=== PATIENT | female | born 1980 | race Caucasian/White ===

== ENCOUNTER 2017-07-22 02:25 | Emergency (ER) | payer OTHER ==
[~2017-07-22] VITALS: Ht 289.5 cm; Wt 81.6 kg
[~2017-07-22 02:25] MED LIST: AMANTADINE HCL100 M1 PO; AMANTADINE PO; AMANTADINE100 MG PO; AMANTIDINE HCL100 MG PO; ATARAX,VISTARIL50 MG PO; BACTRIM DS 8001 TA1 PO; BENADRYL25 M2 PO; BUSPAR5 MG PO; CARBIDOPA/LEVOD1 TA1 PO; CATAPRES0.2 M1 PO; CLOTRIM ANTIFUNGAL1% T; Cleocin150 MG PO; EFFEXOR XR150 M1 PO; EFFEXOR XR150 MG PO; EFFEXOR XR75 M1 PO; FLEXERIL10 MG PO; KLONOPIN2 M1 PO; KLONOPIN2 MG PO; KROGER NIC21 MG/24 H T; MACROBID100 M1 PO; MAGIC MOUTHWASH PO; MIRALAX POWDER17 G1 PO; MOTRIN800 MG PO; ONDANSETRON HYDR4 M1 PO; PHENADOZ12.5 MG R; PRILOSEC OTC20 MG PO; PRILOSEC20 M1 PO; PRILOSEC40 M1 PO; PRILOSEC40 MG PO; PROTONIX40 MG PO; REMERON30 MG PO; SINEMET 25-1001 TA1 PO; THERA TABS1 TAB PO; TRAZADONE HYDR100 MG PO; TRAZODONE HCL150 MG PO; TRAZODONE150 MG PO; TRAZODONE50 MG PO; VENTOLIN H0.09 MG/AC INH; VISTARIL50 MG PO; ZOFRAN ODT4 MG SL; Zofran4 MG PO
[2017-07-22 03:18] LABS: BASO % 0.6 % (0.0-1.0); EOS # 0.2 10*3/uL (0.0-0.4); EOS % 3.9 % (1.0-4.0); HEMATOCRIT 34.7 % (37.0-47.0); HEMOGLOBIN 11.5 g/dl (12.0-16.0); LYMPH # 2.1 10*3/uL (1.3-4.4); LYMPH % 39.7 % (27.0-41.0); MEAN CELL VOLUME 90.1 fl (81.0-99.0); MEAN CORPUSCULAR HGB 29.9 pg (27.0-31.0); MEAN CORPUSCULAR HGB CONC 33.1 g/dl (33.0-37.0); MEAN PLATELET VOLUME 9.8 fl (9.6-12.3); MONO # 0.6 10*3/uL (0.1-1.0); MONO % 10.5 % (3.0-9.0); NEUT # 2.4 10*3/uL (2.3-7.9); NEUT % 45.1 % (47.0-73.0); PLATELET COUNT AUTOMATED 182 10*3/uL (130-400); RED BLOOD COUNT 3.85 10*6/uL (4.10-5.10); RED CELL DISTRI WIDTH 12.6 % (0-14.5); WHITE BLOOD COUNT 5.3 10*3/uL (4.8-10.8)
[2017-07-22 03:32] LABS: BILIRUBIN NEGATIVE (NEGATIVE); BLOOD NEGATIVE (NEGATIVE); CLARITY SL CLOUDY (CLEAR); COLOR YELLOW (YELLOW); GLUCOSE NEGATIVE (NEGATIVE); KETONE NEGATIVE (NEGATIVE); LEUKO ESTERASE NEGATIVE (NEGATIVE); NITRITE NEGATIVE (NEGATIVE); SPECIFIC GRAVITY 1.015 (1.005-1.030); UROBILINOGEN 0.2 E.U./dl (0.2-1.0)
[2017-07-22 03:38] LABS: BUN 6 mg/dl (7-24); CREATININE 0.95 mg/dL (0.55-1.02)
[2017-07-22 03:40] LABS: URINE AMPHETAMINES < 1000 (1000ng/ml); URINE BARBITURATES < 200 (200ng/ml); URINE BENZODIAZEPINES < 200 (200ng/ml); URINE CANNABINOIDS (THC) > 50 (50ng/ml); URINE COCAINE > 300 (300ng/ml); URINE METHADONE < 300 (300ng/ml); URINE OPIATES > 300 (300ng/ml); URINE PHENCYCLIDINE < 25 (25ng/ml)
[2017-07-22 03:41] LABS: EPITHELIAL CELLS 40-45; RBC 0-2 rbc/hpf (0-2); WBC 0-2 wbc/hpf (0-5)
[2017-07-22 03:44] LABS: ACETAMINOPHEN (TYLENOL) < 2.0 ug/ml (10-30); ETHYL ALCOHOL < 3.0 mg/dl (<3)
[2017-07-22 04:25] LABS: CHLORIDE 104 mmol/L (98-107); POTASSIUM 3.6 mmol/L (3.5-5.1); SODIUM 141 mmol/L (136-145)
== END 2017-07-22 04:18 | disposition home or self-care (01) ==
LOC: ED 02:25
PROVIDERS: Emergency Medicine Emergency Medical Services
DX: F41.1 Generalized anxiety disorder (principal); F43.0 Acute stress reaction; F17.200 Nicotine dependence, unspecified, uncomplicated; F11.10 Opioid abuse, uncomplicated; J45.909 Unspecified asthma, uncomplicated; F32.9 Major depressive disorder, single episode, unspecified; G25.81 Restless legs syndrome; G20 Parkinson's disease; Z79.899 Other long term (current) drug therapy; Z91.030 Bee allergy status; Z88.1 Allergy status to other antibiotic agents

== ENCOUNTER 2017-07-24 07:30 | Emergency (ER) | payer OTHER ==
[~2017-07-24] VITALS: Ht 162.5 cm
[2017-07-24] MEDS ORDERED: NIX CREME RINSE60 M1 T (08:04)
[2017-07-24] MEDS ORDERED: VISTARIL25 M2 PO (08:04)
== END 2017-07-24 08:18 | disposition home or self-care (01) ==
LOC: ED 07:30
DX: F19.10 Other psychoactive substance abuse, uncomplicated (principal); F41.9 Anxiety disorder, unspecified; L29.9 Pruritus, unspecified; J45.909 Unspecified asthma, uncomplicated; F11.10 Opioid abuse, uncomplicated; F17.200 Nicotine dependence, unspecified, uncomplicated; Z91.030 Bee allergy status; Z88.1 Allergy status to other antibiotic agents; Z91.018 Allergy to other foods; Z79.899 Other long term (current) drug therapy

== ENCOUNTER 2017-10-25 13:46 | Emergency (ER) | payer OTHER ==
[~2017-10-25] VITALS: Ht 162.5 cm; Wt 83.9 kg
[~2017-10-25 13:46] MED LIST changes: +NIX CREME RINSE60 M1 T; +VISTARIL25 M2 PO
[2017-10-25 14:22] LABS: BASO % 0.6 % (0.0-1.0); EOS # 0.1 10*3/uL (0.0-0.4); EOS % 2.3 % (1.0-4.0); HEMATOCRIT 31.3 % (37.0-47.0); HEMOGLOBIN 10.3 g/dl (12.0-16.0); LYMPH # 1.4 10*3/uL (1.3-4.4); LYMPH % 26.8 % (27.0-41.0); MEAN CELL VOLUME 89.7 fl (81.0-99.0); MEAN CORPUSCULAR HGB 29.5 pg (27.0-31.0); MEAN CORPUSCULAR HGB CONC 32.9 g/dl (33.0-37.0); MEAN PLATELET VOLUME 10.1 fl (9.6-12.3); MONO # 0.5 10*3/uL (0.1-1.0); MONO % 9.3 % (3.0-9.0); NEUT # 3.1 10*3/uL (2.3-7.9); NEUT % 60.4 % (47.0-73.0); PLATELET COUNT AUTOMATED 170 10*3/uL (130-400); RED BLOOD COUNT 3.49 10*6/uL (4.10-5.10); RED CELL DISTRI WIDTH 14.5 % (0-14.5); WHITE BLOOD COUNT 5.2 10*3/uL (4.8-10.8)
[2017-10-25 14:42] LABS: ALBUMIN 3.4 gm/dl (3.1-4.5); ALKALINE PHOSPHATASE 86 U/L (45-117); BUN 6 mg/dl (7-24); CHLORIDE 105 mmol/L (98-107); CREATININE 1.02 mg/dL (0.55-1.02); POTASSIUM 4.3 mmol/L (3.5-5.1); SGOT/AST 49 IU/L (3-35); SGPT/ALT 37 U/L (12-78); SODIUM 139 mmol/L (136-145); TOTAL PROTEIN 7.4 gm/dL (6.4-8.2)
[2017-10-25] MEDS ORDERED: ANAPROX DS550 MG PO (14:54)
[2017-10-25] MEDS ORDERED: CEFADROXIL500 M1 PO (14:54)
== END 2017-10-25 14:59 | disposition home or self-care (01) ==
LOC: ED 13:46
PROVIDERS: Physician Assistant
DX: L03.114 Cellulitis of left upper limb (principal); F10.10 Alcohol abuse, uncomplicated; F17.200 Nicotine dependence, unspecified, uncomplicated; Z91.030 Bee allergy status; Z88.1 Allergy status to other antibiotic agents; Z79.899 Other long term (current) drug therapy; Z86.14 Personal history of Methicillin resistant Staphylococcus aureus infection; Z86.19 Personal history of other infectious and parasitic diseases

== ENCOUNTER 2017-12-18 08:34 | Emergency (ER) | payer OTHER ==
[~2017-12-18] VITALS: Ht 162.5 cm; Wt 81.6 kg
[~2017-12-18 08:34] MED LIST changes: +ANAPROX DS550 MG PO; +CEFADROXIL500 M1 PO
[2017-12-18] MEDS ORDERED: OMEPRAZOLE D/R20 MG PO (08:53)
[2017-12-18] MEDS ORDERED: CLARITIN10 MG PO ×2 (08:53→10:10)
[2017-12-18] MEDS ORDERED: FLONASE ALLERG9.9 ML NAS (10:10)
[2017-12-18] MEDS ORDERED: PREDNISONE10 MG PO (10:10)
[2017-12-18] MEDS ORDERED: ROBITUSSIN DM 105 ML PO (10:10)
== END 2017-12-18 10:48 | disposition home or self-care (01) ==
LOC: ED 08:34
DX: J20.9 Acute bronchitis, unspecified (principal); R03.0 Elevated blood-pressure reading, without diagnosis of hypertension; J45.909 Unspecified asthma, uncomplicated; F41.9 Anxiety disorder, unspecified; F32.9 Major depressive disorder, single episode, unspecified; F17.200 Nicotine dependence, unspecified, uncomplicated; F10.10 Alcohol abuse, uncomplicated; Z91.030 Bee allergy status; Z88.1 Allergy status to other antibiotic agents; Z88.8 Allergy status to other drugs, medicaments and biological substances; Z79.899 Other long term (current) drug therapy

== ENCOUNTER 2018-02-07 10:57 | Emergency (ER) | payer OTHER ==
[~2018-02-07] VITALS: Ht 162.5 cm; Wt 86.2 kg
[~2018-02-07 10:57] MED LIST changes: +CLARITIN10 MG PO; +FLONASE ALLERG9.9 ML NAS; +OMEPRAZOLE D/R20 MG PO; +PREDNISONE10 MG PO; +ROBITUSSIN DM 105 ML PO
[2018-02-07 11:34] LABS: BASO # 0.1 10*3/uL (0.0-0.1); BASO % 0.6 % (0.0-1.0); EOS # 0.1 10*3/uL (0.0-0.4); EOS % 0.7 % (1.0-4.0); HEMOGLOBIN 12.5 g/dl (12.0-16.0); LYMPH # 1.1 10*3/uL (1.3-4.4); LYMPH % 12.7 % (27.0-41.0); MEAN CELL VOLUME 87.3 fl (81.0-99.0); MEAN CORPUSCULAR HGB 29.5 pg (27.0-31.0); MEAN CORPUSCULAR HGB CONC 33.8 g/dl (33.0-37.0); MEAN PLATELET VOLUME 10.3 fl (9.6-12.3); MONO # 0.7 10*3/uL (0.1-1.0); MONO % 8.4 % (3.0-9.0); NEUT # 6.5 10*3/uL (2.3-7.9); NEUT % 77.4 % (47.0-73.0); PLATELET COUNT AUTOMATED 192 10*3/uL (130-400); RED BLOOD COUNT 4.24 10*6/uL (4.10-5.10); RED CELL DISTRI WIDTH 13.8 % (0-14.5); WHITE BLOOD COUNT 8.4 10*3/uL (4.8-10.8)
[2018-02-07 11:46] LABS: ACT PARTIAL THROMBO TIME 29.7 SECONDS (20.8-31.5)
[2018-02-07 11:51] LABS: ALBUMIN 3.9 gm/dl (3.1-4.5); ALKALINE PHOSPHATASE 118 U/L (45-117); BUN 6 mg/dl (7-24); CHLORIDE 98 mmol/L (98-107); CREATININE 0.75 mg/dL (0.55-1.02); POTASSIUM 3.9 mmol/L (3.5-5.1); SGOT/AST 112 IU/L (3-35); SGPT/ALT 67 U/L (12-78); SODIUM 133 mmol/L (136-145); TOTAL PROTEIN 8.4 gm/dL (6.4-8.2); TROPONIN I < 0.015 ng/ml (<0.045)
[2018-02-07 12:03] LABS: BILIRUBIN NEGATIVE (NEGATIVE); BLOOD NEGATIVE (NEGATIVE); CLARITY SL CLOUDY (CLEAR); COLOR YELLOW (YELLOW); GLUCOSE NEGATIVE (NEGATIVE); KETONE NEGATIVE (NEGATIVE); LEUKO ESTERASE 1+ (NEGATIVE); NITRITE NEGATIVE (NEGATIVE); PH 6.5 (5.0-9.0); SPECIFIC GRAVITY <= 1.005 (1.005-1.030); UROBILINOGEN 0.2 E.U./dl (0.2-1.0)
[2018-02-07 12:10] LABS: URINE AMPHETAMINES < 1000 (1000ng/ml); URINE BARBITURATES < 200 (200ng/ml); URINE BENZODIAZEPINES < 200 (200ng/ml); URINE CANNABINOIDS (THC) < 50 (50ng/ml); URINE COCAINE > 300 (300ng/ml); URINE METHADONE < 300 (300ng/ml); URINE OPIATES < 300 (300ng/ml)
[2018-02-07 12:11] LABS: BACTERIA 1+; EPITHELIAL CELLS 16-20
[2018-02-07 12:13] LABS: URINE PHENCYCLIDINE < 25 (25ng/ml)
== END 2018-02-07 13:08 | disposition home or self-care (01) ==
LOC: ED 10:57
PROVIDERS: Emergency Medicine
DX: F14.10 Cocaine abuse, uncomplicated (principal); F11.10 Opioid abuse, uncomplicated; F10.10 Alcohol abuse, uncomplicated; F41.9 Anxiety disorder, unspecified; J45.909 Unspecified asthma, uncomplicated; Z88.4 Allergy status to anesthetic agent; Z91.030 Bee allergy status; Z86.19 Personal history of other infectious and parasitic diseases

== ENCOUNTER 2018-04-05 15:48 | Inpatient (IN) | payer OTHER ==
[~2018-04-05] VITALS: Ht 162.5 cm; Wt 83.9 kg
[2018-04-05] VITALS: BP 135/78
[2018-04-05 16:49] VITALS: BP 158/80
[2018-04-05] MEDS ORDERED: BUPRENORPHINE HY8 MG SL (17:17)
[2018-04-05 17:27] LABS: BASO % 0.5 % (0.0-1.0); EOS # 0.1 10*3/uL (0.0-0.4); EOS % 0.8 % (1.0-4.0); HEMATOCRIT 34.8 % (37.0-47.0); HEMOGLOBIN 11.9 g/dl (12.0-16.0); LYMPH # 2.8 10*3/uL (1.3-4.4); LYMPH % 43.3 % (27.0-41.0); MEAN CELL VOLUME 86.1 fl (81.0-99.0); MEAN CORPUSCULAR HGB 29.5 pg (27.0-31.0); MEAN CORPUSCULAR HGB CONC 34.2 g/dl (33.0-37.0); MEAN PLATELET VOLUME 9.6 fl (9.6-12.3); MONO # 0.4 10*3/uL (0.1-1.0); MONO % 6.3 % (3.0-9.0); NEUT # 3.1 10*3/uL (2.3-7.9); NEUT % 48.9 % (47.0-73.0); PLATELET COUNT AUTOMATED 177 10*3/uL (130-400); RED BLOOD COUNT 4.04 10*6/uL (4.10-5.10); RED CELL DISTRI WIDTH 12.4 % (0-14.5); WHITE BLOOD COUNT 6.4 10*3/uL (4.8-10.8)
[2018-04-05 17:30] VITALS: BP 158/80
[2018-04-05 17:36] LABS: INTERNATIONAL NORM RATIO 1.1 (2.0-3.5)
[2018-04-05 17:42] LABS: ALBUMIN 3.7 gm/dl (3.1-4.5); ALKALINE PHOSPHATASE 97 U/L (45-117); BUN 5 mg/dl (7-24); CHLORIDE 98 mmol/L (98-107); CREATININE 0.77 mg/dL (0.55-1.02); POTASSIUM 3.5 mmol/L (3.5-5.1); SGOT/AST 72 IU/L (3-35); SGPT/ALT 53 U/L (12-78); SODIUM 132 mmol/L (136-145); TOTAL PROTEIN 7.5 gm/dL (6.4-8.2)
[2018-04-05 17:49] LABS: BETA-HCG, QUANT < 1.0 mIU/mL (1-3)
[2018-04-05] MEDS ORDERED: BUPRENORPHINE HY2 MG SL (17:58)
[2018-04-05] MEDS ORDERED: VISTARIL50 MG PO (17:59)
[2018-04-05] MEDS ORDERED: AMANTADINE HCL100 M1 PO (18:00)
[2018-04-05] MEDS ORDERED: OMEPRAZOLE40 MG PO (18:01)
[2018-04-05] MEDS ORDERED: IBU800 M1 PO (18:02)
[2018-04-05 18:41] LABS: BILIRUBIN NEGATIVE (NEGATIVE); BLOOD NEGATIVE (NEGATIVE); CLARITY CLEAR (CLEAR); COLOR YELLOW (YELLOW); GLUCOSE NEGATIVE (NEGATIVE); KETONE NEGATIVE (NEGATIVE); LEUKO ESTERASE NEGATIVE (NEGATIVE); NITRITE NEGATIVE (NEGATIVE); SPECIFIC GRAVITY <= 1.005 (1.005-1.030); UROBILINOGEN 0.2 E.U./dl (0.2-1.0)
[2018-04-05 18:50] LABS: RBC 0-2 rbc/hpf (0-2); URINE AMPHETAMINES < 1000 (1000ng/ml); URINE BARBITURATES < 200 (200ng/ml); URINE BENZODIAZEPINES < 200 (200ng/ml); URINE CANNABINOIDS (THC) < 50 (50ng/ml); URINE COCAINE > 300 (300ng/ml); URINE METHADONE < 300 (300ng/ml); URINE OPIATES > 300 (300ng/ml); WBC 0-2 wbc/hpf (0-5)
[2018-04-05 18:51] LABS: BACTERIA TRACE
[2018-04-05 18:53] LABS: URINE PHENCYCLIDINE < 25 (25ng/ml)
[2018-04-05 20:00] VITALS: BP 119/71
[2018-04-06 04:00] VITALS: BP 149/80
[2018-04-06 08:00] VITALS: BP 142/72
[2018-04-06 12:00] VITALS: BP 122/72
[2018-04-06 16:00] VITALS: BP 141/91
[2018-04-06 20:00] VITALS: BP 162/93
[2018-04-06 20:30] VITALS: BP 156/84
[2018-04-07 00:12] VITALS: BP 115/84
[2018-04-07 08:00] VITALS: BP 130/84
[2018-04-07 12:00] VITALS: BP 126/78
[2018-04-07 20:00] VITALS: BP 134/83
[2018-04-08] VITALS: BP 129/69
[2018-04-08 07:04] LABS: BASO % 0.8 % (0.0-1.0); EOS # 0.2 10*3/uL (0.0-0.4); EOS % 4.7 % (1.0-4.0); HEMATOCRIT 38.2 % (37.0-47.0); HEMOGLOBIN 12.8 g/dl (12.0-16.0); LYMPH # 1.8 10*3/uL (1.3-4.4); LYMPH % 47.4 % (27.0-41.0); MEAN CORPUSCULAR HGB 29.5 pg (27.0-31.0); MEAN CORPUSCULAR HGB CONC 33.5 g/dl (33.0-37.0); MEAN PLATELET VOLUME 10.3 fl (9.6-12.3); MONO # 0.4 10*3/uL (0.1-1.0); MONO % 9.1 % (3.0-9.0); NEUT # 1.5 10*3/uL (2.3-7.9); PLATELET COUNT AUTOMATED 190 10*3/uL (130-400); RED BLOOD COUNT 4.34 10*6/uL (4.10-5.10); RED CELL DISTRI WIDTH 12.4 % (0-14.5); WHITE BLOOD COUNT 3.8 10*3/uL (4.8-10.8)
[2018-04-08 07:25] LABS: CREATININE 0.77 mg/dL (0.55-1.02)
[2018-04-08 08:00] VITALS: BP 122/74
[2018-04-08 12:00] VITALS: BP 127/72
[2018-04-08 16:00] VITALS: BP 125/72
[2018-04-08 20:00] VITALS: BP 113/81
== END 2018-04-08 23:15 | disposition left against medical advice (07) | DRG 894 ==
LOC: 5E 15:48
PROVIDERS: Family Medicine; Internal Medicine
DX: F11.10 Opioid abuse, uncomplicated (principal); E87.1 Hypo-osmolality and hyponatremia; F33.9 Major depressive disorder, recurrent, unspecified; F10.129 Alcohol abuse with intoxication, unspecified; D64.9 Anemia, unspecified; F19.10 Other psychoactive substance abuse, uncomplicated; F14.10 Cocaine abuse, uncomplicated; R73.9 Hyperglycemia, unspecified; F41.1 Generalized anxiety disorder; R74.0 Nonspecific elevation of levels of transaminase and lactic acid dehydrogenase [LDH]; B18.2 Chronic viral hepatitis C; F17.210 Nicotine dependence, cigarettes, uncomplicated; Z82.49 Family history of ischemic heart disease and other diseases of the circulatory system; Z83.6 Family history of other diseases of the respiratory system; Z83.3 Family history of diabetes mellitus; Z82.0 Family history of epilepsy and other diseases of the nervous system; Z88.8 Allergy status to other drugs, medicaments and biological substances; Z91.030 Bee allergy status; Z91.018 Allergy to other foods; Z79.899 Other long term (current) drug therapy; Z71.6 Tobacco abuse counseling

== ENCOUNTER 2019-01-30 16:03 | Emergency (ER) | payer OTHER ==
[~2019-01-30] VITALS: Ht 162.5 cm; Wt 86.2 kg
[~2019-01-30 16:03] MED LIST changes: +BUPRENORPHINE HY2 MG SL; +BUPRENORPHINE HY8 MG SL; +IBU800 M1 PO; +OMEPRAZOLE40 MG PO
[2019-01-30] MEDS ORDERED: VIBRAMYCIN100 MG PO (17:27)
[2019-01-30] MEDS ORDERED: DELTASONE20 M1 PO (17:27)
[2019-02-22] MEDS ORDERED: DOCUSATE SODIU100 M2 PO (18:28)
[2019-02-22] MEDS ORDERED: BUSPIRONE HCL30 MG PO (18:28)
[2019-02-22] MEDS ORDERED: AMANTADINE HCL100 M1 PO (18:29)
[2019-02-22] MEDS ORDERED: OMEPRAZOLE40 MG PO (18:29)
[2019-02-22] MEDS ORDERED: VENLAFAXINE150 MG PO (18:30)
[2019-02-22] MEDS ORDERED: ATARAX,VISTARIL50 MG PO (18:31)
[2019-02-25] MEDS ORDERED: METHOCARBAMOL750 M1 PO (12:17)
[2019-02-25] MEDS ORDERED: ROPINIROLE HYD0.5 MG PO (12:17)
[2019-02-25] MEDS ORDERED: ATARAX,VISTARIL50 MG PO (12:17)
[2019-02-25] MEDS ORDERED: LORAZEPAM1 MG PO (12:17)
[2019-03-21] MEDS ORDERED: TRAZODONE50 MG PO (22:59)
[2019-03-21] MEDS ORDERED: [UNRECOGNIZED DRUG - OTHER] R (23:00)
[2019-03-21] MEDS ORDERED: HYDROXYZINE PAM50 MG PO (23:02)
[2019-03-21] MEDS ORDERED: HYDROCHLOROTH12.5 M3 PO (23:03)
[2019-03-21] MEDS ORDERED: LORAZEPAM1 MG PO (23:03)
[2019-07-11] MEDS ORDERED: CEPHALEXIN500 M1 PO (10:57)
[2019-07-11] MEDS ORDERED: ZOFRAN4 MG PO (10:57)
== END 2019-01-30 17:45 | disposition home or self-care (01) ==
LOC: ED 16:03
DX: J40 Bronchitis, not specified as acute or chronic (principal); H92.02 Otalgia, left ear; F17.200 Nicotine dependence, unspecified, uncomplicated; Z91.030 Bee allergy status; Z88.1 Allergy status to other antibiotic agents

== ENCOUNTER 2019-03-26 23:07 | Emergency (ER) | payer OTHER ==
[~2019-03-26] VITALS: Ht 162.5 cm; Wt 90.7 kg
[~2019-03-26 23:07] MED LIST changes: +BUSPIRONE HCL30 MG PO; +DELTASONE20 M1 PO; +DOCUSATE SODIU100 M2 PO; +HYDROCHLOROTH12.5 M3 PO; +HYDROXYZINE PAM50 MG PO; +LORAZEPAM1 MG PO; +METHOCARBAMOL750 M1 PO; +ROPINIROLE HYD0.5 MG PO; +VENLAFAXINE150 MG PO; +VIBRAMYCIN100 MG PO; +[UNRECOGNIZED DRUG - OTHER] R
[2019-03-26] MEDS ORDERED: 'CLONIDINE0.1 MG PO (23:14)
[2019-03-26] MEDS ORDERED: DICYCLOMINE HCL10 MG PO (23:16)
[2019-03-26] MEDS ORDERED: BACLOFEN5 MG PO (23:16)
[2019-03-26] MEDS ORDERED: VIVITROL380 MG IM (23:17)
[2019-07-11] MEDS ORDERED: ZOFRAN4 MG PO (10:57)
[2019-07-11] MEDS ORDERED: CEPHALEXIN500 M1 PO (10:57)
== END 2019-03-27 03:01 | disposition short-term general hospital (02) ==
LOC: ED 23:07
DX: S51.812A Laceration without foreign body of left forearm, initial encounter (principal); F17.200 Nicotine dependence, unspecified, uncomplicated; Z88.1 Allergy status to other antibiotic agents; Z79.899 Other long term (current) drug therapy; Z91.030 Bee allergy status; Z91.018 Allergy to other foods; Z87.19 Personal history of other diseases of the digestive system; Z86.19 Personal history of other infectious and parasitic diseases; W26.0XXA Contact with knife, initial encounter; Y93.89 Activity, other specified; Y92.89 Other specified places as the place of occurrence of the external cause; Y99.8 Other external cause status

== ENCOUNTER 2019-04-27 18:49 | Inpatient (IN) | payer OTHER ==
[~2019-04-27] VITALS: Ht 162.5 cm; Wt 95.8 kg
--- NOTE | ~2019-04-27 | CON ---
[place], [place] REPORT OF CONSULTATION NAME: ETHAN ESPINOZA [facility] #: [id number] UNIT #: [id number] ROOM: 420 DOCTOR: METE FIGUEROA MD BIRTHDATE: [birth year] DOS: 04/29/2019 GASTROENDOSCOPIC CONSULTATION REPORT HISTORY OF PRESENT ILLNESS: This is a 38-year-old patient who presented with chief complaint of epigastric abdominal pain. The patient has been consumer of avid number of nonsteroidal anti-inflammatories per day, also history of nicotine consumption as well as history of alcohol usage for years and at the present as well. Her abdominal pain in the Emergency Room was investigated with a CBC: White blood cell was 54.9, H and H of 10 and 32, normocytic with normal platelet count. Differential within normal limits. Lactic acid was normal. INR was 1.1. Comprehensive metabolic panel shows creatinine 1.3, GFR greater than 67. Liver function tests: AST, ALT of 60 and 48 and lipase of 506, alkaline phosphatase normal. Troponin within normal limits. Chest x-ray was normal. Urine drug studies were normal. The CT scan of the abdomen and pelvis unremarkable cervical neck studies, no acute intracranial pathology. CT scan of the head was evaluated and no intracranial pathology. Glucose of 88 and repeat study is essentially the same. No pedal edema, affect of GI bleed except dilutions and so forth. PAST MEDICAL HISTORY: Associated with recurrent pancreatitis, anemia, endometriosis, alcohol withdrawal symptoms, gastroesophageal reflux, cross abdominal pain, and obesity. PAST SURGICAL HISTORY: Associated benign mass, left leg, laparoscopy history endometriosis diagnosis and minor surgeries. SOCIAL HISTORY: Smoker and alcohol consumption, recreational drugs abuse and choice of drugs, heroin. FAMILY HISTORY: Supportive family. Diabetes, hypertension. ALLERGIES: CLINDAMYCIN AND FOOD ALLERGIES TO WALNUT, FUNDAMENTAL ALLERGIES TO BEE STING. MEDICATIONS: List was reviewed. REVIEW OF SYSTEMS: HEENT: Denies double vision, blurred vision. RESPIRATORY: Denies acute shortness of breath. CARDIOVASCULAR: No active chest pain. DIGESTIVE SYSTEM: Cross abdominal pain. GASTROINTESTINAL SYMPTOMS: Except cross abdominal pain, recurrent pancreatitis. PHYSICAL EXAMINATION: GENERAL: Appears to be alert. VITAL SIGNS: Within normal limit. HEENT: Benign for age and category of disease. NECK: Supple, no thyromegaly. CHEST: Symmetric anatomy and equal expansion. [place], [place] REPORT OF CONSULTATION NAME: ETHAN ESPINOZA UNIT #: [id number] ROOM: 420 DOCTOR: HENRY ARIZA,MEET BIRTHDATE: [birth year] HEART: Normal sinus rhythm, no gallop. ABDOMEN: Large, soft. No hepato-organomegaly. Bowel sounds, nonspecific tenderness in all quadrants of the abdomen. EXTREMITIES: No cyanosis, no pedal edema. NEUROLOGIC: Alert and oriented to time, place and person. IMPRESSION: Alcoholic pancreatitis, nicotine, alcohol and recreational drugs. Other adjunctive diagnoses as outlined above. The patient has been avid consumer of nonsteroidal anti-inflammatory. We are ruling out peptic ulcer disease in addition, history of hepatitis C, history of complication of drug and alcohol use, recurrent pancreatitis. PLAN AND DISCUSSION: Endoscopic evaluation and clinical reassessment. MEET FIGUEROA MD CM:CONSTR:REPORT OF CONSULTATION 1437 05/11/19 0722 interface
--- NOTE | ~2019-04-27 | O ---
[place], [place] OPERATIVE NOTE NAME: ETHAN ESPINOZA UNIT #: [id number] ROOM: 420 DOCTOR: MEET FIGUEROA MD BIRTHDATE: [birth year] DOS: 04/29/2019 INDICATIONS: The patient has presented with epigastric distress, initially elevated lipase, subsequently normalized lipase, history of avid consumption of nonsteroidal anti-inflammatory. Today's procedure part of investigation is panendoscopy plus biopsy. PREMEDICATION: Propofol. SCOPE: Olympus forward-viewing gastroscope Q10 video. PROCEDURE: After putting the patient in left lateral position and application of lubricant to the scope, the scope was introduced. Thereafter, under direct visualization, advanced through the length of esophagus without difficulty. Esophagus was free of esophageal varicosity surprisingly. Gastric pouch was entered. Mild gastritis was seen. There was no evidence of gastric varicosity as well. Gastritis was noticed. Antral biopsy obtained. Duodenal bulb, second and third part within normal limits. The patient extubated and tolerated the procedure well. IMPRESSION: Epigastric pain, most likely secondary to mild gastritis and residual pancreatitis. There were no ulcers secondary to nonsteroidal anti-inflammatory, chronic abuse. PLAN AND DISCUSSION: This patient would be placed on omeprazole 20 mg 1 every day, soft diet. Advised to abstain from smoking, recreational drug use and alcohol beverages and follow up as outpatient. MEET FIGUEROA MD CM:OPRECORD:OPERATIVE NOTE [id number] MEET FIGUEROA MD 04/30/19 1153 interface
--- NOTE | ~2019-04-27 | EKG ---
[place], [place] ELECTROCARDIOGRAM REPORT NAME: ETHAN ESPINOZA UNIT #: [id number] ROOM: 420 DOCTOR: HERBERT DRAFT REPORT BIRTHDATE: [birth year] [facility] Test Date: 2019-04-27 Test Time: 19:27:11 Pat Name: ETHAN ESPINOZA Department: Room: 420 Gender: F Brownfield Redevelopment Specialist: : 1980 Requested By: ANTOINE MARCOS DNP Order Number: [id number] Reading MD: Josie Sanchez Measurements Intervals [place] Rate: 87 P: 77 PA: 146 QRS: 70 QRSD: 88 T: 48 QT: 400 QTc: 482 Interpretive Statements Sinus rhythm Baseline wander in lead(s) II,III,aVF Compared to ECG 04/11/2019 08:59:54 No significant changes Electronically Signed On 05-01-2019 11:44:42 PDT by Josie Sanchez CM:EKGRPT:ELECTROCARDIOGRAM REPORT 26 1144 ANTOINE MARCOS DNP EPIPHANY DRAFT REPORT ANTOINE MARCOS DNP
[~2019-04-27 18:49] MED LIST changes: +'CLONIDINE0.1 MG PO; +BACLOFEN5 MG PO; +DICYCLOMINE HCL10 MG PO; +VIVITROL380 MG IM
[2019-04-27 18:50] VITALS: BP 151/101
[2019-04-27] MEDS ORDERED: HYDROCHLOROTHIA25 M1 PO (18:57)
[2019-04-27 19:37] LABS: BASO # 0.1 10*3/uL (0.0-0.1); EOS # 0.2 10*3/uL (0.0-0.4); EOS % 3.3 % (1.0-4.0); HEMOGLOBIN 10.4 g/dl (12.0-16.0); LYMPH # 1.3 10*3/uL (1.3-4.4); LYMPH % 26.4 % (27.0-41.0); MEAN CELL VOLUME 90.9 fl (81.0-99.0); MEAN CORPUSCULAR HGB 29.5 pg (27.0-31.0); MEAN CORPUSCULAR HGB CONC 32.5 g/dl (33.0-37.0); MEAN PLATELET VOLUME 10.8 fl (9.6-12.3); MONO # 0.4 10*3/uL (0.1-1.0); MONO % 9.1 % (3.0-9.0); NEUT # 2.9 10*3/uL (2.3-7.9); PLATELET COUNT AUTOMATED 152 10*3/uL (130-400); RED BLOOD COUNT 3.52 10*6/uL (4.10-5.10); RED CELL DISTRI WIDTH 14.1 % (0-14.5); WHITE BLOOD COUNT 4.9 10*3/uL (4.8-10.8)
[2019-04-27 19:49] LABS: INTERNATIONAL NORM RATIO 1.1 (2.0-3.5)
[2019-04-27 19:52] LABS: ALBUMIN 3.4 gm/dl (3.1-4.5); ALKALINE PHOSPHATASE 113 U/L (45-117); BUN 17 mg/dl (7-24); CHLORIDE 101 mmol/L (98-107); CREATININE 1.13 mg/dL (0.55-1.02); LIPASE 506 U/L (73-393); POTASSIUM 3.7 mmol/L (3.5-5.1); SGOT/AST 60 IU/L (3-35); SGPT/ALT 48 U/L (12-78); SODIUM 135 mmol/L (136-145); TOTAL PROTEIN 7.7 gm/dL (6.4-8.2)
[2019-04-27 19:55] LABS: ETHYL ALCOHOL < 3.0 mg/dl (<3); TROPONIN I < 0.015 ng/ml (<0.045)
[2019-04-27 21:03] LABS: BILIRUBIN NEGATIVE (NEGATIVE); BLOOD NEGATIVE (NEGATIVE); CLARITY CLEAR (CLEAR); COLOR YELLOW (YELLOW); GLUCOSE NEGATIVE (NEGATIVE); KETONE NEGATIVE (NEGATIVE); LEUKO ESTERASE NEGATIVE (NEGATIVE); NITRITE NEGATIVE (NEGATIVE); SPECIFIC GRAVITY <= 1.005 (1.005-1.030); UROBILINOGEN 0.2 E.U./dl (0.2-1.0)
[2019-04-27 21:16] LABS: BACTERIA 1+; URINE AMPHETAMINES < 1000 (1000ng/ml); URINE BARBITURATES < 200 (200ng/ml); URINE BENZODIAZEPINES < 200 (200ng/ml); URINE CANNABINOIDS (THC) < 50 (50ng/ml); URINE COCAINE < 300 (300ng/ml); URINE METHADONE < 300 (300ng/ml); URINE OPIATES < 300 (300ng/ml); WBC 0-2 wbc/hpf (0-5)
[2019-04-27 21:17] LABS: URINE PHENCYCLIDINE < 25 (25ng/ml)
[2019-04-27 21:42] VITALS: BP 144/93
[2019-04-27 22:05] VITALS: BP 153/95
--- NOTE | 2019-04-27 22:05 | NUR ---
A 38, admitted to , under the services of AMITA Pichardo DO with a diagnosis of ALCOHOL DEPENDENCE, PANCREATITIS. Chief complaint is ABDOMINAL PAIN. Patient arrived via being carried from ER. Monitor applied. Initial assessment completed. Vital signs taken and recorded. AMITA PICHARDO DO notified of admission to the unit. Orders received. See assessment for past medical history, medications and allergies. Patient and/or family oriented to unit. [address] visitation policy reviewed. Clothing/patient valuable form completed. TAE ASHRAF
--- NOTE | 2019-04-27 23:23 | NUR ---
PT ADMINISTERED PRN TORADOL AND RESTORIL FOR C/O ABDOMINAL PAIN AND INSOMNIA. WILL CONTINUE TO MONITOR.
[2019-04-28] VITALS: BP 149/116; BP 150/90
[2019-04-28 06:15] LABS: BASO % 0.7 % (0.0-1.0); EOS # 0.2 10*3/uL (0.0-0.4); EOS % 4.5 % (1.0-4.0); HEMATOCRIT 30.5 % (37.0-47.0); LYMPH # 1.5 10*3/uL (1.3-4.4); LYMPH % 35.6 % (27.0-41.0); MEAN CORPUSCULAR HGB 29.9 pg (27.0-31.0); MEAN CORPUSCULAR HGB CONC 32.8 g/dl (33.0-37.0); MEAN PLATELET VOLUME 10.5 fl (9.6-12.3); MONO # 0.4 10*3/uL (0.1-1.0); MONO % 10.1 % (3.0-9.0); NEUT # 2.1 10*3/uL (2.3-7.9); NEUT % 48.9 % (47.0-73.0); PLATELET COUNT AUTOMATED 139 10*3/uL (130-400); RED BLOOD COUNT 3.35 10*6/uL (4.10-5.10); RED CELL DISTRI WIDTH 14.3 % (0-14.5); WHITE BLOOD COUNT 4.2 10*3/uL (4.8-10.8)
[2019-04-28 06:26] LABS: ALBUMIN 3.3 gm/dl (3.1-4.5); ALKALINE PHOSPHATASE 87 U/L (45-117); BUN 13 mg/dl (7-24); CHLORIDE 107 mmol/L (98-107); CREATININE 0.93 mg/dL (0.55-1.02); LIPASE 164 U/L (73-393); PHOSPHOROUS 3.5 mg/dL (2.5-4.9); POTASSIUM 3.8 mmol/L (3.5-5.1); SGOT/AST 57 IU/L (3-35); SGPT/ALT 45 U/L (12-78); SODIUM 140 mmol/L (136-145)
[2019-04-28 06:27] LABS: TOTAL PROTEIN 7.2 gm/dL (6.4-8.2)
[2019-04-28 06:59] LABS: ACT PARTIAL THROMBO TIME 27.6 SECONDS (20.0-32.1); INTERNATIONAL NORM RATIO 1.1 (2.0-3.5)
--- NOTE | 2019-04-28 08:50 | NUR ---
PT MEDICATED WITH PRN ZOFRAN AND TORADOL FOR C/O NAUSEA AND ABDOMINAL PAIN THAT SHE RATES 06/08. WILL REACCESS.
[2019-04-28 08:58] LABS: VITAMIN D, 25-HYDROXY 41.1 ng/mL (30-100)
[2019-04-28 12:00] VITALS: BP 151/97
--- NOTE | 2019-04-28 13:00 | NUR ---
PRN MEDS APPEAR EFFECTIVE. PT SNORING.
[2019-04-28 16:00] VITALS: BP 134/68
--- NOTE | 2019-04-28 16:02 | NUR ---
PT TO HAVE EGD IN AM WITH DR. FIGUEROA.
--- NOTE | 2019-04-28 16:02 | NUR ---
LACTULOSE EFFECTIVE PER PT.
[2019-04-28 20:00] VITALS: BP 141/79
--- NOTE | 2019-04-28 20:35 | NUR ---
PT GIVEN VISTARIL, TYLENOL, AND RESTORIL FOR C/O ANXIETY, RESTLESS LEG PAIN, AND INSOMNIA. WILL MONITOR FOR EFFECTIVENESS. ASSESSMENT COMPLETE AT THIS TIME. NO TREMORS NOTED. PT DENIES SOB OR CHEST PAIN. VITALS WNL. BGM WNL. RESPIRATIONS EASY AND UNLABORED ON ROOM AIR. NO OTHER ACUTE ABNORMALITIES NOTED. FLUIDS RUNNING WITH EASE INTO IV SITE IN LEFT WRIST. DRESSING C/D/I. WILL CONTINUE TO MONITOR. CALL LIGHT IN REACH.
--- NOTE | 2019-04-28 21:35 | NUR ---
PRN MEDICATIONS EFFECTIVE. PT RESTING IN BED WITH EYES CLSOED AT THIS TIME. ALL SAFETY MEASURES IN PLACE. RESPIRATIONS EASY. CALL LIGHT IN REACH.
[2019-04-29] VITALS (8 sets, daily range): BP systolic 111–149; BP diastolic 65–93
--- NOTE | 2019-04-29 | NUR ---
Hep Lock discontinued TO LEFT HAND Site asymptomatic. Pressure applied. Sterile dressing applied. LANA COREAS
--- NOTE | 2019-04-29 00:15 | NUR ---
IV started right arm with #22 protective cath after 2 attempts. Site prepped with Chloroprep. Sterile dressing applied. Patient tolerated procedure well. IV infusing at 125 cc/hr. LANA COREAS
--- NOTE | 2019-04-29 03:22 | NUR ---
PT RESTING IN BED, RESPIRATIONS EASY AND UNLABORED ON ROOM AIR. IV FLUIDS INFUSING INTO RIGHT ARM. DRESSING C/D/I. NO S/S OF DISTRESS NOTED. CALL LIGHT IN REACH.
[2019-04-29 06:32] LABS: EOS # 0.2 10*3/uL (0.0-0.4); EOS % 6.2 % (1.0-4.0); HEMATOCRIT 30.5 % (37.0-47.0); HEMOGLOBIN 9.8 g/dl (12.0-16.0); LYMPH # 1.6 10*3/uL (1.3-4.4); LYMPH % 41.9 % (27.0-41.0); MEAN CELL VOLUME 92.7 fl (81.0-99.0); MEAN CORPUSCULAR HGB 29.8 pg (27.0-31.0); MEAN CORPUSCULAR HGB CONC 32.1 g/dl (33.0-37.0); MEAN PLATELET VOLUME 10.5 fl (9.6-12.3); MONO # 0.5 10*3/uL (0.1-1.0); MONO % 12.1 % (3.0-9.0); NEUT # 1.5 10*3/uL (2.3-7.9); NEUT % 38.5 % (47.0-73.0); PLATELET COUNT AUTOMATED 139 10*3/uL (130-400); RED BLOOD COUNT 3.29 10*6/uL (4.10-5.10); RED CELL DISTRI WIDTH 14.5 % (0-14.5); WHITE BLOOD COUNT 3.9 10*3/uL (4.8-10.8)
--- NOTE | 2019-04-29 09:00 | NUR ---
Industrial Gas Fitter in to talk to patient. Patient states lives at home with family. There are few steps in the home. Physician: jazzy carter [facility] Home health services: none Patient's level of ADLs: INDEPENDENT Patient has working utilities: all working DME: none Follow-up physician's appointment after d/c: will be made by hospitalist nurse director upon discharge Does patient want to access PORTAL?: no Discharge plan discussed with patient, patient lives at home with family, is independent in adls and ambualtion, patient states she will be going home whena able and denies any home needs. MACHELLE DIAZ
--- NOTE | 2019-04-29 12:05 | NUR ---
PATIENT TRANSPORTED OFF FLOOR FOR EGD AT THIS TIME. NO SIGNS OR SYMPTOMS OF DISTRESS. TRANSPORTED BY SURGERY PERSONEL.Y
--- NOTE | 2019-04-29 15:01 | NUR ---
PATIENT ARRIVED ON FLOOR AFTER EGD, NO SIGNS OR SYMPTOMS OF DISTRESS. TRANSPORTED BY SURGERY PERSONEL. VOICES NO CONCERNS. DAILY MEDS GIVEN TO PATIENT.
--- NOTE | 2019-04-29 19:00 | NUR ---
PT RESTING QUIETLY IN BED W/EYES CLOSED DURING BEDSIDE SHIFT REPORT. CALL LIGHT IN REACH.
--- NOTE | 2019-04-29 20:45 | NUR ---
SPOKE W/DR. ENRIQUEZ RE PO ATIVAN TAPER. TO PUT ORDER IN. PT C/O RLS, MUSCLE ACHES, NAUSEA, DIAPHORESIS, AND BILATERAL HAND TREMORS. MEDICATED W/PRN'S FOR S/S OF NIKKI.
--- NOTE | 2019-04-29 21:45 | NUR ---
PT RESTING QUEITLY IN BED AT THIS TIME. PRN MEDS EFFECTIVE.
--- NOTE | 2019-04-29 22:45 | NUR ---
24 HR chart check completed.
[2019-04-30] VITALS (7 sets, daily range): BP systolic 124–175; BP diastolic 61–98
--- NOTE | 2019-04-30 01:00 | NUR ---
PT RESTING QUIETLY IN BED W/EYES CLOSED. PRN ATIVAN EFFECTIVE.
--- NOTE | 2019-04-30 19:00 | NUR ---
PT AWAKE IN BED DURING BEDSIDE SHIFT REPORT. NO C/O VOICED.
--- NOTE | 2019-04-30 20:38 | NUR ---
PT MEDICATED W/RESTORIL TO HELP PROMOTE SLEEP. PT AMBULATING ABOUT IN ROOM. ICECREAM GIVEN TO PT PER REQUEST.
--- NOTE | 2019-04-30 21:30 | NUR ---
PT RESTING QUIETLY IN BED W/EYES CLOSED. PRN RESTORIL EFFECTIVE.
[2019-05-01] VITALS: BP 125/70
--- NOTE | 2019-05-01 00:44 | NUR ---
PT MEDICATED W/TYLENOL FOR C/O H/A 06/08. RESTING QUIETLY IN BED W/LIGHTS OFF AND DOOR CLOSED. CALL LIGHT IN REACH.
--- NOTE | 2019-05-01 03:35 | NUR ---
DR. MAYS NOTIFIED OF PT NEEDING A1C.
[2019-05-01 06:44] LABS: CREATININE 0.87 mg/dL (0.55-1.02)
[2019-05-01 08:00] VITALS: BP 141/89
--- NOTE | 2019-05-01 09:29 | NUR ---
PT COMPLAINS OF HEADACHE, STOMACHE CRAMPS, AND NAUSEA. PRN TYLENOL, BENTYL AND ZOFRAN GIVEN AT THIS TIME. WILL MONITOR FOR EFFECTIVENESS.
[2019-05-01] MEDS ORDERED: CARAFATE1 GM/10 ML PO (10:53)
[2019-05-01] MEDS ORDERED: CHLORDIAZEPOXID10 M2 PO (10:53)
[2019-05-01] MEDS ORDERED: OMEPRAZOLE40 MG PO (10:55)
--- NOTE | 2019-05-01 12:03 | NUR ---
Discharge instructions reviewed with patient/family. Patient receptive and verbalizes understanding. Follow-up care arranged. Written instructions given to patient/family. CARRINGTON BERRY
[2019-07-11] MEDS ORDERED: CEPHALEXIN500 M1 PO (10:57)
[2019-07-11] MEDS ORDERED: ZOFRAN4 MG PO (10:57)
== END 2019-05-01 12:10 | disposition home or self-care (01) | DRG 391 ==
LOC: ED 18:49 → 4E 20:46 → EDHOLD 20:46 → 4E 21:37
PROVIDERS: Family Medicine; Internal Medicine; Nurse Practitioner Family; ADMIT Internal Medicine
PROC: 0DB78ZX Excision of Stomach, Pylorus, Via Natural or Artificial Opening Endoscopic, Diagnostic (ICD-10-PCS; principal; 2019-04-29)
DX: K29.70 Gastritis, unspecified, without bleeding (principal); K85.20 Alcohol induced acute pancreatitis without necrosis or infection; E44.0 Moderate protein-calorie malnutrition; F10.29 Alcohol dependence with unspecified alcohol-induced disorder; K86.1 Other chronic pancreatitis; R00.0 Tachycardia, unspecified; R73.9 Hyperglycemia, unspecified; R82.71 Bacteriuria; F17.210 Nicotine dependence, cigarettes, uncomplicated; K59.00 Constipation, unspecified; B19.20 Unspecified viral hepatitis C without hepatic coma; E66.9 Obesity, unspecified; E78.5 Hyperlipidemia, unspecified; K21.9 Gastro-esophageal reflux disease without esophagitis; D64.9 Anemia, unspecified; G20 Parkinson's disease; F32.9 Major depressive disorder, single episode, unspecified; F41.1 Generalized anxiety disorder; W18.30XA Fall on same level, unspecified, initial encounter; Y93.89 Activity, other specified; Y99.8 Other external cause status; Z79.899 Other long term (current) drug therapy; Y92.098 Other place in other non-institutional residence as the place of occurrence of the external cause; Z71.6 Tobacco abuse counseling; Z88.1 Allergy status to other antibiotic agents; Z91.030 Bee allergy status; Z91.018 Allergy to other foods; Z82.49 Family history of ischemic heart disease and other diseases of the circulatory system; Z82.5 Family history of asthma and other chronic lower respiratory diseases; Z83.3 Family history of diabetes mellitus; Z82.0 Family history of epilepsy and other diseases of the nervous system; Z80.8 Family history of malignant neoplasm of other organs or systems; Z71.41 Alcohol abuse counseling and surveillance of alcoholic; Z71.51 Drug abuse counseling and surveillance of drug abuser; Z68.36 Body mass index [BMI] 36.0-36.9, adult

== ENCOUNTER 2019-05-08 23:24 | Emergency (ER) | payer OTHER ==
[~2019-05-08] VITALS: Ht 162.5 cm; Wt 95.3 kg
[~2019-05-08 23:24] MED LIST changes: +CARAFATE1 GM/10 ML PO; +CHLORDIAZEPOXID10 M2 PO; +HYDROCHLOROTHIA25 M1 PO
[2019-07-11] MEDS ORDERED: ZOFRAN4 MG PO (10:57)
[2019-07-11] MEDS ORDERED: CEPHALEXIN500 M1 PO (10:57)
== END 2019-05-09 02:04 | disposition home or self-care (01) ==
LOC: ED 23:24
DX: M25.571 Pain in right ankle and joints of right foot (principal); K21.9 Gastro-esophageal reflux disease without esophagitis; E78.5 Hyperlipidemia, unspecified; E66.9 Obesity, unspecified; F17.210 Nicotine dependence, cigarettes, uncomplicated; Z68.39 Body mass index [BMI] 39.0-39.9, adult; Z91.018 Allergy to other foods; Z91.030 Bee allergy status; Z88.1 Allergy status to other antibiotic agents; Z79.899 Other long term (current) drug therapy; W10.8XXA Fall (on) (from) other stairs and steps, initial encounter; Y93.89 Activity, other specified; Y92.89 Other specified places as the place of occurrence of the external cause; Y99.8 Other external cause status

== ENCOUNTER 2019-07-26 20:18 | Inpatient (IN) | payer OTHER ==
[~2019-07-26] VITALS: Ht 162.5 cm; Wt 92.7 kg
--- NOTE | ~2019-07-26 | EKG ---
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
[~2019-07-26 20:18] MED LIST changes: +CEPHALEXIN500 M1 PO; +ZOFRAN4 MG PO
[2019-07-26 20:19] VITALS: BP 153/92
[2019-07-26 21:00] LABS: BASO # 0.1 10*3/uL (0.0-0.1); BASO % 0.6 % (0.0-1.0); EOS # 0.1 10*3/uL (0.0-0.4); EOS % 1.3 % (1.0-4.0); HEMATOCRIT 38.2 % (37.0-47.0); HEMOGLOBIN 12.4 g/dl (12.0-16.0); LYMPH # 3.7 10*3/uL (1.3-4.4); LYMPH % 44.3 % (27.0-41.0); MEAN CELL VOLUME 89.5 fl (81.0-99.0); MEAN CORPUSCULAR HGB CONC 32.5 g/dl (33.0-37.0); MEAN PLATELET VOLUME 9.8 fl (9.6-12.3); MONO # 0.7 10*3/uL (0.1-1.0); MONO % 7.8 % (3.0-9.0); NEUT # 3.9 10*3/uL (2.3-7.9); NEUT % 45.9 % (47.0-73.0); PLATELET COUNT AUTOMATED 190 10*3/uL (130-400); RED BLOOD COUNT 4.27 10*6/uL (4.10-5.10); RED CELL DISTRI WIDTH 14.9 % (0-14.5); WHITE BLOOD COUNT 8.4 10*3/uL (4.8-10.8)
[2019-07-26 21:14] LABS: ACT PARTIAL THROMBO TIME 28.5 SECONDS (20.0-32.1); INTERNATIONAL NORM RATIO 1.1 (2.0-3.5)
[2019-07-26 21:15] LABS: ALBUMIN 3.5 gm/dl (3.1-4.5); ALKALINE PHOSPHATASE 118 U/L (45-117); BUN 7 mg/dl (7-24); CHLORIDE 106 mmol/L (98-107); CREATININE 1.02 mg/dL (0.55-1.02); LIPASE 896 U/L (73-393); POTASSIUM 3.8 mmol/L (3.5-5.1); SGOT/AST 58 IU/L (3-35); SGPT/ALT 51 U/L (12-78); SODIUM 135 mmol/L (136-145); TOTAL PROTEIN 8.5 gm/dL (6.4-8.2)
[2019-07-26 21:18] LABS: TROPONIN I < 0.015 ng/ml (<0.045)
--- NOTE | 2019-07-26 21:21 | NUR ---
[place] 2.[address] DR POPE NOTIFIED
[2019-07-26 22:37] LABS: ACETAMINOPHEN (TYLENOL) < 5.0 ug/ml (10-30)
[2019-07-26 23:12] LABS: URINE AMPHETAMINES < 1000 (1000ng/ml); URINE BARBITURATES < 200 (200ng/ml); URINE BENZODIAZEPINES < 200 (200ng/ml); URINE CANNABINOIDS (THC) < 50 (50ng/ml); URINE COCAINE > 300 (300ng/ml); URINE METHADONE < 300 (300ng/ml); URINE OPIATES < 300 (300ng/ml)
[2019-07-26 23:18] LABS: URINE PHENCYCLIDINE < 25 (25ng/ml)
[2019-07-26 23:46] VITALS: BP 137/89
--- NOTE | 2019-07-26 23:46 | NUR ---
A 38 YEAR OLD FEMALE PATIENT, admitted to [facility], under the services of JOÃO Bhat DO with a diagnosis of PANCREATITIS. Chief complaint is C/O ALCOHOL WITHDRAWAL, ANXIOUS AND SWEATING, PATIENT FELT "LIKE SHE HAD PANCREATITIS AGAIN" Patient arrived via CART WITH RN from ER. Monitor applied. Initial assessment completed. Vital signs taken and recorded. See assessment for past medical history, medications and allergies. Patient and/or family oriented to unit. [facility] visitation policy reviewed. Clothing/patient valuable form completed. JENNY SINGLETON
[2019-07-27] MEDS ORDERED: BENZTROPINE MESY1 MG PO (00:23)
[2019-07-27] MEDS ORDERED: DISULFIRAM250 M1 PO (01:00)
[2019-07-27] MEDS ORDERED: DOXEPIN HCL50 MG PO (01:02)
[2019-07-27] MEDS ORDERED: SAPHRIS2.5 MG SL (01:02)
[2019-07-27] MEDS ORDERED: REXULTI2 MG PO (01:20)
[2019-07-27] MEDS ORDERED: Carafate1 GM PO (01:21)
[2019-07-27] MEDS ORDERED: ACAMPROSATE CA333 M1 PO (01:22)
--- NOTE | 2019-07-27 01:23 | NUR ---
MEDICATION RECONCILLIATION COMPLETED WITH PATIENT AT THE BEDSIDE WHILE USING THE MED CLAIM HISTORY
--- NOTE | 2019-07-27 01:28 | NUR ---
PATIENT MEDICATED WITH MORPHINE PER DRS ORDERS FOR COMPLAINTS OF SEVERE ABDOMINAL PAIN SPECIFICALLY IN THE RIGHT UPPER QUADRANT. PATIENT CURRENTLY IS RATING 8/10 RN WILL MONITOR FOR RELIEF OR DECREASE IN PAIN LEVEL.
[2019-07-27 04:00] VITALS: BP 156/92
--- NOTE | 2019-07-27 06:05 | NUR ---
MEDICATED WITH ATIVAN, PATIENT DISPLAYING TREMORS TO THE BILATERAL HANDS, PATIENT STATES SHE FEELS ANXIOUS AND CANNOT RELAS. RN WILL MONITOR FOR RELIEF OF SYMPTOMS
--- NOTE | 2019-07-27 07:58 | NUR ---
Lightly snoring, awakened for VS. Then quickly back to sleep.
[2019-07-27 08:00] VITALS: BP 125/67
--- NOTE | 2019-07-27 08:23 | NUR ---
MEDICATED WITH MORPHINE IV FOR ABDOMINAL PAIN ".
--- NOTE | 2019-07-27 09:22 | NUR ---
Pain med effective to reduce pain to 6/10 . Pt. states " it took the edge off".
--- NOTE | 2019-07-27 11:11 | NUR ---
To radiology for CT.
--- NOTE | 2019-07-27 11:50 | NUR ---
Returned from CT , states iv has a bubble on it. blanched area at site. Dc'd and re-started to AKASH. Medicated for anxiety and fine tremors. Lunch ordered. delivered and taking well.
[2019-07-27 12:00] VITALS: BP 149/98
--- NOTE | 2019-07-27 14:34 | NUR ---
Nutritional Support Services Note: Pt with Dx of pancreatitis, alcohol withdrawal, hx of depression, hep c and drug and alcohol abuse. She currently is on a full liquid diet, tolerating well. Ht.5'4 Wt.204#. IBW 120# Pt has protein calorie malnutrition noted. Recommend Glucerna OS po BID. Advance diet as tolerated. Pt is allergic to Walnuts. No other nutrition intervention is needed at this time. Will follow. Ghazal Rocha Rdn Ld
--- NOTE | 2019-07-27 15:48 | NUR ---
LORTAB BY MOUTH FOR ABDOMINAL PAIN "ABOUT A 7"/10. SHE'S EATING HER LUNCH. DR LEBLANC CALLED TO ASK HOW SHE WAS EATING AND PLANS TO ADVANCE HER DIET.
[2019-07-27 16:00] VITALS: BP 155/94
--- NOTE | 2019-07-27 16:47 | NUR ---
Eating regular diet for supper w/o c/o. pain med effective as evidenced by pt. taking regular diet w/o complication or pain complaint.
--- NOTE | 2019-07-27 17:04 | NUR ---
Antianxiety's and antiemetics given, softly snoring w/i minutes.
[2019-07-27 20:00] VITALS: BP 121/72
--- NOTE | 2019-07-27 20:44 | NUR ---
1920 HAD SMALL EMESIS MUCOUS. TOO EARLY FOR ZOFRAN. WILL MONITOR. 1929 RESTING IN BED WITH EYES CLOSED. APPEARS TO BE SLEEPING. IV FLUIDS CONT. 2019 VISTARIL GIVEN FOR ANXIETY AND MORCO PO FOR C/O'S ABD PAIN. WILL MONITOR.
--- NOTE | 2019-07-27 21:09 | NUR ---
EARLIER MEDS EFFECTIVE. RESTING IN BED WITH EYES CLOSED.
--- NOTE | 2019-07-27 22:18 | NUR ---
REQUESTING SOMETHING FOR ANXIETY. INFORMED PT THAT IS IS TOO EARLY.
[2019-07-28] VITALS: BP 114/78
--- NOTE | 2019-07-28 01:11 | NUR ---
MEDICATED WITH ROUTINE LIBRIUM AND ATIVAN IV AT 2330. PT RESTING IN BED WITH EYES CLOSED NOW. APPEARS TO BE SLEEPING.
--- NOTE | 2019-07-28 02:43 | NUR ---
0240 NORCO GIVEN FOR C/O'S ABD PAIN AND VISTARIL GIVEN FOR ANXIETY. WILL MONITOR.
[2019-07-28 04:00] VITALS: BP 128/64
--- NOTE | 2019-07-28 04:07 | NUR ---
EARLIER MEDS EFFECTIVE.
[2019-07-28 06:01] LABS: BUN 6 mg/dl (7-24); CHLORIDE 107 mmol/L (98-107); CHOLESTEROL 144 mg/dL (<200); CREATININE 0.86 mg/dL (0.55-1.02); LIPASE 650 U/L (73-393); PHOSPHOROUS 4.3 mg/dL (2.5-4.9); SGOT/AST 57 IU/L (3-35); SGPT/ALT 43 U/L (12-78); SODIUM 138 mmol/L (136-145); TRIGLYCERIDES 133 mg/dl (<150); VLDL CHOLESTEROL 27 mg/dL (6-40)
[2019-07-28 06:07] LABS: ALKALINE PHOSPHATASE 118 U/L (45-117); EOS # 0.2 10*3/uL (0.0-0.4); EOS % 3.9 % (1.0-4.0); HDL CHOLESTEROL 45 mg/dl (40-60); HEMATOCRIT 34.1 % (37.0-47.0); HEMOGLOBIN 10.9 g/dl (12.0-16.0); LDL CHOLESTEROL 72 mg/dL (9-159); LYMPH # 1.8 10*3/uL (1.3-4.4); LYMPH % 45.7 % (27.0-41.0); MEAN CELL VOLUME 89.5 fl (81.0-99.0); MEAN CORPUSCULAR HGB 28.6 pg (27.0-31.0); MEAN PLATELET VOLUME 9.7 fl (9.6-12.3); MONO # 0.5 10*3/uL (0.1-1.0); MONO % 11.6 % (3.0-9.0); NEUT # 1.5 10*3/uL (2.3-7.9); NEUT % 37.5 % (47.0-73.0); PLATELET COUNT AUTOMATED 150 10*3/uL (130-400); RED BLOOD COUNT 3.81 10*6/uL (4.10-5.10); RED CELL DISTRI WIDTH 14.8 % (0-14.5); TOTAL PROTEIN 7.3 gm/dL (6.4-8.2); WHITE BLOOD COUNT 3.9 10*3/uL (4.8-10.8)
--- NOTE | 2019-07-28 06:11 | NUR ---
0530 ROUTINE LIBRIUM GIVEN ORDERED AND ATIVAN IV GIVEN FOR TREMORS. 0610 EARLIER MEDS EFFECTIVE. RESTING IN BED WITH EYES CLOSED. APPEARS TO BE SLEEPING. IV FLUIDS CONT. NO DISTRESS NOTED. CONDITION GUARDED,
[2019-07-28 07:18] LABS: VITAMIN D, 25-HYDROXY 33.6 ng/mL (30-100)
--- NOTE | 2019-07-28 07:36 | NUR ---
PT MEDICATED WITH NORCO FOR C/O ABD PAIN RATED 6/10 ON PAIN SCALE.
[2019-07-28 08:00] VITALS: BP 144/90
--- NOTE | 2019-07-28 08:19 | NUR ---
PT MEDICATED WITH VISTARIL 50MG PO FOR C/O ANXIETY.
--- NOTE | 2019-07-28 09:31 | NUR ---
EMERGENCY MEDICINE PHYSICIAN ASSISTANT EVETTE MADE AWARE AT THIS TIME THAT PT HAS BEEN DOWNGRADED TO NONMONITORED PT.
--- NOTE | 2019-07-28 12:37 | NUR ---
Waiter/Waitress Buffet in to talk to patient. Patient states lives at with family. There are few steps in the home. Physician: [facility] Home health services: none Patient's level of ADLs: INDEPENDENT Patient has working utilities: all working DME: none Follow-up physician's appointment after d/c: will be made by hospitalist nurse director upon discharge Does patient want to access PORTAL?: no Discharge plan discussed with patient she lives at home with family, is independent in adls and ambulation, she states she will be returning home when able and denies any home needs. MACHELLE DIAZ
--- NOTE | 2019-07-28 13:00 | NUR ---
PT MEDICATED WITH NORCO FOR C/O ABD PAIN.
--- NOTE | 2019-07-28 13:07 | NUR ---
PT TRANSFERED TO ROOM 401-1 AT THIS TIME VIA WHEELCHAIR.
[2019-07-28 16:00] VITALS: BP 134/90
[2019-07-28 20:00] VITALS: BP 137/71
--- NOTE | 2019-07-28 23:36 | NUR ---
IN TO ASSESS PATIENT. PATIENT ALERT AND ORIENTED. PLEASANT. COOPERATIVE. BREATHING IS EASY AND REGULAR WITHOUT DISTRESS. FINE TREMORS NOTED. PATIENT STATED SHE HASN'T DRANK IN ABOUT 4 DAYS AND SHE DRINKS 4 LOKOS DAILY. NO COMPLAINTS OF ABDOMINAL PAIN/TENDERNESS. CALL LIGHT WITHIN REACH, WILL MONITOR
[2019-07-29] VITALS: BP 139/83
--- NOTE | 2019-07-29 01:18 | NUR ---
PRN VISTARIL GIVEN FOR PT COMPLAINTS OF ANXIETY AND PRN ATIVAN GIVEN FOR TREMORS NOTED. CALL LIGHT WITHIN REACH, WILL MONITOR
--- NOTE | 2019-07-29 01:25 | NUR ---
24 HR chart check completed.
[2019-07-29 08:00] VITALS: BP 137/87
--- NOTE | 2019-07-29 09:00 | NUR ---
case management visits with patient, patient has been ambulating in halls, states she will be returning home when able and denies any home needs
--- NOTE | 2019-07-29 09:00 | NUR ---
PATIENT APPROACHED DESK WITH HER CELL PHONE. PT'S DIESEL ELECTRICIAN WAS ON THE LINE AND NEEDED TO SPEAK TO THE NURSE TO VERIFY PATIENT'S WHERE ABOUTS AND WHY PATIENT WAS ADMITTED AND HOW WE WERE TREATING HER. PATIENT HANDED ME THE PHONE. I TOLD THE DIESEL ELECTRICIAN THAT THE PATIENT WAS HERE AND HER ADMITTING DIAGNOSIS AND HOW WE WERE TREATING HER. PATIENT INDICATED THAT I SHOULD HAVE OMITTED THAT THE PATIENT WAS BEING TREATED FOR ALCOHOL WITHDRAWAL. RELEASE OF INFORMATION WAS SIGNED BY PATIENT. PATIENT STATED THAT SHE WOULD HAVE TO GO TO [facility] NOW THAT THE DIESEL ELECTRICIAN WAS AWARE OF HER BEING TREATED FOR ALCOHOL WITHDRAWAL. SUICIDAL IDEATIONS WERE VOICE BY PATIENT. DR. LEBLANC NOTIFIED. DR. ABERNATHY AND DR. LEBLANC IN TO ROOM TO DISCUSS TREATMENT OPTIONS FOR SUICIDE. PT DENIES SUICIDAL IDEATIONS AT THIS TIME.
[2019-07-29 12:00] VITALS: BP 141/91
--- NOTE | 2019-07-29 12:49 | NUR ---
Discharge instructions reviewed with patient/family. Patient receptive and verbalizes understanding. Follow-up care arranged. Written instructions given to patient/family. CARRINGTON BERRY
== END 2019-07-29 12:49 | disposition home or self-care (01) | DRG 439 ==
LOC: ED 20:18 → EDHOLD 22:02 → ICCU 23:07 → EDHOLD 23:07 → 4E 23:07 → ICCU 23:18 → 4E 07-28 11:38
PROVIDERS: Internal Medicine; Student in an Organized Health Care Education/Training Program; ADMIT Internal Medicine
DX: K85.90 Acute pancreatitis without necrosis or infection, unspecified (principal); E87.2 Acidosis; E87.1 Hypo-osmolality and hyponatremia; E44.0 Moderate protein-calorie malnutrition; F14.221 Cocaine dependence with intoxication delirium; F10.239 Alcohol dependence with withdrawal, unspecified; E66.01 Morbid (severe) obesity due to excess calories; F41.1 Generalized anxiety disorder; B18.2 Chronic viral hepatitis C; R73.9 Hyperglycemia, unspecified; F17.210 Nicotine dependence, cigarettes, uncomplicated; F32.9 Major depressive disorder, single episode, unspecified; K21.9 Gastro-esophageal reflux disease without esophagitis; E78.5 Hyperlipidemia, unspecified; K76.0 Fatty (change of) liver, not elsewhere classified; Z68.35 Body mass index [BMI] 35.0-35.9, adult; Z71.6 Tobacco abuse counseling; Z80.8 Family history of malignant neoplasm of other organs or systems; Z80.42 Family history of malignant neoplasm of prostate; Z82.49 Family history of ischemic heart disease and other diseases of the circulatory system; Z82.5 Family history of asthma and other chronic lower respiratory diseases; Z82.0 Family history of epilepsy and other diseases of the nervous system; Z83.3 Family history of diabetes mellitus; Z81.3 Family history of other psychoactive substance abuse and dependence; Z88.1 Allergy status to other antibiotic agents; Z91.030 Bee allergy status; Z91.018 Allergy to other foods; Z79.899 Other long term (current) drug therapy

== ENCOUNTER 2019-08-08 01:24 | Emergency (ER) | payer OTHER ==
[~2019-08-08] VITALS: Ht 162.5 cm; Wt 90.7 kg
--- NOTE | ~2019-08-08 | EKG ---
[place], [place] ELECTROCARDIOGRAM REPORT NAME: ETHAN ESPINOZA UNIT #: [id number] ROOM: DOCTOR: EPIPHANY DRAFT REPORT BIRTHDATE: [birth year] [facility] Test Date: 2019-08-08 Test Time: 02:23:53 Pat Name: ETHAN ESPINOZA Department: ed Room: 3 Gender: F Cover Inspector: Libertad Reyez : 1980 Requested By: CARLOS SUÁREZ Order Number: [id number] Reading MD: Syd Cummings MD Measurements Intervals [place] Rate: 97 P: 57 IN: 147 QRS: 50 QRSD: 92 T: 24 QT: 395 QTc: 502 Interpretive Statements Sinus rhythm Borderline prolonged QT interval Compared to ECG 04/27/2019 19:27:11 No significant changes Electronically Signed On 08-08-2019 10:44:22 PDT by Syd Cummings MD CM:EKGRPT:ELECTROCARDIOGRAM REPORT [id number] CARLOS SUÁREZ MD EPIPHANY DRAFT REPORT CARLOS SUÁREZ MD
[~2019-08-08 01:24] MED LIST changes: +ACAMPROSATE CA333 M1 PO; +BENZTROPINE MESY1 MG PO; +Carafate1 GM PO; +DISULFIRAM250 M1 PO; +DOXEPIN HCL50 MG PO; +REXULTI2 MG PO; +SAPHRIS2.5 MG SL
[2019-08-08 02:04] LABS: BASO # 0.1 10*3/uL (0.0-0.1); BASO % 0.8 % (0.0-1.0); EOS # 0.1 10*3/uL (0.0-0.4); EOS % 1.4 % (1.0-4.0); HEMATOCRIT 31.2 % (37.0-47.0); HEMOGLOBIN 10.2 g/dl (12.0-16.0); LYMPH # 2.8 10*3/uL (1.3-4.4); MEAN CELL VOLUME 88.1 fl (81.0-99.0); MEAN CORPUSCULAR HGB 28.8 pg (27.0-31.0); MEAN CORPUSCULAR HGB CONC 32.7 g/dl (33.0-37.0); MEAN PLATELET VOLUME 9.6 fl (9.6-12.3); MONO # 0.5 10*3/uL (0.1-1.0); NEUT % 46.6 % (47.0-73.0); PLATELET COUNT AUTOMATED 185 10*3/uL (130-400); RED BLOOD COUNT 3.54 10*6/uL (4.10-5.10); WHITE BLOOD COUNT 6.5 10*3/uL (4.8-10.8)
[2019-08-08 02:14] LABS: INTERNATIONAL NORM RATIO 1.2 (2.0-3.5)
[2019-08-08 02:20] LABS: ACETAMINOPHEN (TYLENOL) 7.7 ug/ml (10-30); ALKALINE PHOSPHATASE 103 U/L (45-117); BUN 8 mg/dl (7-24); CHLORIDE 103 mmol/L (98-107); CREATININE 1.01 mg/dL (0.55-1.02); LIPASE 304 U/L (73-393); POTASSIUM 3.4 mmol/L (3.5-5.1); SGOT/AST 62 IU/L (3-35); SGPT/ALT 41 U/L (12-78); SODIUM 136 mmol/L (136-145); TOTAL PROTEIN 7.4 gm/dL (6.4-8.2)
[2019-08-08 02:21] LABS: BETA-HCG, QUANT < 1.0 mIU/mL (1-3); TROPONIN I < 0.015 ng/ml (<0.045)
[2019-08-08] MEDS ORDERED: DICYCLOMINE HCL20 MG PO (03:23)
== END 2019-08-08 03:42 | disposition home or self-care (01) ==
LOC: ED 01:24
PROVIDERS: Emergency Medicine Emergency Medical Services
DX: K29.70 Gastritis, unspecified, without bleeding (principal); R56.9 Unspecified convulsions; F10.239 Alcohol dependence with withdrawal, unspecified; F10.229 Alcohol dependence with intoxication, unspecified; K21.9 Gastro-esophageal reflux disease without esophagitis; E78.5 Hyperlipidemia, unspecified; E66.01 Morbid (severe) obesity due to excess calories; F17.210 Nicotine dependence, cigarettes, uncomplicated; Z91.030 Bee allergy status; Z88.1 Allergy status to other antibiotic agents; Z91.018 Allergy to other foods; Z79.899 Other long term (current) drug therapy; Y90.9 Presence of alcohol in blood, level not specified

== ENCOUNTER 2019-08-26 16:33 | Emergency (ER) | payer OTHER ==
[~2019-08-26] VITALS: Ht 162.5 cm; Wt 97.5 kg
[~2019-08-26 16:33] MED LIST changes: +DICYCLOMINE HCL20 MG PO
[2019-08-26 18:39] LABS: BASO % 0.9 % (0.0-1.0); EOS # 0.1 10*3/uL (0.0-0.4); EOS % 1.5 % (1.0-4.0); HEMATOCRIT 34.2 % (37.0-47.0); LYMPH # 2.1 10*3/uL (1.3-4.4); LYMPH % 46.4 % (27.0-41.0); MEAN CELL VOLUME 90.2 fl (81.0-99.0); MEAN CORPUSCULAR HGB CONC 32.2 g/dl (33.0-37.0); MEAN PLATELET VOLUME 9.5 fl (9.6-12.3); MONO # 0.7 10*3/uL (0.1-1.0); MONO % 14.8 % (3.0-9.0); NEUT # 1.7 10*3/uL (2.3-7.9); NEUT % 36.4 % (47.0-73.0); PLATELET COUNT AUTOMATED 143 10*3/uL (130-400); RED BLOOD COUNT 3.79 10*6/uL (4.10-5.10); RED CELL DISTRI WIDTH 17.1 % (0-14.5); WHITE BLOOD COUNT 4.6 10*3/uL (4.8-10.8)
[2019-08-26 18:55] LABS: ALBUMIN 3.1 gm/dl (3.1-4.5); ALKALINE PHOSPHATASE 125 U/L (45-117); BUN 4 mg/dl (7-24); CHLORIDE 105 mmol/L (98-107); CREATININE 0.85 mg/dL (0.55-1.02); POTASSIUM 3.6 mmol/L (3.5-5.1); SGOT/AST 118 IU/L (3-35); SGPT/ALT 54 U/L (12-78); SODIUM 137 mmol/L (136-145)
[2019-08-26 19:08] LABS: BILIRUBIN NEGATIVE (NEGATIVE); BLOOD NEGATIVE (NEGATIVE); CLARITY SL CLOUDY (CLEAR); COLOR YELLOW (YELLOW); GLUCOSE NEGATIVE (NEGATIVE); KETONE NEGATIVE (NEGATIVE); LEUKO ESTERASE NEGATIVE (NEGATIVE); NITRITE NEGATIVE (NEGATIVE); PH 7.5 (5.0-9.0)
[2019-08-26 19:30] LABS: BACTERIA TRACE; WBC 0-2 wbc/hpf (0-5)
[2019-08-26] MEDS ORDERED: ZOFRAN4 MG PO (20:03)
[2019-08-26] MEDS ORDERED: VIBRAMYCIN100 MG PO (20:03)
== END 2019-08-26 20:14 | disposition home or self-care (01) ==
LOC: ED 16:33
PROVIDERS: Physician Assistant
DX: J40 Bronchitis, not specified as acute or chronic (principal); R11.2 Nausea with vomiting, unspecified; R07.81 Pleurodynia; F17.200 Nicotine dependence, unspecified, uncomplicated; Z79.899 Other long term (current) drug therapy; Z91.030 Bee allergy status; Z88.1 Allergy status to other antibiotic agents; Z91.018 Allergy to other foods; W19.XXXA Unspecified fall, initial encounter; Y93.89 Activity, other specified; Y92.89 Other specified places as the place of occurrence of the external cause; Y99.8 Other external cause status

== ENCOUNTER 2019-09-19 15:55 | Emergency (ER) | payer OTHER ==
[~2019-09-19] VITALS: Ht 162.5 cm; Wt 95.3 kg
[2019-09-19 16:42] LABS: BASO # 0.1 10*3/uL (0.0-0.1); BASO % 0.7 % (0.0-1.0); EOS # 0.1 10*3/uL (0.0-0.4); EOS % 0.7 % (1.0-4.0); HEMATOCRIT 29.2 % (37.0-47.0); HEMOGLOBIN 10.3 g/dl (12.0-16.0); LYMPH % 28.6 % (27.0-41.0); MEAN CELL VOLUME 84.6 fl (81.0-99.0); MEAN CORPUSCULAR HGB 29.9 pg (27.0-31.0); MEAN CORPUSCULAR HGB CONC 35.3 g/dl (33.0-37.0); MONO # 0.7 10*3/uL (0.1-1.0); MONO % 9.7 % (3.0-9.0); NEUT # 4.2 10*3/uL (2.3-7.9); PLATELET COUNT AUTOMATED 191 10*3/uL (130-400); RED BLOOD COUNT 3.45 10*6/uL (4.10-5.10); RED CELL DISTRI WIDTH 19.7 % (0-14.5)
[2019-09-19 16:52] LABS: BILIRUBIN NEGATIVE (NEGATIVE); BLOOD NEGATIVE (NEGATIVE); CLARITY CLEAR (CLEAR); COLOR YELLOW (YELLOW); GLUCOSE NEGATIVE (NEGATIVE); KETONE NEGATIVE (NEGATIVE); LEUKO ESTERASE NEGATIVE (NEGATIVE); NITRITE NEGATIVE (NEGATIVE); PH 5.5 (5.0-9.0); UROBILINOGEN 0.2 E.U./dl (0.2-1.0)
[2019-09-19 16:53] LABS: ACT PARTIAL THROMBO TIME 30.1 SECONDS (20.0-32.1); INTERNATIONAL NORM RATIO 1.2 (2.0-3.5)
[2019-09-19 16:59] LABS: URINE AMPHETAMINES < 1000 (1000ng/ml); URINE BARBITURATES < 200 (200ng/ml); URINE BENZODIAZEPINES < 200 (200ng/ml); URINE CANNABINOIDS (THC) < 50 (50ng/ml); URINE COCAINE < 300 (300ng/ml); URINE METHADONE < 300 (300ng/ml); URINE OPIATES < 300 (300ng/ml)
[2019-09-19 17:01] LABS: URINE PHENCYCLIDINE < 25 (25ng/ml)
[2019-09-19 17:08] LABS: ALBUMIN 3.1 gm/dl (3.1-4.5); ALKALINE PHOSPHATASE 178 U/L (45-117); BUN 9 mg/dl (7-24); CHLORIDE 100 mmol/L (98-107); CREATININE 0.73 mg/dL (0.55-1.02); LIPASE 468 U/L (73-393); POTASSIUM 3.8 mmol/L (3.5-5.1); SGOT/AST 200 IU/L (3-35); SGPT/ALT 91 U/L (12-78); SODIUM 131 mmol/L (136-145); TOTAL PROTEIN 8.3 gm/dL (6.4-8.2)
[2019-09-19 17:12] LABS: RBC 0-2 rbc/hpf (0-2)
== END 2019-09-19 20:03 | disposition home or self-care (01) ==
LOC: ED 15:55
PROVIDERS: Physician Assistant
DX: F10.129 Alcohol abuse with intoxication, unspecified (principal); R21 Rash and other nonspecific skin eruption; R74.0 Nonspecific elevation of levels of transaminase and lactic acid dehydrogenase [LDH]; F17.200 Nicotine dependence, unspecified, uncomplicated; F14.10 Cocaine abuse, uncomplicated; F11.10 Opioid abuse, uncomplicated; Z91.030 Bee allergy status; Z88.1 Allergy status to other antibiotic agents; Z79.899 Other long term (current) drug therapy; Y90.6 Blood alcohol level of 120-199 mg/100 ml

== ENCOUNTER 2019-09-22 11:44 | Inpatient (IN) | payer OTHER ==
[~2019-09-22] VITALS: Ht 162.5 cm; Wt 98.0 kg
--- NOTE | ~2019-09-22 | CON ---
[place], [place] REPORT OF CONSULTATION NAME: ETHAN ESPINOZA UNIT #: [id number] ROOM: 406 DOCTOR: MEET FIGUEROA MD BIRTHDATE: [birth year] DOS: 09/23/2019 HISTORY OF PRESENT ILLNESS: This is a 38-year-old patient who has presented with aggressive alcohol consumption history. The last dose had been less than 48 hours ago. Blood alcohol level of 79 and pruritus scratch deluca and skin ulcerations in the spotty pattern of approximately 1 cm in each and multiple on the arms and legs. She appears to be icteric, she is distressed due to the fact that she knows that she has had hepatitis C and she has had heavy alcohol consumption large volume daily as well as her sister at age 36 with the same problem. The patient has history of recreational drug use with injection approximately 15 years ago, was the time that she injected throughout to herself. She is very energetic, very remorseful at this time. After a long discussion at the bedside regarding distress that she has induced on her liver with alcoholism. Her bilirubin was greater than 7. Liver function test, GOT, GPT, and alkaline phosphatase all elevated. White blood cell was 4, H and H of 10 and 29 with platelet count of 177. test has been negative. Her INR was 1.2. Lipase was elevated to greater than 500. Sonographic study of the liver. Fatty metamorphosis of the liver and no cholecystitis. CT scan of the abdomen has been reviewed, urine culture was reviewed. Records reassessed. PAST MEDICAL HISTORY: Associated with obesity, GERD, hepatitis C, major depression, Parkinsonism, seizure disorder, fatty liver, pancreatitis, all has been recognized. GERD is known with dyspepsia on PPI. PAST SURGICAL HISTORY: Excision of benign left leg mass, laparoscopy, nexplanon in place, and left arm repair. SOCIAL HISTORY: Aggressive alcohol consumption, seizure disorder, cocaine history, crack history. She tells me the last time she injected herself 15 years ago. Aggressive smoker. FAMILY HISTORY: Noncontributory. ALLERGIES: CLINDAMYCIN, ENVIRONMENTAL BEE STING, AND FOOD WALNUT ALLERGIES. MEDICATIONS: List has been reviewed. REVIEW OF SYSTEMS: HEENT: Denies double vision, blurred vision. RESPIRATORY: Denies acute shortness of breath. CARDIOVASCULAR: Denies acute chest pain. DIGESTIVE SYSTEM: As identified above. PHYSICAL EXAMINATION: GENERAL: Jaundiced patient. HEENT: Head normocephalic, nontraumatic. Mouth free of aphthae lesion. NECK: Supple, no thyromegaly. CHEST: Symmetric anatomy, equal expansion. No wheeze, no rhonchi. HEART: Normal sinus rhythm, no gallop, no murmur. ABDOMEN: Obese, large, soft. No hepato-organomegaly. Tender in right upper [place], [place] REPORT OF CONSULTATION NAME: ETHAN ESPINOZA UNIT #: [id number] ROOM: [facility] DOCTOR: HENRY ARIZA,[facility] BIRTHDATE: [birth year] quadrant. EXTREMITIES: Numerous scaling and ulcerations on the upper and lower extremities. NEUROLOGIC: Fully alert and oriented. No asterixis. No encephalopathy. Labs, reviewed. Records, reviewed. IMPRESSION: Alcoholic hepatitis, hepatitis C, history recreational drug user, nicotine dependency, alcohol intoxification at the time of admission. Other depression and anxiety. PLAN AND DISCUSSION: Extensive discussion with the patient at the bedside and it looks that at the end of my half an hour discussion with her and she was impressed with explanation that her liver is damage because of the alcohol and remorseful of what she has done so far to herself and the fact that her sister with the same pathology and was focused for her, which was similar history of her alcohol use and similarity of the huy was reviewed with her. I have advised her that after detox and recovery of acute intoxification is done to follow up with us so that we can reinforce abstinence from alcohol, nicotine, and drugs. As far as hepatitis C is concerned, we have to wait until her alcoholism is proven to be resolved, so that we can see if we can help her beyond that stage. Labs and records have been reviewed. At the present time, we will continue with IV hydration. I am going to feed her in the next day or two. Regular diet. I am going to add a therapeutic multivitamin into her diet today onward and follow up as outpatient. At the present time, she needs to stay in the hospital for the next couple of days at least for further recovery. Thank you very much indeed. The patient will follow up as an outpatient. MEET FIGUEROA MD CM:CONSTR:REPORT OF CONSULTATION [id number] SHARON JANSEN MIS.R
[2019-09-22 11:44] VITALS: BP 140/72
[2019-09-22 12:38] LABS: BASO # 0.1 10*3/uL (0.0-0.1); BASO % 1.6 % (0.0-1.0); EOS # 0.1 10*3/uL (0.0-0.4); EOS % 1.2 % (1.0-4.0); HEMATOCRIT 29.6 % (37.0-47.0); HEMOGLOBIN 10.1 g/dl (12.0-16.0); LYMPH # 1.8 10*3/uL (1.3-4.4); LYMPH % 37.4 % (27.0-41.0); MEAN CELL VOLUME 89.2 fl (81.0-99.0); MEAN CORPUSCULAR HGB 30.4 pg (27.0-31.0); MEAN CORPUSCULAR HGB CONC 34.1 g/dl (33.0-37.0); MEAN PLATELET VOLUME 11.6 fl (9.6-12.3); MONO # 0.4 10*3/uL (0.1-1.0); MONO % 7.8 % (3.0-9.0); NEUT # 2.5 10*3/uL (2.3-7.9); NEUT % 51.8 % (47.0-73.0); PLATELET COUNT AUTOMATED 177 10*3/uL (130-400); RED BLOOD COUNT 3.32 10*6/uL (4.10-5.10); RED CELL DISTRI WIDTH 19.3 % (0-14.5); WHITE BLOOD COUNT 4.9 10*3/uL (4.8-10.8)
[2019-09-22 12:38] LABS: BILIRUBIN 2+ (NEGATIVE); BLOOD NEGATIVE (NEGATIVE); CLARITY CLEAR (CLEAR); COLOR YELLOW (YELLOW); GLUCOSE NEGATIVE (NEGATIVE); KETONE NEGATIVE (NEGATIVE); LEUKO ESTERASE NEGATIVE (NEGATIVE); NITRITE NEGATIVE (NEGATIVE); SPECIFIC GRAVITY <= 1.005 (1.005-1.030)
[2019-09-22 12:49] LABS: URINE AMPHETAMINES < 1000 (1000ng/ml); URINE BARBITURATES < 200 (200ng/ml); URINE BENZODIAZEPINES < 200 (200ng/ml); URINE CANNABINOIDS (THC) < 50 (50ng/ml); URINE COCAINE < 300 (300ng/ml); URINE METHADONE < 300 (300ng/ml); URINE OPIATES < 300 (300ng/ml)
[2019-09-22 12:50] LABS: URINE PHENCYCLIDINE < 25 (25ng/ml)
[2019-09-22 12:56] LABS: ACT PARTIAL THROMBO TIME 28.3 SECONDS (20.0-32.1); INTERNATIONAL NORM RATIO 1.2 (2.0-3.5)
[2019-09-22 12:58] LABS: ALBUMIN 2.8 gm/dl (3.1-4.5); ALKALINE PHOSPHATASE 187 U/L (45-117); BUN 11 mg/dl (7-24); CHLORIDE 108 mmol/L (98-107); CREATININE 0.85 mg/dL (0.55-1.02); POTASSIUM 3.9 mmol/L (3.5-5.1); SGOT/AST 229 IU/L (3-35); SGPT/ALT 105 U/L (12-78); SODIUM 139 mmol/L (136-145); TOTAL PROTEIN 8.6 gm/dL (6.4-8.2)
[2019-09-22] MEDS ORDERED: HYDR100C PO (13:17)
[2019-09-22 14:00] VITALS: BP 135/79
[2019-09-22] MEDS ORDERED: HYDR25T PO (14:16)
[2019-09-22] MEDS ORDERED: SAPHRIS2.5 MG SL (14:17)
[2019-09-22] MEDS ORDERED: DOXEPIN50 MG PO (14:17)
[2019-09-22] MEDS ORDERED: ANTABUSE250 M1 PO (14:18)
[2019-09-22] MEDS ORDERED: VISTARIL50 MG PO (14:19)
[2019-09-22 16:00] VITALS: BP 151/98
[2019-09-22 20:00] VITALS: BP 166/88
[2019-09-23] VITALS: BP 133/63
[2019-09-23 08:00] VITALS: BP 168/88
[2019-09-23 08:02] LABS: BASO % 0.5 % (0.0-1.0); EOS # 0.1 10*3/uL (0.0-0.4); EOS % 2.1 % (1.0-4.0); HEMATOCRIT 30.1 % (37.0-47.0); HEMOGLOBIN 10.1 g/dl (12.0-16.0); LYMPH # 1.3 10*3/uL (1.3-4.4); LYMPH % 23.3 % (27.0-41.0); MEAN CELL VOLUME 90.9 fl (81.0-99.0); MEAN CORPUSCULAR HGB 30.5 pg (27.0-31.0); MEAN CORPUSCULAR HGB CONC 33.6 g/dl (33.0-37.0); MEAN PLATELET VOLUME 11.3 fl (9.6-12.3); MONO # 0.5 10*3/uL (0.1-1.0); MONO % 7.9 % (3.0-9.0); NEUT # 3.8 10*3/uL (2.3-7.9); PLATELET COUNT AUTOMATED 151 10*3/uL (130-400); RED BLOOD COUNT 3.31 10*6/uL (4.10-5.10); RED CELL DISTRI WIDTH 18.4 % (0-14.5); WHITE BLOOD COUNT 5.7 10*3/uL (4.8-10.8)
[2019-09-23 08:17] LABS: ALBUMIN 2.9 gm/dl (3.1-4.5); ALKALINE PHOSPHATASE 170 U/L (45-117); BUN 9 mg/dl (7-24); CHLORIDE 103 mmol/L (98-107); CREATININE 0.81 mg/dL (0.55-1.02); POTASSIUM 3.7 mmol/L (3.5-5.1); SGOT/AST 216 IU/L (3-35); SGPT/ALT 102 U/L (12-78); SODIUM 133 mmol/L (136-145); TOTAL PROTEIN 8.3 gm/dL (6.4-8.2)
[2019-09-23 12:00] VITALS: BP 158/76
[2019-09-23 16:00] VITALS: BP 127/71
[2019-09-23 20:00] VITALS: BP 156/84
[2019-09-24 06:06] LABS: ALBUMIN 2.9 gm/dl (3.1-4.5); ALKALINE PHOSPHATASE 163 U/L (45-117); BUN 12 mg/dl (7-24); CHLORIDE 102 mmol/L (98-107); CREATININE 0.82 mg/dL (0.55-1.02); POTASSIUM 3.7 mmol/L (3.5-5.1); SGOT/AST 194 IU/L (3-35); SGPT/ALT 101 U/L (12-78); SODIUM 134 mmol/L (136-145); TOTAL PROTEIN 8.5 gm/dL (6.4-8.2)
[2019-09-24 06:09] LABS: BASO % 0.7 % (0.0-1.0); EOS # 0.2 10*3/uL (0.0-0.4); EOS % 2.9 % (1.0-4.0); HEMATOCRIT 30.2 % (37.0-47.0); HEMOGLOBIN 10.1 g/dl (12.0-16.0); LYMPH # 1.2 10*3/uL (1.3-4.4); LYMPH % 21.9 % (27.0-41.0); MEAN CELL VOLUME 90.4 fl (81.0-99.0); MEAN CORPUSCULAR HGB 30.2 pg (27.0-31.0); MEAN CORPUSCULAR HGB CONC 33.4 g/dl (33.0-37.0); MONO # 0.5 10*3/uL (0.1-1.0); MONO % 8.4 % (3.0-9.0); NEUT # 3.6 10*3/uL (2.3-7.9); NEUT % 65.9 % (47.0-73.0); NUCLEATED RED BLOOD CELL 0.5 % (0.0-0.0); PLATELET COUNT AUTOMATED 154 10*3/uL (130-400); RED BLOOD COUNT 3.34 10*6/uL (4.10-5.10); RED CELL DISTRI WIDTH 17.7 % (0-14.5); WHITE BLOOD COUNT 5.5 10*3/uL (4.8-10.8)
[2019-09-24 08:00] VITALS: BP 116/78
[2019-09-24 12:00] VITALS: BP 132/72
[2019-09-24 16:00] VITALS: BP 122/88
[2019-09-24 20:00] VITALS: BP 126/71
[2019-09-25] VITALS: BP 112/63
[2019-09-25 06:53] LABS: ALBUMIN 2.9 gm/dl (3.1-4.5); ALKALINE PHOSPHATASE 170 U/L (45-117); BUN 13 mg/dl (7-24); CHLORIDE 103 mmol/L (98-107); CREATININE 0.91 mg/dL (0.55-1.02); POTASSIUM 4.1 mmol/L (3.5-5.1); SGOT/AST 185 IU/L (3-35); SGPT/ALT 113 U/L (12-78); SODIUM 133 mmol/L (136-145); TOTAL PROTEIN 8.6 gm/dL (6.4-8.2)
[2019-09-25 08:00] VITALS: BP 128/68
[2019-09-25 12:00] VITALS: BP 126/83
[2019-09-25 16:00] VITALS: BP 134/77
[2019-09-25 20:00] VITALS: BP 138/71
[2019-09-26] VITALS: BP 102/54
[2019-09-26 06:55] LABS: BASO % 0.5 % (0.0-1.0); EOS # 0.2 10*3/uL (0.0-0.4); EOS % 3.9 % (1.0-4.0); HEMATOCRIT 30.9 % (37.0-47.0); LYMPH # 1.7 10*3/uL (1.3-4.4); MEAN CELL VOLUME 93.1 fl (81.0-99.0); MEAN CORPUSCULAR HGB 30.1 pg (27.0-31.0); MEAN CORPUSCULAR HGB CONC 32.4 g/dl (33.0-37.0); MEAN PLATELET VOLUME 11.5 fl (9.6-12.3); MONO # 0.5 10*3/uL (0.1-1.0); MONO % 8.4 % (3.0-9.0); NEUT # 3.4 10*3/uL (2.3-7.9); NEUT % 57.9 % (47.0-73.0); NUCLEATED RED BLOOD CELL 0.3 % (0.0-0.0); PLATELET COUNT AUTOMATED 162 10*3/uL (130-400); RED BLOOD COUNT 3.32 10*6/uL (4.10-5.10); RED CELL DISTRI WIDTH 18.3 % (0-14.5); WHITE BLOOD COUNT 5.9 10*3/uL (4.8-10.8)
[2019-09-26 07:23] LABS: ALBUMIN 2.8 gm/dl (3.1-4.5); ALKALINE PHOSPHATASE 172 U/L (45-117); BUN 13 mg/dl (7-24); CHLORIDE 103 mmol/L (98-107); LIPASE 226 U/L (73-393); POTASSIUM 4.1 mmol/L (3.5-5.1); SGOT/AST 188 IU/L (3-35); SGPT/ALT 120 U/L (12-78); SODIUM 135 mmol/L (136-145); TOTAL PROTEIN 7.9 gm/dL (6.4-8.2)
[2019-09-26 08:00] VITALS: BP 122/77; BP 130/80
[2019-09-26 12:00] VITALS: BP 118/78
[2019-09-26 16:00] VITALS: BP 118/72
[2019-09-26 20:00] VITALS: BP 143/73
[2019-09-27] VITALS: BP 114/52
[2019-09-27 03:45] VITALS: BP 123/80
[2019-09-27 07:32] LABS: ALBUMIN 2.6 gm/dl (3.1-4.5); BILIRUBIN, DIRECT 3.3 mg/dL (0.0-0.2); TOTAL PROTEIN 7.6 gm/dL (6.4-8.2)
[2019-09-27] MEDS ORDERED: NATURE'S BLEND F1 MG PO (09:16)
[2019-09-27] MEDS ORDERED: ATIVAN1 MG PO (09:17)
[2019-09-27] MEDS ORDERED: VITAMIN B-1100 M1 PO (09:17)
[2019-09-27] MEDS ORDERED: THERA TABLET400 MCG PO (09:17)
[2019-09-27] MEDS ORDERED: THERA M PLUS T1 EACH PO (09:17)
== END 2019-09-27 10:14 | disposition home or self-care (01) | DRG 282 ==
LOC: ED 11:44 → EDHOLD 13:08 → 4E 13:08
PROVIDERS: Emergency Medicine; Family Medicine; Hospitalist; Internal Medicine; Registered Nurse; ADMIT Internal Medicine
DX: K85.20 Alcohol induced acute pancreatitis without necrosis or infection (principal); K70.10 Alcoholic hepatitis without ascites; B18.2 Chronic viral hepatitis C; E43 Unspecified severe protein-calorie malnutrition; E66.01 Morbid (severe) obesity due to excess calories; F17.210 Nicotine dependence, cigarettes, uncomplicated; D64.9 Anemia, unspecified; E87.8 Other disorders of electrolyte and fluid balance, not elsewhere classified; R73.9 Hyperglycemia, unspecified; F10.220 Alcohol dependence with intoxication, uncomplicated; R74.0 Nonspecific elevation of levels of transaminase and lactic acid dehydrogenase [LDH]; F41.1 Generalized anxiety disorder; F32.9 Major depressive disorder, single episode, unspecified; I10 Essential (primary) hypertension; K86.1 Other chronic pancreatitis; E78.5 Hyperlipidemia, unspecified; L29.9 Pruritus, unspecified; K21.9 Gastro-esophageal reflux disease without esophagitis; G20 Parkinson's disease; Z71.6 Tobacco abuse counseling; Z88.1 Allergy status to other antibiotic agents; Z91.030 Bee allergy status; Z91.018 Allergy to other foods; Z91.81 History of falling; Z80.8 Family history of malignant neoplasm of other organs or systems; Z83.3 Family history of diabetes mellitus; Z82.5 Family history of asthma and other chronic lower respiratory diseases; Z82.49 Family history of ischemic heart disease and other diseases of the circulatory system; Z80.42 Family history of malignant neoplasm of prostate; Z81.3 Family history of other psychoactive substance abuse and dependence; Z79.899 Other long term (current) drug therapy; Z71.41 Alcohol abuse counseling and surveillance of alcoholic; Z68.37 Body mass index [BMI] 37.0-37.9, adult

== ENCOUNTER 2019-10-30 08:39 | Emergency (ER) | payer OTHER ==
[~2019-10-30] VITALS: Ht 162.5 cm; Wt 103.0 kg
[~2019-10-30 08:39] MED LIST changes: +ANTABUSE250 M1 PO; +ATIVAN1 MG PO; +DOXEPIN50 MG PO; +HYDR100C PO; +HYDR25T PO; +NATURE'S BLEND F1 MG PO; +THERA M PLUS T1 EACH PO; +THERA TABLET400 MCG PO; +VITAMIN B-1100 M1 PO
== END 2019-10-30 09:43 | disposition home or self-care (01) ==
LOC: ED 08:39
DX: R07.89 Other chest pain (principal); M54.5 Low back pain; R11.10 Vomiting, unspecified; R05 Cough; E66.01 Morbid (severe) obesity due to excess calories; E78.5 Hyperlipidemia, unspecified; K21.9 Gastro-esophageal reflux disease without esophagitis; F17.210 Nicotine dependence, cigarettes, uncomplicated; Z91.018 Allergy to other foods; Z91.030 Bee allergy status; Z88.1 Allergy status to other antibiotic agents; Z79.899 Other long term (current) drug therapy

== ENCOUNTER 2019-11-13 09:44 | Emergency (ER) | payer OTHER ==
[~2019-11-13] VITALS: Ht 162.5 cm; Wt 99.8 kg
[2019-11-13 10:32] LABS: BASO # 0.1 10*3/uL (0.0-0.1); BASO % 1.3 % (0.0-1.0); EOS # 0.1 10*3/uL (0.0-0.4); HEMATOCRIT 34.4 % (37.0-47.0); HEMOGLOBIN 11.1 g/dl (12.0-16.0); LYMPH # 1.3 10*3/uL (1.3-4.4); LYMPH % 31.5 % (27.0-41.0); MEAN CELL VOLUME 94.8 fl (81.0-99.0); MEAN CORPUSCULAR HGB 30.6 pg (27.0-31.0); MEAN CORPUSCULAR HGB CONC 32.3 g/dl (33.0-37.0); MEAN PLATELET VOLUME 10.2 fl (9.6-12.3); MONO # 0.8 10*3/uL (0.1-1.0); MONO % 19.1 % (3.0-9.0); NEUT # 1.8 10*3/uL (2.3-7.9); NEUT % 45.8 % (47.0-73.0); PLATELET COUNT AUTOMATED 138 10*3/uL (130-400); RED BLOOD COUNT 3.63 10*6/uL (4.10-5.10)
[2019-11-13 10:32] LABS: BILIRUBIN NEGATIVE (NEGATIVE); BLOOD TRACE-LYSED (NEGATIVE); CLARITY CLEAR (CLEAR); COLOR YELLOW (YELLOW); GLUCOSE NEGATIVE (NEGATIVE); KETONE NEGATIVE (NEGATIVE); LEUKO ESTERASE NEGATIVE (NEGATIVE); NITRITE NEGATIVE (NEGATIVE); SPECIFIC GRAVITY <= 1.005 (1.005-1.030); UROBILINOGEN 0.2 E.U./dl (0.2-1.0)
[2019-11-13 10:42] LABS: URINE AMPHETAMINES < 1000 (1000ng/ml); URINE BARBITURATES < 200 (200ng/ml); URINE BENZODIAZEPINES < 200 (200ng/ml); URINE CANNABINOIDS (THC) < 50 (50ng/ml); URINE COCAINE < 300 (300ng/ml); URINE METHADONE < 300 (300ng/ml); URINE OPIATES < 300 (300ng/ml)
[2019-11-13 10:45] LABS: ALBUMIN 3.1 gm/dl (3.1-4.5); ALKALINE PHOSPHATASE 158 U/L (45-117); BUN 6 mg/dl (7-24); CHLORIDE 101 mmol/L (98-107); CREATININE 0.82 mg/dL (0.55-1.02); POTASSIUM 3.8 mmol/L (3.5-5.1); SGOT/AST 125 IU/L (3-35); SGPT/ALT 61 U/L (12-78); SODIUM 133 mmol/L (136-145); TOTAL PROTEIN 8.7 gm/dL (6.4-8.2)
[2019-11-13 10:47] LABS: ACT PARTIAL THROMBO TIME 30.2 SECONDS (20.0-32.1); INTERNATIONAL NORM RATIO 1.2 (2.0-3.5)
[2019-11-13 10:49] LABS: EPITHELIAL CELLS 0-2; WBC 0-2 wbc/hpf (0-5)
[2019-11-13 10:50] LABS: URINE PHENCYCLIDINE < 25 (25ng/ml)
[2019-11-13 11:05] LABS: TROPONIN I < 0.015 ng/ml (<0.045)
== END 2019-11-13 12:18 | disposition left against medical advice (07) ==
LOC: ED 09:44
PROVIDERS: Emergency Medicine
DX: R56.9 Unspecified convulsions (principal); F10.129 Alcohol abuse with intoxication, unspecified; S40.022A Contusion of left upper arm, initial encounter; S40.021A Contusion of right upper arm, initial encounter; K21.9 Gastro-esophageal reflux disease without esophagitis; E78.5 Hyperlipidemia, unspecified; E66.01 Morbid (severe) obesity due to excess calories; F14.10 Cocaine abuse, uncomplicated; F11.10 Opioid abuse, uncomplicated; F17.210 Nicotine dependence, cigarettes, uncomplicated; Z91.030 Bee allergy status; Z88.1 Allergy status to other antibiotic agents; Z91.018 Allergy to other foods; Z79.899 Other long term (current) drug therapy; X58.XXXA Exposure to other specified factors, initial encounter; Y93.89 Activity, other specified; Y92.89 Other specified places as the place of occurrence of the external cause; Y99.8 Other external cause status; Y90.8 Blood alcohol level of 240 mg/100 ml or more

== ENCOUNTER 2019-11-16 11:54 | Inpatient (IN) | payer OTHER ==
[~2019-11-16] VITALS: Ht 162.5 cm; Wt 105.8 kg
--- NOTE | 2019-11-16 13:15 | NUR ---
39 year old female admitted to room # 416-2 for stabilization. Reports an addiction to alcohol last used 4 hours prior to admission. Compliant with admission procedure. Patient c/o headache,light sensitivity,shaky,sweaty See assessment forms for additional information about patient status.
[2019-11-16 13:40] VITALS: BP 168/98
--- NOTE | 2019-11-16 13:45 | NUR ---
PATIENT MEETS [facility]. CIWA=28, CIWA(B)=37. PATIENT IS WANTING TO FOLLOW UP WITH [facility] IN [place] FOR OUTPATIENT TREATMENT. ARNOLD ALCAZAR B.A. DRUG SAFETY COORDINATOR
--- NOTE | 2019-11-16 14:29 | NUR ---
PATIENT COVERED IN HEALING SCABS HEAD TO TOE. 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
[2019-11-16 15:22] LABS: BILIRUBIN NEGATIVE (NEGATIVE); BLOOD NEGATIVE (NEGATIVE); CLARITY CLEAR (CLEAR); COLOR YELLOW (YELLOW); GLUCOSE NEGATIVE (NEGATIVE); KETONE NEGATIVE (NEGATIVE); LEUKO ESTERASE NEGATIVE (NEGATIVE); NITRITE NEGATIVE (NEGATIVE); SPECIFIC GRAVITY <= 1.005 (1.005-1.030); UROBILINOGEN 0.2 E.U./dl (0.2-1.0)
[2019-11-16 15:23] LABS: BASO # 0.1 10*3/uL (0.0-0.1); BASO % 1.1 % (0.0-1.0); EOS # 0.1 10*3/uL (0.0-0.4); EOS % 2.6 % (1.0-4.0); HEMATOCRIT 32.9 % (37.0-47.0); HEMOGLOBIN 11.1 g/dl (12.0-16.0); LYMPH # 1.6 10*3/uL (1.3-4.4); LYMPH % 34.7 % (27.0-41.0); MEAN CELL VOLUME 90.6 fl (81.0-99.0); MEAN CORPUSCULAR HGB 30.6 pg (27.0-31.0); MEAN CORPUSCULAR HGB CONC 33.7 g/dl (33.0-37.0); MEAN PLATELET VOLUME 10.8 fl (9.6-12.3); MONO # 0.6 10*3/uL (0.1-1.0); MONO % 13.6 % (3.0-9.0); NEUT # 2.2 10*3/uL (2.3-7.9); NEUT % 47.8 % (47.0-73.0); PLATELET COUNT AUTOMATED 120 10*3/uL (130-400); RED BLOOD COUNT 3.63 10*6/uL (4.10-5.10); RED CELL DISTRI WIDTH 14.6 % (0-14.5); WHITE BLOOD COUNT 4.6 10*3/uL (4.8-10.8)
--- NOTE | 2019-11-16 15:26 | NUR ---
MEDICATED WITH ATIVAN AND ZOFRAN PER ORDERS AND MULTIPLE REQUESTS.
[2019-11-16 15:31] LABS: INTERNATIONAL NORM RATIO 1.2 (2.0-3.5)
[2019-11-16 15:38] LABS: ALBUMIN 3.3 gm/dl (3.1-4.5); ALKALINE PHOSPHATASE 169 U/L (45-117); BUN 6 mg/dl (7-24); CHLORIDE 93 mmol/L (98-107); CREATININE 0.83 mg/dL (0.55-1.02); LIPASE 234 U/L (73-393); SGOT/AST 165 IU/L (3-35); SGPT/ALT 71 U/L (12-78); SODIUM 127 mmol/L (136-145); TOTAL PROTEIN 9.1 gm/dL (6.4-8.2)
[2019-11-16 15:40] LABS: URINE AMPHETAMINES < 1000 (1000ng/ml); URINE BARBITURATES < 200 (200ng/ml); URINE BENZODIAZEPINES < 200 (200ng/ml); URINE CANNABINOIDS (THC) < 50 (50ng/ml); URINE COCAINE < 300 (300ng/ml); URINE METHADONE < 300 (300ng/ml); URINE OPIATES < 300 (300ng/ml)
[2019-11-16 15:46] LABS: BETA-HCG, QUANT < 1.0 mIU/mL (1-3)
[2019-11-16 15:46] LABS: URINE PHENCYCLIDINE < 25 (25ng/ml)
[2019-11-16 15:50] LABS: EPITHELIAL CELLS 50-100
[2019-11-16 15:51] LABS: BACTERIA TRACE
[2019-11-16 16:00] VITALS: BP 169/100
--- NOTE | 2019-11-16 18:58 | NUR ---
MEDICATED WITH MOTRIN AND TESSALON [place] PER ORDERS.
[2019-11-16 20:00] VITALS: BP 131/89
--- NOTE | 2019-11-16 21:59 | NUR ---
PRN TYLENOL, TRAZADONE AND IV ATIVAN GIVEN FOR PT COMPLAINTS OF TREMORS, PAIN IN THE RIBS FROM COUGHING AND SLEEPLESSNESS. CALL LIGHT WITHIN REACH, WILL MONITOR
--- NOTE | 2019-11-16 23:00 | NUR ---
PRN MEDICATION APPEARS EFFECTIVE, PT SLEEPING
[2019-11-17] VITALS: BP 128/90
--- NOTE | 2019-11-17 01:36 | NUR ---
24 HR chart check completed.
--- NOTE | 2019-11-17 02:00 | NUR ---
PRN VISTARIL, TYLENOL, AND ROBAXIN GIVEN FOR PT COMPLAINTS OF ANXIETY, PAIN IN THE RIBS FROM COUGHING AND MUSCLE ACHES. CALL LIGHT WITHIN REACH, WILL MONITOR
--- NOTE | 2019-11-17 07:45 | NUR ---
PT REQUESTING IV ATIVAN FOR ANXIETY. PT ALSO REQUESTING SOMETHING TO HELP HER BREATHE BETTER. DR ESPANA NOTIFIED AND STATES THAT SHE WILL BE UP TO SEE PATIENT AFTER HER MORNING MEETING. PT HAS NO S/S OF DISTRESS AT THIS TIME. RESPIRATIONS ARE UNLABORED. WILL MEDICATE WITH ATIVAN PER EMAR PRN ORDERS.
[2019-11-17 09:28] VITALS: BP 140/72
--- NOTE | 2019-11-17 09:45 | NUR ---
PT GIVEN ZOFRAN AT THIS TIME FOR C/O NAUSEA. WILL MONITOR FOR EFFECTIVENESS. CALL LIGHT IN REACH.
--- NOTE | 2019-11-17 09:45 | NUR ---
PT STATES THAT ZOFRAN HELPED A LITTLE.
[2019-11-17 12:00] VITALS: BP 146/90
--- NOTE | 2019-11-17 14:00 | NUR ---
PT STATES THAT IV SITE TO LEFT HAND FEELS LIKE IT IS OUT. WILL ASSESS PT SITE AND ATTEMPT FOR A NEW SITE.
--- NOTE | 2019-11-17 15:13 | NUR ---
PATIENT IS STILL GOING TO FOLLOW UP WITH THE [facility] [place]. [place] STAFF WILL PROVIDE PATIENT WITH APPOINTMENT DATE AND TIME. [facility] STAFF WILL FOLLOW UP WITH PATIENT. ARNOLD ALCAZAR B.A. AIRCONDITIONING DRAFTING OFFICER
[2019-11-17 16:00] VITALS: BP 155/99
--- NOTE | 2019-11-17 16:15 | NUR ---
PT IN BED, SLEEPING AT THIS TIME. NO S/S OF DISTRESS. RESPIRATIONS EASY AND UNLABORED ON ROOM AIR. WILL CONTINUE TO MONITOR. SAFETY MEASURES IN PLACE. CALL LIGHT IN REACH.
[2019-11-17 20:00] VITALS: BP 159/82
--- NOTE | 2019-11-17 21:29 | NUR ---
IV ATIVAN GIVEN PER PRN ORDER AND PATIENT REQUEST FOR C/O ANXIETY AND TREMORS. SEE EMAR. REINFORCED USE OF CALL LIGHT.
[2019-11-18] VITALS: BP 139/89
[2019-11-18 06:51] LABS: BUN 8 mg/dl (7-24); CHLORIDE 104 mmol/L (98-107); CREATININE 0.97 mg/dL (0.55-1.02); POTASSIUM 4.4 mmol/L (3.5-5.1); SODIUM 134 mmol/L (136-145)
--- NOTE | 2019-11-18 07:10 | NUR ---
PT REFUSED SATX
[2019-11-18 08:00] VITALS: BP 141/84; BP 152/80
--- NOTE | 2019-11-18 09:43 | NUR ---
PT GIVEN IV ZOFRAN AT THIS TIME FOR C/O NAUSEA. WILL MONITOR FOR EFFECTIVENESS. CALL LIGHT IN REACH.
--- NOTE | 2019-11-18 10:25 | NUR ---
PT MEDICATED WITH ATIVAN IV PER PRN ORDER, SEE EMAR. FOR ANXIETY PER PT REQUEST. CALL LIGHT IN REACH.
--- NOTE | 2019-11-18 10:43 | NUR ---
ZOFRAN EFFECTIVE PER PT.
--- NOTE | 2019-11-18 11:25 | NUR ---
IV ATIVAN APPEARS EFFECTIVE AT THIS TIME. PT IS RESTING IN BED, SLEEPING. RESPIRATIONS ARE EASY AND UNLABORED ON ROOM AIR. WILL CONTINUE TO MONITOR. CALL LIGHT IN REACH.
[2019-11-18 12:00] VITALS: BP 152/92
--- NOTE | 2019-11-18 12:36 | NUR ---
PATIENT HAS A SCHEDULED APPOINTMENT WITH [facility] ON November AT 2PM. PATIENT AGREES AND UNDERSTANDS HER AFTERCARE PLAN. ARNOLD ALCAZAR B.A. FINANCIAL SERVICES CONSULTANT
--- NOTE | 2019-11-18 13:23 | NUR ---
PT GIVEN PO ZOFRAN, IV ATIVAN 1 MG, AND MOTRIN AT THIS TIME FOR C/O NAUSEA, ANXIETY, AND MUSCLE PAINS. WILL MONITOR FOR EFFECTIVENESS.
--- NOTE | 2019-11-18 14:23 | NUR ---
ZOFRAN, ATIVAN, AND MOTRIN EFFECTIVE PER PT.
[2019-11-18 16:00] VITALS: BP 128/73
[2019-11-18 20:00] VITALS: BP 142/91
--- NOTE | 2019-11-18 20:57 | NUR ---
PT. REFUSED AEROSOL TREATMENT
[2019-11-19] VITALS: BP 136/82
--- NOTE | 2019-11-19 01:17 | NUR ---
PATIENT MEDICATED WITH IV ATIVAN 1 MG, ROBAXIN AND ZOFRAN 4 MG PO PER PRN ORDER AND PATIENT REQUEST FOR S/S OF WITHDRAWAL. SEE EMAR. REINFORCED USE OF CALL LIGHT.
--- NOTE | 2019-11-19 01:31 | NUR ---
PATIENT MEDICATED WITH TRAZODONE PER PATIENT REQUEST AND PRN ORDER FOR INABILITY TO SLEEP. SEE EMAR. REINFORCED USE OF CALL LIGHT.
--- NOTE | 2019-11-19 03:07 | NUR ---
24 HR chart check completed.
--- NOTE | 2019-11-19 03:42 | NUR ---
PATIENT SLEEPING . NO S/S OF DISTRESS NOTED
--- NOTE | 2019-11-19 06:15 | NUR ---
PATIENT MEDICATED WITH ATIVAN IV PER PATIENT REQUEST FOR C/O ANXIETY. OFFERED PATIENT PO ATIVAN. PATIENT REFUSED STATING SHE WANTED IV FORM OF ATIVAN.
--- NOTE | 2019-11-19 07:30 | NUR ---
TOOK OVER CARE OF PT AT THIS TIME. PT RESTING IN BED. NO S/S OF DISTRESS. RESPIRATIONS EASY AND UNLABORED ON ROOM AIR. SAFETY MEASURES IN PLACE. CALL LIGHT IN REACH.
[2019-11-19 07:44] LABS: BASO % 0.9 % (0.0-1.0); EOS # 0.2 10*3/uL (0.0-0.4); EOS % 4.2 % (1.0-4.0); HEMATOCRIT 34.5 % (37.0-47.0); HEMOGLOBIN 11.1 g/dl (12.0-16.0); LYMPH # 1.3 10*3/uL (1.3-4.4); LYMPH % 28.2 % (27.0-41.0); MEAN CELL VOLUME 94.3 fl (81.0-99.0); MEAN CORPUSCULAR HGB 30.3 pg (27.0-31.0); MEAN CORPUSCULAR HGB CONC 32.2 g/dl (33.0-37.0); MEAN PLATELET VOLUME 11.5 fl (9.6-12.3); MONO # 0.4 10*3/uL (0.1-1.0); MONO % 9.5 % (3.0-9.0); NEUT # 2.6 10*3/uL (2.3-7.9); NEUT % 56.8 % (47.0-73.0); PLATELET COUNT AUTOMATED 129 10*3/uL (130-400); RED BLOOD COUNT 3.66 10*6/uL (4.10-5.10); RED CELL DISTRI WIDTH 15.2 % (0-14.5); WHITE BLOOD COUNT 4.5 10*3/uL (4.8-10.8)
[2019-11-19 08:00] VITALS: BP 159/114
[2019-11-19] MEDS ORDERED: MUCINEX ER600 MG PO (09:33)
[2019-11-19] MEDS ORDERED: METHOCARBAMOL750 M1 PO (09:33)
[2019-11-19] MEDS ORDERED: CHLORDIAZEPOXID25 M1 PO (09:33)
[2019-11-19] MEDS ORDERED: AMOXICILLIN500 M2 PO (09:33)
[2019-11-19] MEDS ORDERED: ZOFRAN4 MG PO (09:33)
--- NOTE | 2019-11-19 09:42 | NUR ---
PT GIVEN ROBAXIN, VISTARIL, AND ZOFRAN FOR C/O MUSCLE ACHES, ANXIETY, AND NAUSEA. WILL MONITOR FOR EFFECTIVENESS. CALL LIGHT IN REACH. ALL OTHER AM MEDICATIONS GIVEN AT THIS TIME.
--- NOTE | 2019-11-19 10:42 | NUR ---
PRN MEDICATIONS EFFECTIVE PER PT.
--- NOTE | 2019-11-19 11:22 | NUR ---
Discharge instructions reviewed with patient/family. Patient receptive and verbalizes understanding. Follow-up care arranged. Written instructions given to patient/family. LANA COREAS
== END 2019-11-19 11:22 | disposition home or self-care (01) | DRG 775 ==
LOC: 4E 11:54
PROVIDERS: ADMIT Internal Medicine
DX: F13.239 Sedative, hypnotic or anxiolytic dependence with withdrawal, unspecified (principal); J01.90 Acute sinusitis, unspecified; F17.210 Nicotine dependence, cigarettes, uncomplicated; B18.2 Chronic viral hepatitis C; F10.10 Alcohol abuse, uncomplicated; E78.5 Hyperlipidemia, unspecified; K21.9 Gastro-esophageal reflux disease without esophagitis; N80.9 Endometriosis, unspecified; K86.1 Other chronic pancreatitis; F41.1 Generalized anxiety disorder; F32.9 Major depressive disorder, single episode, unspecified; I10 Essential (primary) hypertension; E87.1 Hypo-osmolality and hyponatremia; D61.818 Other pancytopenia; R74.0 Nonspecific elevation of levels of transaminase and lactic acid dehydrogenase [LDH]; Z71.6 Tobacco abuse counseling; Z80.8 Family history of malignant neoplasm of other organs or systems; Z81.3 Family history of other psychoactive substance abuse and dependence; Z80.42 Family history of malignant neoplasm of prostate; Z82.5 Family history of asthma and other chronic lower respiratory diseases; Z83.3 Family history of diabetes mellitus; Z82.49 Family history of ischemic heart disease and other diseases of the circulatory system; Z82.0 Family history of epilepsy and other diseases of the nervous system; Z88.1 Allergy status to other antibiotic agents; Z91.030 Bee allergy status; Z91.018 Allergy to other foods; Z79.899 Other long term (current) drug therapy

== ENCOUNTER 2019-12-07 16:37 | Inpatient (IN) | payer OTHER ==
[~2019-12-07] VITALS: Ht 162.5 cm; Wt 103.0 kg
[~2019-12-07 16:37] MED LIST changes: +AMOXICILLIN500 M2 PO; +CHLORDIAZEPOXID25 M1 PO; +MUCINEX ER600 MG PO
[2019-12-07 16:43] VITALS: BP 125/63
[2019-12-07 17:27] LABS: BILIRUBIN NEGATIVE (NEGATIVE); BLOOD NEGATIVE (NEGATIVE); CLARITY SL CLOUDY (CLEAR); COLOR YELLOW (YELLOW); GLUCOSE NEGATIVE (NEGATIVE); KETONE NEGATIVE (NEGATIVE); LEUKO ESTERASE NEGATIVE (NEGATIVE); NITRITE NEGATIVE (NEGATIVE); PH 6.5 (5.0-9.0)
[2019-12-07 17:33] LABS: BASO # 0.1 10*3/uL (0.0-0.1); EOS % 0.5 % (1.0-4.0); HEMATOCRIT 36.3 % (37.0-47.0); HEMOGLOBIN 12.1 g/dl (12.0-16.0); LYMPH # 2.6 10*3/uL (1.3-4.4); LYMPH % 41.8 % (27.0-41.0); MEAN CELL VOLUME 91.2 fl (81.0-99.0); MEAN CORPUSCULAR HGB 30.4 pg (27.0-31.0); MEAN CORPUSCULAR HGB CONC 33.3 g/dl (33.0-37.0); MEAN PLATELET VOLUME 10.4 fl (9.6-12.3); MONO # 0.6 10*3/uL (0.1-1.0); MONO % 9.1 % (3.0-9.0); NEUT % 47.4 % (47.0-73.0); PLATELET COUNT AUTOMATED 184 10*3/uL (130-400); RED BLOOD COUNT 3.98 10*6/uL (4.10-5.10); WHITE BLOOD COUNT 6.3 10*3/uL (4.8-10.8)
[2019-12-07 17:36] LABS: URINE AMPHETAMINES < 1000 (1000ng/ml); URINE BARBITURATES < 200 (200ng/ml); URINE BENZODIAZEPINES < 200 (200ng/ml); URINE CANNABINOIDS (THC) < 50 (50ng/ml); URINE COCAINE < 300 (300ng/ml); URINE METHADONE < 300 (300ng/ml); URINE OPIATES < 300 (300ng/ml)
[2019-12-07 17:40] LABS: URINE PHENCYCLIDINE < 25 (25ng/ml)
[2019-12-07 17:42] LABS: EPITHELIAL CELLS 0-2; WBC 0-2 wbc/hpf (0-5)
[2019-12-07 17:49] LABS: ALBUMIN 3.2 gm/dl (3.1-4.5); ALKALINE PHOSPHATASE 188 U/L (45-117); BUN 5 mg/dl (7-24); CHLORIDE 108 mmol/L (98-107); CREATININE 0.94 mg/dL (0.55-1.02); LIPASE 269 U/L (73-393); POTASSIUM 3.6 mmol/L (3.5-5.1); SGOT/AST 143 IU/L (3-35); SGPT/ALT 77 U/L (12-78); SODIUM 139 mmol/L (136-145); TOTAL PROTEIN 8.9 gm/dL (6.4-8.2)
[2019-12-07 17:53] LABS: ACT PARTIAL THROMBO TIME 29.5 SECONDS (20.0-32.1); INTERNATIONAL NORM RATIO 1.2 (2.0-3.5)
[2019-12-07 17:54] LABS: ACETAMINOPHEN (TYLENOL) < 5.0 ug/ml (10-30); TROPONIN I < 0.015 ng/ml (<0.045)
[2019-12-07 20:41] VITALS: BP 145/78
--- NOTE | 2019-12-07 20:43 | NUR ---
PT TO HAVE CT PRIOR TO TRANSPORT TO CCU PT ALERT GAVE CUP OF ICE
--- NOTE | 2019-12-07 21:38 | NUR ---
PT BACK FROM CT
--- NOTE | 2019-12-07 21:55 | NUR ---
A 39 YEAR OLD FEMALE admitted to [facility], under the services of JOÃO Douglas DO with a diagnosis of ALCOHOL INTOXICATION. Chief complaint is DECREASED LOC. Patient arrived via stretcher from NE. Monitor applied. Initial assessment completed. Vital signs taken and recorded. JOÃO DOUGLAS DO notified of admission to the unit. Orders received. See assessment for past medical history, medications and allergies. Patient and/or family oriented to unit. [facility] ICCU visitation policy reviewed. Clothing/patient valuable form completed. LAURIE BOX
[2019-12-07 22:00] VITALS: BP 118/58
--- NOTE | 2019-12-07 22:32 | NUR ---
PT REQUESTING A BOXED LUNCH. MVI BAG INFUSING WELL. BED ALARM INTACT. CCOOPERATIVE AT PRESENT. NO DISTRESS NOTED.
--- NOTE | 2019-12-07 22:39 | NUR ---
[id number] IV GIVEN FOR C/O'S "WITHDRAWL SYMPTOMS".SL TREMORS NOTED OF HANDS. WILL MONITOR.
--- NOTE | 2019-12-07 22:55 | NUR ---
TOOK BOXED LUNCH WELL PO. NO NAUSEA/VOMITING NOTED. EARLIER ATIVAN EFFECTIVE.
--- NOTE | 2019-12-07 23:47 | NUR ---
SCABBED AREAS NOTED R FOREARM. NO PICS TAKEN IN ER. PT ADMITS TO "PICKING" AT SKIN AND STATES ALSO HER CAT "SCRATCHED" HER.
[2019-12-08] VITALS: BP 117/64
[2019-12-08 04:00] VITALS: BP 137/76
--- NOTE | 2019-12-08 05:37 | NUR ---
PATIENT STATED THAT SHE WAS STARTING TO HAVE WITHDRAWL SYMPTOMS THIS MORNING PATIENT GIVEN VISTARIL ROBAXIN AND ZOFRAN FOR NAUSEA. PATIENT THEN WENT RIGHT BACK TO SLEEP
[2019-12-08 06:10] LABS: ALKALINE PHOSPHATASE 164 U/L (45-117); BUN 5 mg/dl (7-24); CHLORIDE 113 mmol/L (98-107); CREATININE 0.81 mg/dL (0.55-1.02); POTASSIUM 3.6 mmol/L (3.5-5.1); SGOT/AST 124 IU/L (3-35); SGPT/ALT 66 U/L (12-78); SODIUM 143 mmol/L (136-145); TOTAL PROTEIN 7.9 gm/dL (6.4-8.2)
[2019-12-08 06:27] LABS: BASO % 0.8 % (0.0-1.0); EOS % 0.8 % (1.0-4.0); HEMATOCRIT 33.1 % (37.0-47.0); HEMOGLOBIN 11.1 g/dl (12.0-16.0); LYMPH % 38.6 % (27.0-41.0); MEAN CELL VOLUME 91.4 fl (81.0-99.0); MEAN CORPUSCULAR HGB 30.7 pg (27.0-31.0); MEAN CORPUSCULAR HGB CONC 33.5 g/dl (33.0-37.0); MEAN PLATELET VOLUME 10.3 fl (9.6-12.3); MONO # 0.5 10*3/uL (0.1-1.0); MONO % 9.8 % (3.0-9.0); NEUT # 2.6 10*3/uL (2.3-7.9); NEUT % 49.8 % (47.0-73.0); PLATELET COUNT AUTOMATED 150 10*3/uL (130-400); RED BLOOD COUNT 3.62 10*6/uL (4.10-5.10); RED CELL DISTRI WIDTH 17.1 % (0-14.5); WHITE BLOOD COUNT 5.1 10*3/uL (4.8-10.8)
[2019-12-08 08:00] VITALS: BP 134/71
--- NOTE | 2019-12-08 09:19 | NUR ---
1 MG IV ATIVAN PER REQUEST ALSO BENTLY FOR STOMACH CRAMPS
--- NOTE | 2019-12-08 11:00 | NUR ---
Clinical Trial Head in to talk to patient. Patient states lives at home with her fiprisca. There are no steps in the home. Physician: Dr. Mckayla Vega [facility] Home health services: none Patient's level of ADLs: INDEPENDENT Patient has working utilities: yes DME: none Follow-up physician's appointment after d/c: will be made by the hospitalist nurse director upon discharge Does patient want to access PORTAL?: no Discharge plan discussed with patient. She lives at home with her fiance. She is independent in her ADLs and ambulation. Discussed home health care services and she denies any home needs. When medically stable she will be discharged to home. She states her fiance, Daniel, will provide transportation on discharge. FELICE STANFORD
--- NOTE | 2019-12-08 11:45 | NUR ---
ZOFRAN FOR NAUSEA MOTRIN FOR BACK PAIN PT HAS BEEN ON PHONE, SCREAMING AT MOTHER "IDONT WANT TO GO TO [place]" VERY DRAMATIC AND LOUD, TEARFUL
[2019-12-08 12:00] VITALS: BP 142/80
--- NOTE | 2019-12-08 12:00 | NUR ---
CONSULT CALLED TO Rosita
[2019-12-08 16:00] VITALS: BP 184/107
--- NOTE | 2019-12-08 18:31 | NUR ---
PT C/O DILLAN "RANJEET" JACKIE ORTIZ
[2019-12-08 20:00] VITALS: BP 108/72; BP 144/85
[2019-12-09] VITALS: BP 117/73
[2019-12-09 04:00] VITALS: BP 142/70
[2019-12-09 05:16] LABS: BASO % 0.7 % (0.0-1.0); EOS # 0.1 10*3/uL (0.0-0.4); EOS % 2.5 % (1.0-4.0); HEMOGLOBIN 11.3 g/dl (12.0-16.0); LYMPH # 1.9 10*3/uL (1.3-4.4); LYMPH % 42.4 % (27.0-41.0); MEAN CELL VOLUME 91.2 fl (81.0-99.0); MEAN CORPUSCULAR HGB 30.3 pg (27.0-31.0); MEAN CORPUSCULAR HGB CONC 33.2 g/dl (33.0-37.0); MEAN PLATELET VOLUME 10.9 fl (9.6-12.3); MONO # 0.4 10*3/uL (0.1-1.0); MONO % 9.7 % (3.0-9.0); NEUT % 44.5 % (47.0-73.0); PLATELET COUNT AUTOMATED 125 10*3/uL (130-400); RED BLOOD COUNT 3.73 10*6/uL (4.10-5.10); RED CELL DISTRI WIDTH 16.8 % (0-14.5); WHITE BLOOD COUNT 4.4 10*3/uL (4.8-10.8)
--- NOTE | 2019-12-09 05:22 | NUR ---
PATIENT GOT UP AND WENT TO THE SINK AND GOT WATER AFTER BEING TOLD ME SEVERAL TIMES THAT SHE WAS NPO AFTER MIDNIGHT FOR A TEST. IT IS UNKNOWN OF HOW MUCH WATER THE PATIENT HAS BEEN DRINKING WHEN I AM IN A ANOTHER PATIENTS ROOM.
[2019-12-09 05:36] LABS: ALKALINE PHOSPHATASE 176 U/L (45-117); BUN 7 mg/dl (7-24); CHLORIDE 111 mmol/L (98-107); POTASSIUM 3.7 mmol/L (3.5-5.1); SGOT/AST 136 IU/L (3-35); SGPT/ALT 69 U/L (12-78); SODIUM 142 mmol/L (136-145); TOTAL PROTEIN 8.3 gm/dL (6.4-8.2)
--- NOTE | 2019-12-09 07:56 | NUR ---
Patient has complaint of nausea, shaking and feeling hot. Zofran given will given ativan when time allows. Will monitor and reassess.
[2019-12-09 08:00] VITALS: BP 138/86
--- NOTE | 2019-12-09 09:30 | NUR ---
VISTARIL GIVEN FOR ANXIETY AND ROBAXIN GIVEN FOR BACK PAIN.
[2019-12-09 12:00] VITALS: BP 153/84
--- NOTE | 2019-12-09 13:48 | NUR ---
Recreational Director in to see patient. No new needs or request at this time. She denies any home needs. When medically stable she will be discharged to home.
--- NOTE | 2019-12-09 14:36 | NUR ---
PATIENT AWOKE FEELING NAUSEATED. ZOFRAN GIVEN. WILL MONITOR AND REASSESS.
--- NOTE | 2019-12-09 15:35 | NUR ---
PATIENT HAS COMPLAINT OF DT'S, NOTICABLE TREMORS TO UPPER EXTS. PATIENT STATES SHE IS SEEING CATS IN HER ROOM. ATIVAN GIVEN. WILL MONITOR AND REASSESS.
[2019-12-09 16:00] VITALS: BP 152/95
--- NOTE | 2019-12-09 16:14 | NUR ---
PATIENT REQUESTED TORADOL FOR BACK PAIN, FROM FALL. SHE IS TO BE GIVEN MOTRIN PER DR. MAYS. MOTRIN WAS GIVEN, WILL MONITOR AND REASSESS.
--- NOTE | 2019-12-09 17:24 | NUR ---
PATIENT STILL COMPLAINS OF BEING ANXIOUS, AND HAVING TREMORS. ALSO NAUSEA. DOES NOT COMPLAIN OF PAIN. MOTRIN EFFECTIVE.
[2019-12-09 20:00] VITALS: BP 152/89
--- NOTE | 2019-12-09 21:18 | NUR ---
ROBAXIN AT 1930 FOR GENERALIZED "CRAMPING AND ACHING" AND VISTARIL AT 2100 FOR ANXIETY APPEARS TO BE EFFECTIVE...PT DOZING WITH RELAXED BODY. RESPIRATIONS EVEN AND UNLABORED.
[2019-12-10] VITALS: BP 102/70
--- NOTE | 2019-12-10 01:08 | NUR ---
ATIVAN IV GIVEN AT 0030 PER PT REQUEST SPECIFICALLY FOR "WITHDRAWAL" EFFECTIVE...PT SLEEPING, BODY RELAXED.
[2019-12-10 03:53] VITALS: BP 120/69
--- NOTE | 2019-12-10 04:59 | NUR ---
BECKIE AT 0215 PER PT REQUEST FOR ACHING AND CRAMPING EFFECTIVE...PT SLEEPING/SNORING.
[2019-12-10 05:09] LABS: ALBUMIN 2.8 gm/dl (3.1-4.5); ALKALINE PHOSPHATASE 179 U/L (45-117); BUN 8 mg/dl (7-24); CHLORIDE 108 mmol/L (98-107); CREATININE 1.07 mg/dL (0.55-1.02); POTASSIUM 3.3 mmol/L (3.5-5.1); SGOT/AST 115 IU/L (3-35); SGPT/ALT 63 U/L (12-78); SODIUM 141 mmol/L (136-145); TOTAL PROTEIN 7.8 gm/dL (6.4-8.2)
--- NOTE | 2019-12-10 06:18 | NUR ---
ATIVAN GIVEN PER PT REQUEST AT 0545 FOR PT C/O COLD SWEATS FROM DT'S (SKIN W/D)...EFFECTIVE, PT DOZING/SNORING.
[2019-12-10 08:00] VITALS: BP 140/84
--- NOTE | 2019-12-10 10:30 | NUR ---
BENTYL, ROBAXIN, VISTARIL GIVEN PER PTS REQUEST FOR S/S WITHDRAWAL
--- NOTE | 2019-12-10 10:34 | NUR ---
HAND SANTIZER REMOVED FROM BEDSIDE AT DRS REQUEST PT HAS BEEN KNOWN TO DRINK IT ON PAST ADMISSIONS
--- NOTE | 2019-12-10 11:00 | NUR ---
PT LOUDLY TALKING ON PHONE, SOUNDS LIKE SHE IS CRYING AT TIMES, "MOMMY, I NEED SOME HAND ANIMAL CARE SERVICE WORKER, THEY TOOK MINE" PT CONTINUES TALKING LOUDLY AND IS SEEN PULLING THE CURTAIN BACK, LOOKING TOWARD THE DESK
--- NOTE | 2019-12-10 11:30 | NUR ---
PT YELLING OUT FROM BEHIND CURTAINS, "IS ANY OF MY MEDS DUE" WHEN QUESTIONED TO WHAT SHE WANTED, "WHATEVER IS DUE" AND HELD PUT HER HANDS SHAKING THEM..."LOOK I HAVE TREMORS"...
[2019-12-10 12:00] VITALS: BP 154/91
--- NOTE | 2019-12-10 12:13 | NUR ---
IV ATIVAN PER PTS REQUEST
--- NOTE | 2019-12-10 13:00 | NUR ---
IV ATIVAN APPEARS EFFECTIVE, PT CALMER
--- NOTE | 2019-12-10 13:45 | NUR ---
PT ASKING TO GO HOME SINCE HER PO ATIVAN TAPER IS DONE, RESIDENT UPDATED, AND HOSPITALIST WILL NOT DISCHARGE THE PT TODAY, PT ADVISED, MOTHER AT BEDSIDE
[2019-12-10 16:00] VITALS: BP 168/85
--- NOTE | 2019-12-10 16:48 | NUR ---
IV ATIVAN PER PTS REQUEST
--- NOTE | 2019-12-10 17:30 | NUR ---
CALMER, AT BEDSIDE BEHIND CLOSED CURTAINS
[2019-12-10 19:47] VITALS: BP 177/93
--- NOTE | 2019-12-10 21:12 | NUR ---
PO ATIVAN, BENTYL,ROBAXIN,VISTARIL PER REQUEST FOR SLEEP AND ANXIETY
--- NOTE | 2019-12-10 22:16 | NUR ---
RESTING QUIETLY, WITH CURTAINS PULLED
[2019-12-11] VITALS: BP 156/106
--- NOTE | 2019-12-11 | NUR ---
BP 163/103, notified Dr. Mobley, new order rec to DC IV fluid. Will continue to monitor.
[2019-12-11 04:00] VITALS: BP 160/94
[2019-12-11 07:51] LABS: BASO % 0.5 % (0.0-1.0); EOS # 0.2 10*3/uL (0.0-0.4); HEMATOCRIT 35.8 % (37.0-47.0); HEMOGLOBIN 11.7 g/dl (12.0-16.0); LYMPH # 1.2 10*3/uL (1.3-4.4); LYMPH % 28.2 % (27.0-41.0); MEAN CELL VOLUME 92.3 fl (81.0-99.0); MEAN CORPUSCULAR HGB 30.2 pg (27.0-31.0); MEAN CORPUSCULAR HGB CONC 32.7 g/dl (33.0-37.0); MEAN PLATELET VOLUME 11.6 fl (9.6-12.3); MONO # 0.4 10*3/uL (0.1-1.0); MONO % 10.5 % (3.0-9.0); NEUT # 2.3 10*3/uL (2.3-7.9); NEUT % 55.6 % (47.0-73.0); PLATELET COUNT AUTOMATED 105 10*3/uL (130-400); RED BLOOD COUNT 3.88 10*6/uL (4.10-5.10); RED CELL DISTRI WIDTH 17.4 % (0-14.5); WHITE BLOOD COUNT 4.2 10*3/uL (4.8-10.8)
[2019-12-11 08:00] VITALS: BP 126/79
[2019-12-11] MEDS ORDERED: LISINOPRIL10 M1 PO (08:12)
[2019-12-11 08:18] LABS: ALBUMIN 3.2 gm/dl (3.1-4.5); ALKALINE PHOSPHATASE 186 U/L (45-117); BUN 9 mg/dl (7-24); CHLORIDE 104 mmol/L (98-107); CREATININE 0.97 mg/dL (0.55-1.02); POTASSIUM 3.5 mmol/L (3.5-5.1); SGOT/AST 122 IU/L (3-35); SGPT/ALT 70 U/L (12-78); SODIUM 137 mmol/L (136-145); TOTAL PROTEIN 8.7 gm/dL (6.4-8.2)
--- NOTE | 2019-12-11 08:20 | NUR ---
DR BOSWELL HERE, PT SIGNED AMA, IV SITE REMOVED, PT CALLED FOR A RIDE
--- NOTE | 2019-12-11 08:24 | NUR ---
PT LEFT WITH ALL BELONGINGS
== END 2019-12-11 09:00 | disposition left against medical advice (07) | DRG 770 ==
LOC: ED 16:37 → EDHOLD 19:18 → ICCU 19:18
PROVIDERS: Family Medicine; Internal Medicine; Nurse Practitioner Family; ADMIT Internal Medicine
DX: F10.229 Alcohol dependence with intoxication, unspecified (principal); F10.239 Alcohol dependence with withdrawal, unspecified; R65.11 Systemic inflammatory response syndrome (SIRS) of non-infectious origin with acute organ dysfunction; F33.2 Major depressive disorder, recurrent severe without psychotic features; E44.0 Moderate protein-calorie malnutrition; E87.8 Other disorders of electrolyte and fluid balance, not elsewhere classified; F17.210 Nicotine dependence, cigarettes, uncomplicated; K86.1 Other chronic pancreatitis; F41.1 Generalized anxiety disorder; E87.5 Hyperkalemia; K21.9 Gastro-esophageal reflux disease without esophagitis; I10 Essential (primary) hypertension; E78.5 Hyperlipidemia, unspecified; D64.9 Anemia, unspecified; Z53.29 Procedure and treatment not carried out because of patient's decision for other reasons; Y90.9 Presence of alcohol in blood, level not specified; Z71.6 Tobacco abuse counseling; Z68.39 Body mass index [BMI] 39.0-39.9, adult; Z88.1 Allergy status to other antibiotic agents; Z91.030 Bee allergy status; Z91.018 Allergy to other foods; Z80.42 Family history of malignant neoplasm of prostate; Z80.8 Family history of malignant neoplasm of other organs or systems; Z83.3 Family history of diabetes mellitus; Z83.6 Family history of other diseases of the respiratory system; Z82.0 Family history of epilepsy and other diseases of the nervous system; Z79.899 Other long term (current) drug therapy

== ENCOUNTER 2019-12-20 21:58 | Emergency (ER) | payer OTHER ==
[~2019-12-20] VITALS: Ht 162.5 cm; Wt 100.7 kg
[~2019-12-20 21:58] MED LIST changes: +LISINOPRIL10 M1 PO
[2019-12-20 23:38] LABS: BASO # 0.1 10*3/uL (0.0-0.1); BASO % 0.9 % (0.0-1.0); EOS % 0.5 % (1.0-4.0); HEMATOCRIT 29.8 % (37.0-47.0); HEMOGLOBIN 10.5 g/dl (12.0-16.0); LYMPH # 1.9 10*3/uL (1.3-4.4); LYMPH % 30.1 % (27.0-41.0); MEAN CELL VOLUME 88.2 fl (81.0-99.0); MEAN CORPUSCULAR HGB 31.1 pg (27.0-31.0); MEAN CORPUSCULAR HGB CONC 35.2 g/dl (33.0-37.0); MEAN PLATELET VOLUME 10.8 fl (9.6-12.3); MONO # 0.7 10*3/uL (0.1-1.0); MONO % 11.2 % (3.0-9.0); NEUT # 3.7 10*3/uL (2.3-7.9); NEUT % 57.1 % (47.0-73.0); PLATELET COUNT AUTOMATED 165 10*3/uL (130-400); RED BLOOD COUNT 3.38 10*6/uL (4.10-5.10); RED CELL DISTRI WIDTH 18.1 % (0-14.5); WHITE BLOOD COUNT 6.4 10*3/uL (4.8-10.8)
[2019-12-20 23:46] LABS: URINE AMPHETAMINES < 1000 (1000ng/ml); URINE BARBITURATES < 200 (200ng/ml); URINE BENZODIAZEPINES < 200 (200ng/ml); URINE CANNABINOIDS (THC) < 50 (50ng/ml); URINE COCAINE < 300 (300ng/ml); URINE METHADONE < 300 (300ng/ml); URINE OPIATES < 300 (300ng/ml)
[2019-12-20 23:47] LABS: URINE PHENCYCLIDINE < 25 (25ng/ml)
[2019-12-20 23:48] LABS: ACT PARTIAL THROMBO TIME 33.1 SECONDS (20.0-32.1); INTERNATIONAL NORM RATIO 1.3 (2.0-3.5)
[2019-12-20 23:53] LABS: ALBUMIN 3.2 gm/dl (3.1-4.5); ALKALINE PHOSPHATASE 189 U/L (45-117); BUN 5 mg/dl (7-24); CHLORIDE 93 mmol/L (98-107); LIPASE 367 U/L (73-393); POTASSIUM 3.9 mmol/L (3.5-5.1); SGOT/AST 151 IU/L (3-35); SGPT/ALT 69 U/L (12-78); SODIUM 123 mmol/L (136-145); TOTAL PROTEIN 8.3 gm/dL (6.4-8.2)
[2019-12-21 00:32] LABS: BILIRUBIN NEGATIVE (NEGATIVE); CLARITY CLEAR (CLEAR); COLOR YELLOW (YELLOW); GLUCOSE NEGATIVE (NEGATIVE); KETONE NEGATIVE (NEGATIVE)
[2019-12-21 00:33] LABS: BLOOD 1+ (NEGATIVE); LEUKO ESTERASE NEGATIVE (NEGATIVE); NITRITE NEGATIVE (NEGATIVE); UROBILINOGEN 0.2 E.U./dl (0.2-1.0)
[2019-12-21 00:35] LABS: WBC 0-2 wbc/hpf (0-5)
== END 2019-12-21 01:30 | disposition left against medical advice (07) ==
LOC: ED 21:58
PROVIDERS: Nurse Practitioner Family
DX: R04.0 Epistaxis (principal); I10 Essential (primary) hypertension; K21.9 Gastro-esophageal reflux disease without esophagitis; E78.5 Hyperlipidemia, unspecified; F17.200 Nicotine dependence, unspecified, uncomplicated; Z53.29 Procedure and treatment not carried out because of patient's decision for other reasons; Z91.018 Allergy to other foods; Z91.030 Bee allergy status; Z88.1 Allergy status to other antibiotic agents; Z79.899 Other long term (current) drug therapy

== ENCOUNTER → 2019-12-27 | Outpatient (CLI) | payer OTHER ==
[~2019-12-27] MED LIST changes: +BACLOFEN PO; +CIPRO250 MG PO; +METOPROLOL SUCC25 M2 PO; +ZESTRIL20 MG PO; +ZESTRIL40 MG PO
== END | disposition home or self-care (01) ==
LOC: CARD 12-22 13:00
DX: R06.02 Shortness of breath (principal); R60.9 Edema, unspecified

== ENCOUNTER 2020-01-16 06:44 | Inpatient (IN) | payer OTHER ==
[~2020-01-16] VITALS: Ht 162.5 cm; Wt 107.2 kg
[~2020-01-16 06:44] MED LIST changes: -BACLOFEN PO; -CIPRO250 MG PO; -METOPROLOL SUCC25 M2 PO; -ZESTRIL20 MG PO; -ZESTRIL40 MG PO
[2020-01-16 06:49] VITALS: BP 142/79
[2020-01-16 07:51] VITALS: BP 142/80
--- NOTE | 2020-01-16 08:10 | NUR ---
pt has tried to urinate unsuccessfully x1.
[2020-01-16 08:29] LABS: BASO % 0.7 % (0.0-1.0); HEMATOCRIT 30.2 % (37.0-47.0); LYMPH # 0.6 10*3/uL (1.3-4.4); LYMPH % 13.8 % (27.0-41.0); MEAN CELL VOLUME 89.9 fl (81.0-99.0); MEAN CORPUSCULAR HGB 32.7 pg (27.0-31.0); MEAN CORPUSCULAR HGB CONC 36.4 g/dl (33.0-37.0); MEAN PLATELET VOLUME 10.7 fl (9.6-12.3); MONO # 0.4 10*3/uL (0.1-1.0); MONO % 9.1 % (3.0-9.0); NEUT # 3.3 10*3/uL (2.3-7.9); NEUT % 76.2 % (47.0-73.0); PLATELET COUNT AUTOMATED 111 10*3/uL (130-400); RED BLOOD COUNT 3.36 10*6/uL (4.10-5.10); RED CELL DISTRI WIDTH 15.4 % (0-14.5); WHITE BLOOD COUNT 4.3 10*3/uL (4.8-10.8)
[2020-01-16 08:39] LABS: ALBUMIN 3.3 gm/dl (3.1-4.5); ALKALINE PHOSPHATASE 159 U/L (45-117); BUN 4 mg/dl (7-24); CREATININE 0.75 mg/dL (0.55-1.02); LIPASE 196 U/L (73-393); SGOT/AST 168 IU/L (3-35); SGPT/ALT 75 U/L (12-78); TOTAL PROTEIN 8.5 gm/dL (6.4-8.2); TROPONIN I 0.018 ng/ml (<0.045)
[2020-01-16 08:45] LABS: ACT PARTIAL THROMBO TIME 34.2 SECONDS (20.0-32.1); INTERNATIONAL NORM RATIO 1.3 (2.0-3.5)
[2020-01-16 08:53] LABS: SODIUM 112 mmol/L (136-145)
[2020-01-16 08:54] LABS: BETA-HCG, QUANT < 1.0 mIU/mL (1-3); CHLORIDE 74 mmol/L (98-107)
[2020-01-16 09:34] LABS: BILIRUBIN NEGATIVE (NEGATIVE); BLOOD NEGATIVE (NEGATIVE); CLARITY SL CLOUDY (CLEAR); COLOR YELLOW (YELLOW); GLUCOSE NEGATIVE (NEGATIVE); KETONE NEGATIVE (NEGATIVE); LEUKO ESTERASE NEGATIVE (NEGATIVE); NITRITE NEGATIVE (NEGATIVE); PH 7.5 (5.0-9.0); SPECIFIC GRAVITY 1.005 (1.005-1.030); UROBILINOGEN 0.2 E.U./dl (0.2-1.0)
[2020-01-16 09:42] LABS: RBC 0-2 rbc/hpf (0-2); WBC 0-2 wbc/hpf (0-5)
--- NOTE | 2020-01-16 10:00 | NUR ---
A 39, admitted to ICCU, under the services of CYNDY Butterfield DO with a diagnosis of ALCOHOL DEPENDENCE & HYPONATREMIA. Chief complaint is VOMITING & DIARRHEA FOR LAST FEW DAYS BUT CONTINUES TO DRINK 3 TALL BOYS & LOTS OF WATER. Patient arrived via stretcher from ER. Monitor applied. Initial assessment completed. Vital signs taken and recorded. CYNDY BUTTERFIELD DO notified of admission to the unit. Orders received. See assessment for past medical history, medications and allergies. Patient and/or family oriented to unit. [facility] ICCU visitation policy reviewed. Clothing/patient valuable form completed. ISHA CISNEROS
--- NOTE | 2020-01-16 10:20 | NUR ---
PER THE PATIENT SHE WANTS TO QUIT BUT IS NOT WILLING TO GO TO IN-PATIENT AT THIS TIME...
[2020-01-16] MEDS ORDERED: ZESTRIL20 MG PO (10:28)
[2020-01-16] MEDS ORDERED: BACLOFEN PO (10:33)
--- NOTE | 2020-01-16 10:46 | NUR ---
MEDICATED WITH PRN IV ATIVAN & ZOFRAN FOR NAUSEA, MILD TREMORS FELT BUT NO SEEN, ANXIETY.
[2020-01-16 10:48] LABS: ABG BASE EXCESS 3.6 mmol/L (-2.0-2.0); ARTERIAL BLOOD GAS PH 7.505 (7.35-7.45)
[2020-01-16 10:49] LABS: URINE CHLORIDE, RANDOM 32 mmol/L
[2020-01-16 10:51] LABS: URINE CREATININE RANDOM < 13.00 mg/dL
--- NOTE | 2020-01-16 10:58 | NUR ---
LAYING ON SIDE SNORING. FIANCE AT BEDSIDE & PER PT HE IS TO TAKE ALL BELONGINGS. DR JIMENEZ AWARE THAT MED REC IS UP TO DATE & ABG RESULTS
--- NOTE | 2020-01-16 11:00 | NUR ---
DR ALCALA ANSWERING SERVICE CALLED WITH CONSULT
[2020-01-16 11:07] LABS: URINE AMPHETAMINES < 1000 (1000ng/ml); URINE BARBITURATES < 200 (200ng/ml); URINE BENZODIAZEPINES < 200 (200ng/ml); URINE CANNABINOIDS (THC) < 50 (50ng/ml); URINE COCAINE < 300 (300ng/ml); URINE METHADONE < 300 (300ng/ml); URINE OPIATES < 300 (300ng/ml)
[2020-01-16 11:08] LABS: URINE PHENCYCLIDINE < 25 (25ng/ml)
[2020-01-16 12:00] VITALS: BP 125/72
--- NOTE | 2020-01-16 12:02 | NUR ---
UP TO BSC TO VOID WITH 2 ASSIT D/T UNSTEADY GAIT - PO ROUTINE ATIVAN GIVEN
[2020-01-16 13:20] LABS: ALBUMIN 3.1 gm/dl (3.1-4.5); BUN 3 mg/dl (7-24); CHLORIDE 81 mmol/L (98-107); CREATININE 0.67 mg/dL (0.55-1.02); PHOSPHOROUS 2.8 mg/dL (2.5-4.9)
[2020-01-16 13:30] LABS: SODIUM 116 mmol/L (136-145)
--- NOTE | 2020-01-16 13:50 | NUR ---
SPOKE WITH DR ALCALA ABOUT LABS - ORDERS RECEIVED. DISCUSSED WITH DR ENRIQUEZ & HE AGREED TO HOLD THE PO POTASSIUM
--- NOTE | 2020-01-16 13:54 | NUR ---
SLEEPING - RESP EASY & NONLABORED. VSS.
[2020-01-16 16:00] VITALS: BP 146/96
[2020-01-16 17:04] LABS: ALBUMIN 3.4 gm/dl (3.1-4.5); BUN 3 mg/dl (7-24); CHLORIDE 83 mmol/L (98-107); CREATININE 0.74 mg/dL (0.55-1.02); PHOSPHOROUS 3.3 mg/dL (2.5-4.9); POTASSIUM 3.2 mmol/L (3.5-5.1); SODIUM 121 mmol/L (136-145)
--- NOTE | 2020-01-16 17:26 | NUR ---
DR ALCALA ANSWERING SERVICE NOTIFIED THAT NEEDED TO CALL LAB RESULTS.
--- NOTE | 2020-01-16 18:01 | NUR ---
ORDERS RECEIVED FROM DR ALCALA
--- NOTE | 2020-01-16 18:34 | NUR ---
MEDICATED WITH PO VISTARIL FOR ANXIETY & PRN PO ZOFRAN FOR NAUSEA (REFLUX)
[2020-01-16 20:00] VITALS: BP 136/62
--- NOTE | 2020-01-16 20:04 | NUR ---
PATIENT GIVEN PRN MEDS FOR AGITATION AND RESTLESSNESS.
[2020-01-16 20:26] LABS: ALBUMIN 3.2 gm/dl (3.1-4.5); BUN 4 mg/dl (7-24); CHLORIDE 83 mmol/L (98-107); CREATININE 0.92 mg/dL (0.55-1.02); POTASSIUM 3.4 mmol/L (3.5-5.1)
[2020-01-16 20:27] LABS: PHOSPHOROUS 2.4 mg/dL (2.5-4.9)
[2020-01-16 20:31] LABS: SODIUM 118 mmol/L (136-145)
--- NOTE | 2020-01-16 22:15 | NUR ---
PATIENT ALSO STATING THAT SHE CAN NOT SLEEP PATIENT HAS BEEN ASLEEP AND SNORING SINCE MEDS GIVEN AT 2003. TRAZODONE WILL BE GIVEN NOW PER PATIENT REQUEST.
--- NOTE | 2020-01-16 22:15 | NUR ---
PATIENT GIVEN ATIVAN FOR DT'S
[2020-01-17] VITALS: BP 133/76
--- NOTE | 2020-01-17 01:37 | NUR ---
PATIENT GIVEN IV ZOFRAN FOR NAUSEA.
[2020-01-17 04:00] VITALS: BP 144/90
[2020-01-17 05:26] LABS: ALBUMIN 3.3 gm/dl (3.1-4.5); ALKALINE PHOSPHATASE 168 U/L (45-117); BUN 6 mg/dl (7-24); CHLORIDE 84 mmol/L (98-107); CREATININE 0.88 mg/dL (0.55-1.02); POTASSIUM 3.3 mmol/L (3.5-5.1); SGOT/AST 193 IU/L (3-35); SGPT/ALT 79 U/L (12-78); SODIUM 122 mmol/L (136-145); TOTAL PROTEIN 8.5 gm/dL (6.4-8.2)
[2020-01-17 06:05] LABS: BASO % 0.6 % (0.0-1.0); EOS % 0.8 % (1.0-4.0); HEMATOCRIT 32.9 % (37.0-47.0); HEMOGLOBIN 11.5 g/dl (12.0-16.0); LYMPH # 1.4 10*3/uL (1.3-4.4); LYMPH % 25.8 % (27.0-41.0); MEAN CELL VOLUME 92.4 fl (81.0-99.0); MEAN CORPUSCULAR HGB 32.3 pg (27.0-31.0); MEAN PLATELET VOLUME 11.7 fl (9.6-12.3); MONO # 0.6 10*3/uL (0.1-1.0); NEUT # 3.2 10*3/uL (2.3-7.9); NEUT % 60.6 % (47.0-73.0); PLATELET COUNT AUTOMATED 106 10*3/uL (130-400); RED BLOOD COUNT 3.56 10*6/uL (4.10-5.10); RED CELL DISTRI WIDTH 16.2 % (0-14.5); WHITE BLOOD COUNT 5.3 10*3/uL (4.8-10.8)
--- NOTE | 2020-01-17 07:39 | NUR ---
Shift chart check completed.24 HR chart check completed.
[2020-01-17 08:00] VITALS: BP 126/60; BP 144/90
--- NOTE | 2020-01-17 08:47 | NUR ---
ON ASSESSMENT PATIENT AROUSES EASILY. NO SEIZURE ACTIVITY. ASKING FOR BENADRYL. HER ROUTINE ORAL ATIVAN GIVEN AND WHEN ATTEMPTING TO GIVE IV BENADRYL IV WAS NON-FUNCTIONING. NEW IV STARTED AND BENADRYL 25 GIVEN. ROOM AIR. NO N/V/D. SEE ALL APPROPRIATE INTERVENTIONS.
--- NOTE | 2020-01-17 10:30 | NUR ---
Producer Director in to talk to patient. Patient states lives at home with her fiprisca. There are no steps in the home. Physician: Dr. Pereira [facility] Home health services: none Patient's level of ADLs: INDEPENDENT Patient has working utilities: yes DME: none Follow-up physician's appointment after d/c: will be made by the hospitalist nurse director upon discharge Does patient want to access PORTAL?: no Discharge plan discussed with patient. She lives at home with her fiance. She is independent in her ADLs and ambulation. Discussed home health care services and she denies any home needs. When medically stable she will be discharged to home. She states her fiance, Daniel, will provide transportation on discharge. FELICE STANFORD
--- NOTE | 2020-01-17 11:32 | NUR ---
PT HAS DOZED OFF AND ON MOST OF THE MORNING.
[2020-01-17 12:00] VITALS: BP 107/85; BP 112/49
--- NOTE | 2020-01-17 12:58 | NUR ---
PT MEDICATED EARLIER WITH ROBAXIN AND IBUPROFEN FOR MUSCLE SORENESS, VISTARIL FOR ANXIETY, AND A NICOTINE PATCH FOR SMOKING URGES. SHE'S CURRENTLY RESTING AT THIS TIME. NO SEIZURE ACTIVITY.
--- NOTE | 2020-01-17 14:30 | NUR ---
PT AWOKE FROM SLEEP AND JUMPED UP TO [facility]. CLAIMED "I HAD A DREAM ABOUT MY SISTER'S . IT MADE ME HAVE A PANIC ATTACK. I NEED MY EFFEXOR. CAN I HAVE ANY IV ATIVAN?" 2MG IV ATIVAN GIVEN PER PRN DOSE. REASSURANCES GIVEN.
--- NOTE | 2020-01-17 15:21 | NUR ---
PT MEDICATED WITH HER ROUTINE DOSE OF EFFEXOR AFTER DR STOCKTON NOTIFIED THAT NONE OF PATIENT'S HOME MEDS ARE ORDERED. PT IS SITTING UP CROSS LEGGED IN BED, WITH A DIETARY TRAY IN THE BED WITH HER AND SHE'S EATING. SHE ASKED "IS IT CLOSE TO TIME FOR MY ZOFRAN?" I ASKED IF SHE WAS NAUSEATED AND SHE SAID "YES, I'M TRYING TO CHOKE THIS FOOD DOWN". IV ZOFRAN GIVEN PER PRN DOSE. PT CONTINUES TO EAT. NO SEIZURE ACTIVITY. SHE HASN'T SLEPT SINCE THE EARLIER IV ATIVAN YET.
[2020-01-17 16:00] VITALS: BP 120/63
--- NOTE | 2020-01-17 16:06 | NUR ---
PT HEARD TALKING ON HER PHONE."I FEEL SO MUCH BETTER THAN I DID". AND "WE AREN'T GOING TO DRINK ANY MORE WHEN I GET HOME".
--- NOTE | 2020-01-17 17:22 | NUR ---
VISITOR AT BEDSIDE. PT BATHED AND CHANGED HER CLOTHES. LINENS CHANGED.
--- NOTE | 2020-01-17 18:12 | NUR ---
PT ATE WELL FOR DINNER. HER VISITOR STILL AT THE BEDSIDE. PT ASKING "IS IT TIME FOR ATIVAN? AND I'M A LITTLE QUEASY". IV ATIVAN 2MG AND BENADRYL 25MG IV GIVEN PER PRN MEDS. I ENCOURAGED HER TO LIE DOWN AND CLOSE HER EYES TO REST WITH THESE MEDS.
--- NOTE | 2020-01-17 18:42 | NUR ---
VISITOR HAS LEFT. PT RESTING SINCE EARLIER MEDS.
[2020-01-17 20:00] VITALS: BP 122/57
[2020-01-18] VITALS: BP 129/75
--- NOTE | 2020-01-18 02:16 | NUR ---
PATIENT HAS BEEN SLEEPING SINCE LAST MEDICATION GIVEN WITH NO COMPLAINTS.
[2020-01-18 04:00] VITALS: BP 93/50
[2020-01-18 05:29] LABS: ALKALINE PHOSPHATASE 174 U/L (45-117); BUN 9 mg/dl (7-24); CHLORIDE 91 mmol/L (98-107); POTASSIUM 3.6 mmol/L (3.5-5.1); SGOT/AST 133 IU/L (3-35); SGPT/ALT 64 U/L (12-78); SODIUM 125 mmol/L (136-145); TOTAL PROTEIN 7.6 gm/dL (6.4-8.2)
[2020-01-18 06:10] LABS: BASO % 0.6 % (0.0-1.0); EOS # 0.1 10*3/uL (0.0-0.4); EOS % 1.5 % (1.0-4.0); HEMATOCRIT 30.8 % (37.0-47.0); HEMOGLOBIN 10.6 g/dl (12.0-16.0); LYMPH # 0.9 10*3/uL (1.3-4.4); LYMPH % 28.1 % (27.0-41.0); MEAN CELL VOLUME 94.8 fl (81.0-99.0); MEAN CORPUSCULAR HGB 32.6 pg (27.0-31.0); MEAN CORPUSCULAR HGB CONC 34.4 g/dl (33.0-37.0); MONO # 0.5 10*3/uL (0.1-1.0); MONO % 14.5 % (3.0-9.0); NEUT # 1.8 10*3/uL (2.3-7.9); PLATELET COUNT AUTOMATED 86 10*3/uL (130-400); RED BLOOD COUNT 3.25 10*6/uL (4.10-5.10); RED CELL DISTRI WIDTH 15.6 % (0-14.5); WHITE BLOOD COUNT 3.3 10*3/uL (4.8-10.8)
--- NOTE | 2020-01-18 07:45 | NUR ---
PT C/O SEVERE ANXIETY AND TREMORS R/T DT'S. VISIBLE TREMORS NOTED IN PT'S HANDS. PT ALSO C/O NAUSEA. MEDICATED PT PER PRN ORDER WITH IV ATIVAN FOR C/O DT SYMPTOMS AND ZOFRAN FOR C/O NAUSEA. WILL CONTINUE TO MONITOR PT.
[2020-01-18 08:00] VITALS: BP 111/88
--- NOTE | 2020-01-18 08:49 | NUR ---
PT STILL C/O SOME ANXIETY AND NAUSEA BUT BETTER WITH EARLIER PRN MEDS.
--- NOTE | 2020-01-18 09:40 | NUR ---
MEDICATED PT PER PRN ORDER WITH BENTYL FOR C/O ABD. CRAMPING AND ROBAXIN FOR C/O MUSCLE ACHES.
--- NOTE | 2020-01-18 09:41 | NUR ---
DR ABERNATHY IN TO SEE PT. PT EXPLAINED TO DR ABERNATHY THAT SHE WOULD LIKE TO BE DISCHARGED TODAY R/T HER SON HAS BROKEN HIS LEG AND IS BIENG TRANSFERED TO [place]. DR ABERNATHY TOLD PT THAT HE NEEDS TO SPEAK WITH NEPHROLOGY ABOUT HER NA LEVELS BEFORE HE WOULD DISCHARGE HER. PT VERBALIZED UNDERSTANDING.
--- NOTE | 2020-01-18 11:25 | NUR ---
DR ALCALA IN TO SEE PT. HE DISCUSSED THE POSSIBLE RAMIFICATIONS OF PT LEAVING AMA BEFORE HER SODIUM LEVEL NORMALIZES UP TO AND INCLUDING WITH PT AND HER FIANCE. DR ALCALA DID INFORM PT TO LIMIT ALL FLUID INTAKE, EAT A HIGH PROTEIN DIET AND NO ALCOHOL CONSUMPTION. PT AND PT'S FIANCE VERBALIZED UNDERSTANDING.
--- NOTE | 2020-01-18 11:46 | NUR ---
Pt signed out AMA. Discharge instructions reviewed with patient/family. Patient receptive and verbalizes understanding. Follow-up care arranged. Written instructions given to patient/family. RAMIRO NÚÑEZ
--- NOTE | 2020-01-18 11:49 | NUR ---
Patient signed out AMA. Patient encouraged to stay and advised of possible consequences of premature discharge. Physician DR ABERNATHY AND DR ALCALA and licensed retail supervisor SHARON LEUNG notified. Patient instructed what to do regarding care post-departure from the hospital; emergency phone numbers provided. Patent was accompanied by HER [address]. RAMIRO NÚÑEZ
== END 2020-01-18 11:49 | disposition left against medical advice (07) | DRG 426 ==
LOC: ED 06:44 → EDHOLD 09:08 → ICCU 09:08
PROVIDERS: Emergency Medicine; Internal Medicine; Internal Medicine Nephrology; ADMIT Internal Medicine
DX: E87.1 Hypo-osmolality and hyponatremia (principal); F10.239 Alcohol dependence with withdrawal, unspecified; E87.8 Other disorders of electrolyte and fluid balance, not elsewhere classified; R73.9 Hyperglycemia, unspecified; E87.6 Hypokalemia; E44.0 Moderate protein-calorie malnutrition; D69.6 Thrombocytopenia, unspecified; D64.9 Anemia, unspecified; K86.1 Other chronic pancreatitis; K21.9 Gastro-esophageal reflux disease without esophagitis; B18.2 Chronic viral hepatitis C; F10.229 Alcohol dependence with intoxication, unspecified; R74.0 Nonspecific elevation of levels of transaminase and lactic acid dehydrogenase [LDH]; E83.42 Hypomagnesemia; F41.1 Generalized anxiety disorder; F32.9 Major depressive disorder, single episode, unspecified; E78.5 Hyperlipidemia, unspecified; E87.2 Acidosis; I10 Essential (primary) hypertension; Z53.29 Procedure and treatment not carried out because of patient's decision for other reasons; F17.210 Nicotine dependence, cigarettes, uncomplicated; Z71.6 Tobacco abuse counseling; Z91.030 Bee allergy status; Z88.1 Allergy status to other antibiotic agents; Z91.018 Allergy to other foods; Z80.8 Family history of malignant neoplasm of other organs or systems; Z82.49 Family history of ischemic heart disease and other diseases of the circulatory system; Z81.3 Family history of other psychoactive substance abuse and dependence; Z82.5 Family history of asthma and other chronic lower respiratory diseases; Z80.42 Family history of malignant neoplasm of prostate; Z83.3 Family history of diabetes mellitus; Z82.0 Family history of epilepsy and other diseases of the nervous system; Z79.899 Other long term (current) drug therapy; Z68.39 Body mass index [BMI] 39.0-39.9, adult

== ENCOUNTER 2020-01-19 18:11 | Inpatient (IN) | payer OTHER ==
[~2020-01-19] VITALS: Ht 162.5 cm; Wt 104.1 kg
[~2020-01-19 18:11] MED LIST changes: +BACLOFEN PO; +ZESTRIL20 MG PO
[2020-01-19 18:19] VITALS: BP 139/85
[2020-01-19 18:57] LABS: BASO # 0.1 10*3/uL (0.0-0.1); EOS # 0.1 10*3/uL (0.0-0.4); EOS % 2.3 % (1.0-4.0); HEMATOCRIT 31.3 % (37.0-47.0); HEMOGLOBIN 10.6 g/dl (12.0-16.0); LYMPH # 1.3 10*3/uL (1.3-4.4); LYMPH % 24.3 % (27.0-41.0); MEAN CORPUSCULAR HGB 31.8 pg (27.0-31.0); MEAN CORPUSCULAR HGB CONC 33.9 g/dl (33.0-37.0); MONO # 0.5 10*3/uL (0.1-1.0); MONO % 10.3 % (3.0-9.0); NEUT # 3.2 10*3/uL (2.3-7.9); NEUT % 61.9 % (47.0-73.0); PLATELET COUNT AUTOMATED 111 10*3/uL (130-400); RED BLOOD COUNT 3.33 10*6/uL (4.10-5.10); RED CELL DISTRI WIDTH 15.8 % (0-14.5); WHITE BLOOD COUNT 5.1 10*3/uL (4.8-10.8)
[2020-01-19 19:17] LABS: ALBUMIN 3.3 gm/dl (3.1-4.5); ALKALINE PHOSPHATASE 240 U/L (45-117); BUN 7 mg/dl (7-24); CHLORIDE 91 mmol/L (98-107); CREATININE 0.89 mg/dL (0.55-1.02); POTASSIUM 3.5 mmol/L (3.5-5.1); SGOT/AST 113 IU/L (3-35); SGPT/ALT 65 U/L (12-78); SODIUM 124 mmol/L (136-145); TOTAL PROTEIN 8.2 gm/dL (6.4-8.2)
[2020-01-19 19:49] LABS: URINE AMPHETAMINES < 1000 (1000ng/ml); URINE BARBITURATES < 200 (200ng/ml); URINE BENZODIAZEPINES < 200 (200ng/ml); URINE CANNABINOIDS (THC) < 50 (50ng/ml); URINE COCAINE < 300 (300ng/ml); URINE METHADONE < 300 (300ng/ml); URINE OPIATES < 300 (300ng/ml)
[2020-01-19 19:54] LABS: URINE PHENCYCLIDINE < 25 (25ng/ml)
[2020-01-19 19:57] LABS: CLARITY CLEAR (CLEAR); COLOR YELLOW (YELLOW)
[2020-01-19 19:59] LABS: BILIRUBIN NEGATIVE (NEGATIVE); BLOOD NEGATIVE (NEGATIVE); GLUCOSE NEGATIVE (NEGATIVE); KETONE NEGATIVE (NEGATIVE); LEUKO ESTERASE NEGATIVE (NEGATIVE); NITRITE NEGATIVE (NEGATIVE); PH 7.5 (5.0-9.0); SPECIFIC GRAVITY 1.005 (1.005-1.030); UROBILINOGEN 0.2 E.U./dl (0.2-1.0)
[2020-01-19 20:00] LABS: EPITHELIAL CELLS 0-2
[2020-01-19 21:30] VITALS: BP 148/66
[2020-01-19 23:10] VITALS: BP 151/100
--- NOTE | 2020-01-19 23:10 | NUR ---
A 39 YEAR OLD FEMALE admitted to ICCU, under the services of JOÃO Douglas DO with a diagnosis of ALCOHOL WITH DRAWL, HYPONATREMIA. Chief complaint is NUMBNESS AND TINGLING IN FINGERTIPS. Patient arrived via stretcher from ER. Monitor applied. Initial assessment completed. Vital signs taken and recorded. JOÃO DOUGLAS DO notified of admission to the unit. Orders received. See assessment for past medical history, medications and allergies. Patient and/or family oriented to unit. [facility]U visitation policy reviewed. Clothing/patient valuable form completed. LAURIE BOX
[2020-01-19 23:18] LABS: INTERNATIONAL NORM RATIO 1.3 (2.0-3.5)
[2020-01-19 23:23] LABS: LIPASE 378 U/L (73-393)
--- NOTE | 2020-01-19 23:30 | NUR ---
NOTIFIED DR. ALCALA'S OFFICE FOR CONSULT. AWAITING CALL BACK.
[2020-01-19 23:32] LABS: BETA-HCG, QUANT < 1.0 mIU/mL (1-3)
[2020-01-20] VITALS (7 sets, daily range): BP systolic 106–161; BP diastolic 76–115
--- NOTE | 2020-01-20 05:30 | NUR ---
PATIENT REQUESTED SOMETHING TO HELP WITH HER TREMORS AND FEELING ANXIOUS. IV ATIVAN GIVEN. WILL MONITOR AND REASSESS.
[2020-01-20 05:57] LABS: ALBUMIN 3.2 gm/dl (3.1-4.5); ALKALINE PHOSPHATASE 192 U/L (45-117); BUN 7 mg/dl (7-24); CHLORIDE 100 mmol/L (98-107); CREATININE 0.94 mg/dL (0.55-1.02); PHOSPHOROUS 4.7 mg/dL (2.5-4.9); POTASSIUM 3.9 mmol/L (3.5-5.1); SGOT/AST 105 IU/L (3-35); SGPT/ALT 64 U/L (12-78); SODIUM 131 mmol/L (136-145); TOTAL PROTEIN 8.1 gm/dL (6.4-8.2)
[2020-01-20 06:04] LABS: BASO % 0.9 % (0.0-1.0); EOS # 0.1 10*3/uL (0.0-0.4); HEMATOCRIT 32.1 % (37.0-47.0); HEMOGLOBIN 10.9 g/dl (12.0-16.0); MEAN CELL VOLUME 94.7 fl (81.0-99.0); MEAN CORPUSCULAR HGB 32.2 pg (27.0-31.0); MEAN PLATELET VOLUME 11.2 fl (9.6-12.3); MONO # 0.6 10*3/uL (0.1-1.0); MONO % 13.6 % (3.0-9.0); NEUT # 2.5 10*3/uL (2.3-7.9); NEUT % 58.3 % (47.0-73.0); PLATELET COUNT AUTOMATED 117 10*3/uL (130-400); RED BLOOD COUNT 3.39 10*6/uL (4.10-5.10); RED CELL DISTRI WIDTH 15.8 % (0-14.5); WHITE BLOOD COUNT 4.3 10*3/uL (4.8-10.8)
--- NOTE | 2020-01-20 07:30 | NUR ---
[place] ZOFRAN FOR ONGOING C/O NAUSEA/ANXIETY
--- NOTE | 2020-01-20 10:00 | NUR ---
IV ATIVAN PER PTS REQUEST FOR ANXIETY
--- NOTE | 2020-01-20 10:51 | NUR ---
PT WOKEN UP AND GIVEN ONE TIME DOSE OF PAIN MED
--- NOTE | 2020-01-20 11:55 | NUR ---
SLEEPING SOUNDLY AFTER IV ATIVAN AND TORADOL
--- NOTE | 2020-01-20 12:51 | NUR ---
tessilon pearls for c/o cough
--- NOTE | 2020-01-20 15:00 | NUR ---
REFUSES AM CARE
--- NOTE | 2020-01-20 15:43 | NUR ---
IV ATIVAN, ROBAXIN, VISTARIL PER REQUEST FOR ANXIETY
--- NOTE | 2020-01-20 16:08 | NUR ---
BP AND HR IMPROVED AFTER IV ATIVAN
--- NOTE | 2020-01-20 16:08 | NUR ---
PRN MEDS HAVE BEEN EFFECTIVE
--- NOTE | 2020-01-20 19:46 | NUR ---
Patient reports tremors, states she is feeling anxious. Ativan given. Will moniotor and reassess.
--- NOTE | 2020-01-20 21:58 | NUR ---
Patient requested a sleeping pill and something to help with leg pain. trazadone and robaxin given. Will monitor and reassess.
[2020-01-21] VITALS: BP 118/90
--- NOTE | 2020-01-21 02:00 | NUR ---
Patient resting, no signs of distress. Trazadone, robaxin effective.
[2020-01-21 04:00] VITALS: BP 134/84
[2020-01-21 06:11] LABS: BASO % 0.6 % (0.0-1.0); EOS # 0.1 10*3/uL (0.0-0.4); EOS % 2.6 % (1.0-4.0); HEMATOCRIT 31.1 % (37.0-47.0); HEMOGLOBIN 10.3 g/dl (12.0-16.0); LYMPH % 28.4 % (27.0-41.0); MEAN CELL VOLUME 97.2 fl (81.0-99.0); MEAN CORPUSCULAR HGB 32.2 pg (27.0-31.0); MEAN CORPUSCULAR HGB CONC 33.1 g/dl (33.0-37.0); MEAN PLATELET VOLUME 11.3 fl (9.6-12.3); MONO # 0.6 10*3/uL (0.1-1.0); MONO % 17.4 % (3.0-9.0); NEUT # 1.8 10*3/uL (2.3-7.9); PLATELET COUNT AUTOMATED 111 10*3/uL (130-400); RED CELL DISTRI WIDTH 16.4 % (0-14.5); WHITE BLOOD COUNT 3.5 10*3/uL (4.8-10.8)
[2020-01-21 06:36] LABS: ALBUMIN 3.1 gm/dl (3.1-4.5); ALKALINE PHOSPHATASE 163 U/L (45-117); BUN 12 mg/dl (7-24); CHLORIDE 103 mmol/L (98-107); CREATININE 0.92 mg/dL (0.55-1.02); POTASSIUM 3.8 mmol/L (3.5-5.1); SGOT/AST 90 IU/L (3-35); SGPT/ALT 56 U/L (12-78); SODIUM 136 mmol/L (136-145); TOTAL PROTEIN 7.7 gm/dL (6.4-8.2)
--- NOTE | 2020-01-21 07:24 | NUR ---
Shift chart check completed.
[2020-01-21 08:00] VITALS: BP 150/98
--- NOTE | 2020-01-21 08:10 | NUR ---
PATIENT GOTTEN UP TO BSC (GAIT STEADY) AND REQUESTED IV ATIVAN. EXPLAINED THAT SHE IS DUE FOR HER PO DOSE & OTHER ROUTINE MEDS SO WE WILL WAIT ON IV ATIVAN. DENIES HALLUCINATIONS, NO TREMORS SEEN BUT C/O FEELING THEM, C/O ANXIETY.. DISCUSSED WITH THE PATIENT THAT WE NEED TO USE ALL PRN PO MEDS PRIOR TO USING IV ATIVAN UNLESS NECESSARY
--- NOTE | 2020-01-21 08:32 | NUR ---
DR SANTOS HERE TO SEE PATIENT
--- NOTE | 2020-01-21 08:48 | NUR ---
BACLOFEN GIVEN FOR MUSCLES ACHES AND MILD VISIBLE TREMORS
--- NOTE | 2020-01-21 10:31 | NUR ---
VISTARIL & ROBAXIN GIVEN FOR MILD TREMORS. DR TODD ARELLANO AND PATIENT WANTED TO GO HOME SO HE IS RELEASING HER THIS AFTERNOON
--- NOTE | 2020-01-21 10:49 | NUR ---
SUPERVISOR BRAIDING NOTIFIED BY CHARGE NURSE THAT THE PATIENT IS TO BE DISCHARGED THIS AFTERNOON SOMETIME AFTER NOON PER DR Angela BROOKS
[2020-01-21] MEDS ORDERED: ZESTRIL40 MG PO (10:53)
--- NOTE | 2020-01-21 11:05 | NUR ---
Discharge instructions reviewed with patient/family. Patient receptive and verbalizes understanding. Follow-up care arranged. Written instructions given to patient/family. Hep Lock discontinued. Site asymptomatic. Pressure applied. Sterile dressing applied. ISHA CISNEROS
--- NOTE | 2020-01-21 11:43 | NUR ---
AMBULATED OUT WITH FIANCE & BELONGINGS
== END 2020-01-21 11:40 | disposition home or self-care (01) | DRG 426 ==
LOC: ED 18:11 → EDHOLD 22:06 → ICCU 22:06
PROVIDERS: Internal Medicine; Nurse Practitioner Family; ADMIT Internal Medicine
DX: E87.1 Hypo-osmolality and hyponatremia (principal); F10.229 Alcohol dependence with intoxication, unspecified; E80.6 Other disorders of bilirubin metabolism; J20.8 Acute bronchitis due to other specified organisms; E87.6 Hypokalemia; E87.8 Other disorders of electrolyte and fluid balance, not elsewhere classified; R73.9 Hyperglycemia, unspecified; D69.6 Thrombocytopenia, unspecified; B18.2 Chronic viral hepatitis C; F41.1 Generalized anxiety disorder; F32.9 Major depressive disorder, single episode, unspecified; E78.5 Hyperlipidemia, unspecified; K21.9 Gastro-esophageal reflux disease without esophagitis; E44.0 Moderate protein-calorie malnutrition; F17.210 Nicotine dependence, cigarettes, uncomplicated; I10 Essential (primary) hypertension; K86.1 Other chronic pancreatitis; K70.10 Alcoholic hepatitis without ascites; K76.0 Fatty (change of) liver, not elsewhere classified; N80.9 Endometriosis, unspecified; Y90.3 Blood alcohol level of 60-79 mg/100 ml; Z68.39 Body mass index [BMI] 39.0-39.9, adult; Z71.6 Tobacco abuse counseling; Z83.3 Family history of diabetes mellitus; Z80.49 Family history of malignant neoplasm of other genital organs; Z83.6 Family history of other diseases of the respiratory system; Z82.0 Family history of epilepsy and other diseases of the nervous system; Z88.1 Allergy status to other antibiotic agents; Z91.030 Bee allergy status; Z91.018 Allergy to other foods; Z79.899 Other long term (current) drug therapy

== ENCOUNTER 2020-01-29 20:52 | Inpatient (IN) | payer OTHER ==
[~2020-01-29] VITALS: Ht 162.5 cm; Wt 103.1 kg
[~2020-01-29 20:52] MED LIST changes: +ZESTRIL40 MG PO
[2020-01-29 20:58] VITALS: BP 113/60
[2020-01-29 21:11] LABS: BASO # 0.1 10*3/uL (0.0-0.1); BASO % 1.7 % (0.0-1.0); EOS % 0.1 % (1.0-4.0); HEMATOCRIT 36.3 % (37.0-47.0); LYMPH # 3.2 10*3/uL (1.3-4.4); LYMPH % 37.9 % (27.0-41.0); MEAN CELL VOLUME 92.8 fl (81.0-99.0); MEAN CORPUSCULAR HGB 30.7 pg (27.0-31.0); MEAN CORPUSCULAR HGB CONC 33.1 g/dl (33.0-37.0); MEAN PLATELET VOLUME 10.6 fl (9.6-12.3); MONO # 0.9 10*3/uL (0.1-1.0); MONO % 11.1 % (3.0-9.0); NEUT # 4.1 10*3/uL (2.3-7.9); NEUT % 49.1 % (47.0-73.0); PLATELET COUNT AUTOMATED 206 10*3/uL (130-400); RED BLOOD COUNT 3.91 10*6/uL (4.10-5.10); RED CELL DISTRI WIDTH 16.9 % (0-14.5); WHITE BLOOD COUNT 8.4 10*3/uL (4.8-10.8)
[2020-01-29 21:25] LABS: ALBUMIN 2.9 gm/dl (3.1-4.5); ALKALINE PHOSPHATASE 208 U/L (45-117); BUN 6 mg/dl (7-24); CHLORIDE 110 mmol/L (98-107); CREATININE 0.94 mg/dL (0.55-1.02); POTASSIUM 3.7 mmol/L (3.5-5.1); SGOT/AST 152 IU/L (3-35); SGPT/ALT 70 U/L (12-78); SODIUM 142 mmol/L (136-145); TOTAL PROTEIN 8.4 gm/dL (6.4-8.2)
[2020-01-30] MEDS ORDERED: HYDR25T PO (00:15)
[2020-01-30 00:30] VITALS: BP 136/92
--- NOTE | 2020-01-30 00:30 | NUR ---
A 39, admitted to , under the services of JOÃO Douglas DO with a diagnosis of LIVER CIRRHOSIS WITH ALCOHOLISM. Chief complaint is ALCOHOL INTOXICATION. Patient arrived via bed from ER. Monitor applied. Initial assessment completed. Vital signs taken and recorded. JOÃO DOUGLAS DO notified of admission to the unit. Orders received. See assessment for past medical history, medications and allergies. Patient and/or family oriented to unit. [facility] visitation policy reviewed. Clothing/patient valuable form completed. SKYLER OCAMPO
--- NOTE | 2020-01-30 00:45 | NUR ---
PT HAS SCRATCH ON RIGHT UPPER ARM FROM CAT. STATES THAT SHE DOES NOT WANT ANY TREATMENT OR PICTURES.
--- NOTE | 2020-01-30 01:41 | NUR ---
PT LYING IN BED AT THIS TIME. NO S/S OF DISTRESS. CALL LIGHT IN PT REACH.
--- NOTE | 2020-01-30 01:47 | NUR ---
DR. OH NOTIFIED OF CIWA SCORE. ALSO NOTIFIED OF PT UNABLE TO VERIFY MEDICATIONS. WILL VERIFY WITH PHARMACY IN THE MORNING.
--- NOTE | 2020-01-30 02:30 | NUR ---
24 HR chart check completed.
[2020-01-30 04:30] LABS: BILIRUBIN NEGATIVE (NEGATIVE); BLOOD NEGATIVE (NEGATIVE); CLARITY CLEAR (CLEAR); COLOR STRAW (YELLOW); GLUCOSE NEGATIVE (NEGATIVE); KETONE NEGATIVE (NEGATIVE); LEUKO ESTERASE 2+ (NEGATIVE); NITRITE POSITIVE (NEGATIVE); SPECIFIC GRAVITY 1.005 (1.005-1.030); UROBILINOGEN 0.2 E.U./dl (0.2-1.0)
[2020-01-30 04:36] LABS: BACTERIA 3+; EPITHELIAL CELLS 0-2; WBC 31-40 wbc/hpf (0-5)
[2020-01-30 08:10] VITALS: BP 130/88
--- NOTE | 2020-01-30 09:00 | NUR ---
Support Teacher in to talk to patient. Patient states lives at home with fiprisca. There are no steps in the home. Physician: jazzy carter [facility]: [facility] Home health services: none Patient's level of ADLs: INDEPENDENT Patient has working utilities: all working DME: none Follow-up physician's appointment after d/c: will be made by hospitalist nurse director upon discharge Does patient want to access PORTAL?: no Discharge plan discussed with patient, she states she lives at home with fiance, she states she is independent in adls and ambulation, she will return home when medically stable and denies any home needs. MACHELLE DIAZ
--- NOTE | 2020-01-30 09:24 | NUR ---
IV Ativan given for active withdrawal symptoms. Will monitor.
--- NOTE | 2020-01-30 10:41 | NUR ---
Received a call from [employer] regarding patients heart rate. Face to face encounter with Erin Jaime regarding patients condition. Erin immediately assessed patients condition. Due to tremors and increased heart rate while patient was sitting Ativan was ordered. See new orders.
[2020-01-30 11:00] VITALS: BP 166/103
--- NOTE | 2020-01-30 11:00 | NUR ---
One time dose of Ativan given for withdrawal symptoms. Will momitor.
--- NOTE | 2020-01-30 11:10 | NUR ---
Spoke to Erin Jaime regarding patient c/o stuffy nose with post nasal drip. See new orders.
--- NOTE | 2020-01-30 11:40 | NUR ---
Nurse to nurse report given to MICKY Carlin.
--- NOTE | 2020-01-30 11:45 | NUR ---
House keeping found a black duffle bag in the bathroom of 427 that belonged to the patient. Gave it to ICCU nurse MICKY Carlin to return to patient.
--- NOTE | 2020-01-30 12:00 | NUR ---
ASSESSEMNT DONE & CHARTED - PT GIVEN PO ROUTINE ATIVAN SCHEDULED. PRN ROBAXIN, VISTARIL, ZOFRAN & BENTYL GIVEN..IV SITE HAS GOOD BLOOD RETURN. DR ABERNATHY AWARE OF TRANSFER BY [facility].
[2020-01-30 12:19] VITALS: BP 157/93
--- NOTE | 2020-01-30 12:45 | NUR ---
PATIENT AGAIN ASKING HOW SOON SHE CAN GET IV ATIVAN - PER PT THAT IS ONLY THING THAT WORKS. EXPLAINED SHE WAS JUST RECENTLY MEDICATED
--- NOTE | 2020-01-30 12:49 | NUR ---
PATIENT RESTING EYES CLOSED & SNORING -
--- NOTE | 2020-01-30 13:13 | NUR ---
ATIVAN GIVEN FOR INCREASED HEART RATE & BLOOD PRESSURE - PT LAYS DOWN GOES TO SLEEP/SNORES THEN BACK AWAKE & RESTLESS GETTING INTO EVERYONE ELSE'S CONVERSATION
--- NOTE | 2020-01-30 13:59 | NUR ---
ONE TIME DOSE BENADRYL GIVEN FOR CONTINUED RESTLESSNESS
[2020-01-30 16:00] VITALS: BP 140/75
--- NOTE | 2020-01-30 16:15 | NUR ---
Patient displaying withdrawal symptoms, including: irritability, anxiousness, restlessness and agitation, complicated by impulsive behavior. Patient scores a 14 on the withdrawal scale. Scheduled medications provided, doctor notified of patient's agitation and AMA potential. Will continue to monitor medication effectiveness.
--- NOTE | 2020-01-30 17:11 | NUR ---
PRN ATIVAN IV & PO ROBAXIN & VISTARIL GIVEN FOR CONTINUED RESTLESSNESS, TACHYCARDIA & FIDGITING.
--- NOTE | 2020-01-30 18:18 | NUR ---
SLEEPING AFTER FAMILY LEFT - MEDS EFFECTIVE
[2020-01-30 20:00] VITALS: BP 158/81
[2020-01-31] VITALS: BP 165/105
[2020-01-31 04:00] VITALS: BP 169/85
[2020-01-31 04:53] LABS: BUN 5 mg/dl (7-24); CHLORIDE 106 mmol/L (98-107); CREATININE 0.85 mg/dL (0.55-1.02); PHOSPHOROUS 3.1 mg/dL (2.5-4.9); POTASSIUM 4.1 mmol/L (3.5-5.1); SODIUM 138 mmol/L (136-145)
[2020-01-31 06:20] LABS: BASO % 0.7 % (0.0-1.0); EOS % 0.5 % (1.0-4.0); HEMATOCRIT 32.5 % (37.0-47.0); HEMOGLOBIN 10.9 g/dl (12.0-16.0); LYMPH # 1.1 10*3/uL (1.3-4.4); LYMPH % 18.5 % (27.0-41.0); MEAN CELL VOLUME 93.1 fl (81.0-99.0); MEAN CORPUSCULAR HGB 31.2 pg (27.0-31.0); MEAN CORPUSCULAR HGB CONC 33.5 g/dl (33.0-37.0); MEAN PLATELET VOLUME 11.6 fl (9.6-12.3); MONO # 0.5 10*3/uL (0.1-1.0); MONO % 7.7 % (3.0-9.0); NEUT # 4.2 10*3/uL (2.3-7.9); NEUT % 72.3 % (47.0-73.0); RED BLOOD COUNT 3.49 10*6/uL (4.10-5.10); WHITE BLOOD COUNT 5.8 10*3/uL (4.8-10.8)
[2020-01-31 06:24] LABS: PLATELET COUNT AUTOMATED 123 10*3/uL (130-400)
--- NOTE | 2020-01-31 07:21 | NUR ---
Shift chart check completed.24 HR chart check completed.
[2020-01-31 08:00] VITALS: BP 138/100; BP 154/98
--- NOTE | 2020-01-31 09:37 | NUR ---
ON ASSESSMENT THIS AM PATIENT WAS SITTING UP IN BED, ALERT AND ORIENTED. RESTING HEART RATE LOW 100'S. NO SEIZURE ACTIVITY. FAINT TREMOR SEEN. SHE C/O QUEASINESS AND AT 0833 WAS GIVEN IV ZOFRAN. SHE ASKED "IS THAT IV ATIVAN?" AND I TOLD HER NO IT WAS THE ZOFRAN AND THAT IV ATIVAN WOULD BE GIVEN WHEN NEEDED. AT 0915 PT WAS ABLE TO EAT HER BREAKFAST BUT THEN SAID "SUZETTE, I'M SEEING LINES AND SQUIGGLES". IV ATIVAN 1MG GIVEN AT 0916. PT ENCOURAGED TO PUT HER EYE MASK ON AND EAR PLUGS IN TO LESSEN STIMULATION.
--- NOTE | 2020-01-31 10:16 | NUR ---
DR MENEZES SAW PATIENT EARLIER.
--- NOTE | 2020-01-31 10:38 | NUR ---
CURRENTLY SLEEPING ON HER RIGHT SIDE SINCE EARLIER MEDS.
[2020-01-31 12:00] VITALS: BP 167/103
--- NOTE | 2020-01-31 12:08 | NUR ---
PT'S ROUTINE PO ATIVAN AND A PRN DOSE OF VISTARIL GIVEN AFTER PT AWOKE AND AGAIN MENTIONED SEEING WAVY LINES AND HER CAT.
--- NOTE | 2020-01-31 13:17 | NUR ---
IV ATIVAN REPEATED PT CLAIMS TO BE SEEING "AN ANCHOR ON THE FLOOR".
--- NOTE | 2020-01-31 13:50 | NUR ---
DOESN'T MENTION ANY HALLUCINATIONS AFTER GETTING IV ATIVAN. HER BOYFRIEND HAS ARRIVED.
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
[2020-01-31 16:00] VITALS: BP 140/90
--- NOTE | 2020-01-31 16:35 | NUR ---
ZOFRAN IV FOR NAUSEA BUT NO EMESIS. C/O PAIN AT IV SITE.
--- NOTE | 2020-01-31 18:16 | NUR ---
MEDICATED PT PER PRN ORDER WITH VISTARIL FOR C/O ANXIETY.
[2020-01-31 20:00] VITALS: BP 154/106
--- NOTE | 2020-01-31 20:00 | NUR ---
PT SITTING UP IN BED AWAKE, A&O. REQUESTING ATIVAN FOR SYMPTOMS OF WITHDRAWL. MEDICATED WITH ATIVAN PER PRN ORDER. RESP NONLABORED. NO ACUTE DISTRESS NOTED. RIGHT ACCUCATH PATENT AND FLUSHED WITH EASE.
--- NOTE | 2020-01-31 23:30 | NUR ---
MEDICATED WITH ZOFRAN PER PRN ORDER FOR C/O NAUSEA.
[2020-02-01] VITALS: BP 143/99
[2020-02-01 04:00] VITALS: BP 134/72
--- NOTE | 2020-02-01 04:45 | NUR ---
MEDICATED WITH ATIVAN PER PRN ORDER FOR C/O WITHDRAWL.
[2020-02-01 05:08] LABS: BUN 10 mg/dl (7-24); CHLORIDE 101 mmol/L (98-107); CREATININE 0.85 mg/dL (0.55-1.02); POTASSIUM 3.7 mmol/L (3.5-5.1); SODIUM 134 mmol/L (136-145)
[2020-02-01 05:56] LABS: BASO % 0.6 % (0.0-1.0); EOS # 0.1 10*3/uL (0.0-0.4); EOS % 2.6 % (1.0-4.0); HEMATOCRIT 34.3 % (37.0-47.0); HEMOGLOBIN 11.5 g/dl (12.0-16.0); LYMPH # 1.2 10*3/uL (1.3-4.4); LYMPH % 24.4 % (27.0-41.0); MEAN CELL VOLUME 93.5 fl (81.0-99.0); MEAN CORPUSCULAR HGB 31.3 pg (27.0-31.0); MEAN CORPUSCULAR HGB CONC 33.5 g/dl (33.0-37.0); MEAN PLATELET VOLUME 11.6 fl (9.6-12.3); MONO # 0.4 10*3/uL (0.1-1.0); MONO % 8.1 % (3.0-9.0); NEUT # 3.2 10*3/uL (2.3-7.9); NEUT % 64.1 % (47.0-73.0); PLATELET COUNT AUTOMATED 112 10*3/uL (130-400); RED BLOOD COUNT 3.67 10*6/uL (4.10-5.10); RED CELL DISTRI WIDTH 16.9 % (0-14.5); WHITE BLOOD COUNT 5.1 10*3/uL (4.8-10.8)
--- NOTE | 2020-02-01 07:36 | NUR ---
PT MEDICATED WITH ZOFRAN FOR NAUSEA, VISTARIL FOR ANXIETY AND ROBAXIN FOR MUSCLE ACHES.
[2020-02-01 08:00] VITALS: BP 143/92
--- NOTE | 2020-02-01 09:18 | NUR ---
PT MEDICATED WITH ATIVAN FOR CONTINUED C/O ANXIETY AND "SHAKES" PER PT.
--- NOTE | 2020-02-01 09:48 | NUR ---
CHIEF DEPUTY CLERK/BAILIFF SHARON LEUNG NOTIFIED PT HAS BEEN DOWNGRADED TO STEPDOWN.
--- NOTE | 2020-02-01 10:23 | NUR ---
PT MEDICATED WITH TORADOL 15MG IV FOR C/O BACK PAIN.
[2020-02-01 12:00] VITALS: BP 132/87
--- NOTE | 2020-02-01 12:00 | NUR ---
PT MEDICATED WITH ATIVAN 1MG IV AT HER REQUEST FOR ANXIETY.
--- NOTE | 2020-02-01 12:53 | NUR ---
PT ROLLED OVER ON HER SIDE AND SLEEPING AT THIS TIME.
--- NOTE | 2020-02-01 13:57 | NUR ---
PT TRANSFERED TO 428 AT THIS TIME REPORT GIVEN TO TONY RN.
--- NOTE | 2020-02-01 14:41 | NUR ---
PATIENT TRANSFERRED TO [facility], ORIENTED TO ROOM, IS TAKING SHOWER PER ORDER, THEN WILL HAVE FITNESS ASSISTANT REAPPLIED. REPORT RECEIVED FROM ICCU RN, SEE SHIFT ASSESSMENTS FOR DETAILS.
--- NOTE | 2020-02-01 15:46 | NUR ---
MEDICATED WITH PRN IV ATIVAN FOR ANXIETY/TREMORS.
[2020-02-01 16:00] VITALS: BP 126/85
--- NOTE | 2020-02-01 16:37 | NUR ---
MEDICATED WITH PRN PO VISTARIL AND ROBAXIN FOR ANXIETY AND BILATERAL HIPS PAIN.
--- NOTE | 2020-02-01 17:08 | NUR ---
ADMINISTERED IV TORADOL FOR BILATERAL HIPS PAIN AND STARTED PO PROTONIX FOR ACID REFLUX.
--- NOTE | 2020-02-01 18:41 | NUR ---
PRN IV ATIVAN, IV TORADOL, PO VISTARIL AND ROBAXIN GIVEN EARLIER EFFECTIVE FOR TREMORS, ANXIETY AND BILATERAL HIPS PAIN.
--- NOTE | 2020-02-01 20:50 | NUR ---
PT REFUSES PO ATIVAN AT THIS TIME AND STATES THAT SHE WANTS THE IV ATIVAN INSTEAD.
--- NOTE | 2020-02-01 21:08 | NUR ---
PT GIVEN ATIVAN 1 MG IV AT THIS TIME FOR C/O TREMORS AND ANXIETY. WILL MONITOR FOR EFFECTIVENESS. CALL LIGHT IN REACH.
[2020-02-01 21:19] VITALS: BP 121/72
--- NOTE | 2020-02-01 22:08 | NUR ---
ATIVAN EFFECTIVE PER PT.
--- NOTE | 2020-02-01 22:16 | NUR ---
ROBAXIN GIVEN FOR C/O MUSLCE ACHES. WILL MONITOR FOR EFFECTIVENESS. CALL LIGHT IN REACH.
--- NOTE | 2020-02-01 23:16 | NUR ---
ROBAXIN EFFECTIVE PER PT.
--- NOTE | 2020-02-01 23:26 | NUR ---
PO ATIVAN GIVEN FOR TREMORS. WILL MONITOR FOR EFFECTIVENESS.
[2020-02-02] VITALS: BP 127/68
--- NOTE | 2020-02-02 02:09 | NUR ---
IV ATIVAN GIVEN FOR C/O TREMORS/ANXIETY. WILL MONITOR FOR EFFECTIVENESS. CALL LIGHT IN REACH.
--- NOTE | 2020-02-02 03:09 | NUR ---
ATIVAN EFFECTIVE PER PT.
--- NOTE | 2020-02-02 03:23 | NUR ---
DR MAYS NOTIFIED THAT PT REQUESTING TORADOL FOR C/O HIP PAIN. PT STATES THAT SHE "HAS NOT BEEN MOVING AROUND MUCH USUAL, THEREFORE SHE HAS DEVELOPED PAIN". NEW ORDERS RECEIVED AT THIS TIME FOR PO MOTRIN. WILL MEDICATE WHEN AVAILABLE TO PULL.
[2020-02-02 06:37] LABS: BASO % 0.6 % (0.0-1.0); EOS # 0.2 10*3/uL (0.0-0.4); EOS % 3.3 % (1.0-4.0); HEMATOCRIT 32.7 % (37.0-47.0); HEMOGLOBIN 11.1 g/dl (12.0-16.0); LYMPH # 1.3 10*3/uL (1.3-4.4); MEAN CELL VOLUME 91.9 fl (81.0-99.0); MEAN CORPUSCULAR HGB 31.2 pg (27.0-31.0); MEAN CORPUSCULAR HGB CONC 33.9 g/dl (33.0-37.0); MEAN PLATELET VOLUME 11.6 fl (9.6-12.3); MONO # 0.4 10*3/uL (0.1-1.0); NEUT # 3.3 10*3/uL (2.3-7.9); NEUT % 63.9 % (47.0-73.0); PLATELET COUNT AUTOMATED 117 10*3/uL (130-400); RED BLOOD COUNT 3.56 10*6/uL (4.10-5.10); RED CELL DISTRI WIDTH 16.9 % (0-14.5); WHITE BLOOD COUNT 5.1 10*3/uL (4.8-10.8)
[2020-02-02 06:45] LABS: BUN 14 mg/dl (7-24); CHLORIDE 104 mmol/L (98-107); CREATININE 0.97 mg/dL (0.55-1.02); PHOSPHOROUS 3.6 mg/dL (2.5-4.9); POTASSIUM 3.8 mmol/L (3.5-5.1); SODIUM 136 mmol/L (136-145)
--- NOTE | 2020-02-02 07:17 | NUR ---
Shift chart check completed.
[2020-02-02 08:00] VITALS: BP 116/84; BP 122/60
--- NOTE | 2020-02-02 08:03 | NUR ---
PRN ROBAXIN & VISTARIL GIVEN FOR ANXIETY & MUSCLE SORENESS. PATIENT IS REQUESTING IV ATIVAN NOT PO BUT NURSE TOLD HER SHE CAN NOT GO HOME ON IV SO WE MUST START WITH THIS AND WORK UP - DR BOSWELL NOTIFIED THAT PATIENT LAST NIGHT REFUSED TO TAKE PO & ONLY WANTED IV.
--- NOTE | 2020-02-02 09:00 | NUR ---
case management visits with patient, she states she will be discharged to home today and denies any home needs
--- NOTE | 2020-02-02 09:21 | NUR ---
PATIENT AGAIN ASKING FOR IV ATIVAN - TOLD THAT SHE COULD HAVE PO AND SHE FINALLY AGREED TO TAKE IT.
[2020-02-02] MEDS ORDERED: METOPROLOL SUCC25 M2 PO (09:47)
[2020-02-02] MEDS ORDERED: CIPRO250 MG PO (09:47)
--- NOTE | 2020-02-02 10:05 | NUR ---
PO ATIVAN GIVEN ORIOR TO DISCHARGE
== END 2020-02-02 10:16 | disposition home or self-care (01) | DRG 775 ==
LOC: ED 20:52 → ICCU 23:26 → EDHOLD 23:26 → ICCU 23:26 → 4E 01-30 00:10 → ICCU 01-30 11:30 → 4E 02-01 13:55
PROVIDERS: Emergency Medicine; Internal Medicine; Student in an Organized Health Care Education/Training Program; ADMIT Internal Medicine
DX: F10.229 Alcohol dependence with intoxication, unspecified (principal); F10.231 Alcohol dependence with withdrawal delirium; K70.30 Alcoholic cirrhosis of liver without ascites; K72.90 Hepatic failure, unspecified without coma; I10 Essential (primary) hypertension; K86.0 Alcohol-induced chronic pancreatitis; E44.0 Moderate protein-calorie malnutrition; Y90.9 Presence of alcohol in blood, level not specified; E78.2 Mixed hyperlipidemia; K21.9 Gastro-esophageal reflux disease without esophagitis; F19.10 Other psychoactive substance abuse, uncomplicated; Z68.39 Body mass index [BMI] 39.0-39.9, adult; R73.9 Hyperglycemia, unspecified; E80.6 Other disorders of bilirubin metabolism; F31.9 Bipolar disorder, unspecified; N39.0 Urinary tract infection, site not specified; E83.42 Hypomagnesemia; E72.20 Disorder of urea cycle metabolism, unspecified; E87.1 Hypo-osmolality and hyponatremia; F17.210 Nicotine dependence, cigarettes, uncomplicated; Z88.1 Allergy status to other antibiotic agents; Z91.030 Bee allergy status; Z91.018 Allergy to other foods; Z83.3 Family history of diabetes mellitus; Z82.49 Family history of ischemic heart disease and other diseases of the circulatory system; Z80.49 Family history of malignant neoplasm of other genital organs; Z80.42 Family history of malignant neoplasm of prostate; Z83.6 Family history of other diseases of the respiratory system; Z82.0 Family history of epilepsy and other diseases of the nervous system; Z79.899 Other long term (current) drug therapy

== ENCOUNTER 2020-02-13 15:15 | Emergency (ER) | payer OTHER ==
[~2020-02-13] VITALS: Ht 162.5 cm; Wt 104.3 kg
[~2020-02-13 15:15] MED LIST changes: +CIPRO250 MG PO; +METOPROLOL SUCC25 M2 PO
[2020-02-13] MEDS ORDERED: PREDNISONE20 M1 PO (16:47)
== END 2020-02-13 17:02 | disposition home or self-care (01) ==
LOC: ED 15:15
DX: L30.9 Dermatitis, unspecified (principal); F41.9 Anxiety disorder, unspecified; F32.9 Major depressive disorder, single episode, unspecified; Z91.018 Allergy to other foods; Z91.030 Bee allergy status; Z88.8 Allergy status to other drugs, medicaments and biological substances; Z79.899 Other long term (current) drug therapy

== ENCOUNTER 2020-02-15 07:07 | Inpatient (IN) | payer OTHER ==
[~2020-02-15] VITALS: Ht 162.6 cm; Wt 111.6 kg
[~2020-02-15 07:07] MED LIST changes: +PREDNISONE20 M1 PO
[2020-02-15 07:28] VITALS: BP 140/75
[2020-02-15 08:36] LABS: BASO % 0.1 % (0.0-1.0); HEMATOCRIT 28.9 % (37.0-47.0); HEMOGLOBIN 10.2 g/dl (12.0-16.0); LYMPH # 3.1 10*3/uL (1.3-4.4); LYMPH % 23.1 % (27.0-41.0); MEAN CELL VOLUME 88.7 fl (81.0-99.0); MEAN CORPUSCULAR HGB 31.3 pg (27.0-31.0); MEAN CORPUSCULAR HGB CONC 35.3 g/dl (33.0-37.0); MEAN PLATELET VOLUME 11.7 fl (9.6-12.3); MONO # 0.9 10*3/uL (0.1-1.0); MONO % 6.9 % (3.0-9.0); NEUT # 9.4 10*3/uL (2.3-7.9); NEUT % 69.5 % (47.0-73.0); PLATELET COUNT AUTOMATED 212 10*3/uL (130-400); RED BLOOD COUNT 3.26 10*6/uL (4.10-5.10); RED CELL DISTRI WIDTH 19.8 % (0-14.5); WHITE BLOOD COUNT 13.5 10*3/uL (4.8-10.8)
[2020-02-15 08:49] LABS: ACT PARTIAL THROMBO TIME 30.9 SECONDS (20.0-32.1); INTERNATIONAL NORM RATIO 1.5 (2.0-3.5)
[2020-02-15 08:56] LABS: ALBUMIN 2.8 gm/dl (3.1-4.5); ALKALINE PHOSPHATASE 188 U/L (45-117); BUN 7 mg/dl (7-24); CHLORIDE 90 mmol/L (98-107); CREATININE 0.94 mg/dL (0.55-1.02); LIPASE 718 U/L (73-393); POTASSIUM 3.7 mmol/L (3.5-5.1); SGOT/AST 195 IU/L (3-35); SGPT/ALT 87 U/L (12-78); SODIUM 122 mmol/L (136-145); TOTAL PROTEIN 8.1 gm/dL (6.4-8.2)
[2020-02-15 08:58] LABS: BETA-HCG, QUANT < 1.0 mIU/mL (1-3)
[2020-02-15 10:40] VITALS: BP 153/94
[2020-02-15 10:40] LABS: BILIRUBIN NEGATIVE (NEGATIVE); CLARITY SL CLOUDY (CLEAR); COLOR YELLOW (YELLOW); GLUCOSE NEGATIVE (NEGATIVE); KETONE NEGATIVE (NEGATIVE)
[2020-02-15 10:41] LABS: BLOOD NEGATIVE (NEGATIVE); LEUKO ESTERASE NEGATIVE (NEGATIVE); NITRITE NEGATIVE (NEGATIVE); PH 6.5 (5.0-9.0); SPECIFIC GRAVITY 1.005 (1.005-1.030); UROBILINOGEN 0.2 E.U./dl (0.2-1.0)
[2020-02-15 10:43] LABS: EPITHELIAL CELLS TNTC; RBC 0-2 rbc/hpf (0-2)
[2020-02-15 12:00] VITALS: BP 149/67
[2020-02-15 14:42] LABS: BUN 6 mg/dl (7-24); CHLORIDE 93 mmol/L (98-107); CREATININE 0.82 mg/dL (0.55-1.02); POTASSIUM 3.6 mmol/L (3.5-5.1); SODIUM 123 mmol/L (136-145)
[2020-02-15 15:59] VITALS: BP 159/108
[2020-02-15] MEDS ORDERED: LOPRESSOR25 MG PO (16:46)
[2020-02-15 19:53] LABS: BUN 7 mg/dl (7-24); CHLORIDE 95 mmol/L (98-107); CREATININE 0.91 mg/dL (0.55-1.02); POTASSIUM 3.6 mmol/L (3.5-5.1); SODIUM 127 mmol/L (136-145)
[2020-02-15 20:00] VITALS: BP 125/70
[2020-02-16] VITALS: BP 128/68
[2020-02-16 04:00] VITALS: BP 129/87
[2020-02-16 05:33] LABS: ALBUMIN 2.6 gm/dl (3.1-4.5); ALKALINE PHOSPHATASE 189 U/L (45-117); BUN 8 mg/dl (7-24); CHLORIDE 105 mmol/L (98-107); CREATININE 0.78 mg/dL (0.55-1.02); POTASSIUM 3.9 mmol/L (3.5-5.1); SGOT/AST 213 IU/L (3-35); SGPT/ALT 89 U/L (12-78); TOTAL PROTEIN 7.4 gm/dL (6.4-8.2)
[2020-02-16 05:36] LABS: SODIUM 139 mmol/L (136-145)
[2020-02-16 06:08] LABS: BASO % 0.4 % (0.0-1.0); EOS % 0.1 % (1.0-4.0); HEMATOCRIT 29.1 % (37.0-47.0); LYMPH # 2.4 10*3/uL (1.3-4.4); LYMPH % 27.8 % (27.0-41.0); MEAN CELL VOLUME 90.1 fl (81.0-99.0); MEAN CORPUSCULAR HGB CONC 34.4 g/dl (33.0-37.0); MONO # 0.7 10*3/uL (0.1-1.0); MONO % 8.3 % (3.0-9.0); NEUT # 5.4 10*3/uL (2.3-7.9); NEUT % 63.2 % (47.0-73.0); PLATELET COUNT AUTOMATED 163 10*3/uL (130-400); RED BLOOD COUNT 3.23 10*6/uL (4.10-5.10); RED CELL DISTRI WIDTH 20.1 % (0-14.5); WHITE BLOOD COUNT 8.5 10*3/uL (4.8-10.8)
[2020-02-16 08:00] VITALS: BP 139/84
[2020-02-16 12:00] VITALS: BP 133/71
[2020-02-16 16:15] LABS: BUN 9 mg/dl (7-24); CHLORIDE 102 mmol/L (98-107); CREATININE 0.92 mg/dL (0.55-1.02); POTASSIUM 3.6 mmol/L (3.5-5.1); SODIUM 133 mmol/L (136-145)
== END 2020-02-16 17:12 | disposition home or self-care (01) | DRG 775 ==
LOC: ED 07:07 → ICCU 09:19 → EDHOLD 09:19 → ICCU 09:44
PROVIDERS: Emergency Medicine; Internal Medicine; Student in an Organized Health Care Education/Training Program; ADMIT Internal Medicine
DX: F10.239 Alcohol dependence with withdrawal, unspecified (principal); F10.229 Alcohol dependence with intoxication, unspecified; E87.1 Hypo-osmolality and hyponatremia; R65.10 Systemic inflammatory response syndrome (SIRS) of non-infectious origin without acute organ dysfunction; E87.2 Acidosis; D64.9 Anemia, unspecified; K70.10 Alcoholic hepatitis without ascites; K86.0 Alcohol-induced chronic pancreatitis; Y90.9 Presence of alcohol in blood, level not specified; I10 Essential (primary) hypertension; E80.6 Other disorders of bilirubin metabolism; F41.1 Generalized anxiety disorder; E78.5 Hyperlipidemia, unspecified; K21.9 Gastro-esophageal reflux disease without esophagitis; F17.210 Nicotine dependence, cigarettes, uncomplicated; F31.9 Bipolar disorder, unspecified; L30.9 Dermatitis, unspecified; R74.8 Abnormal levels of other serum enzymes; D68.9 Coagulation defect, unspecified; E87.8 Other disorders of electrolyte and fluid balance, not elsewhere classified; E43 Unspecified severe protein-calorie malnutrition; Z68.41 Body mass index [BMI] 40.0-44.9, adult; Z82.0 Family history of epilepsy and other diseases of the nervous system; Z80.49 Family history of malignant neoplasm of other genital organs; Z80.42 Family history of malignant neoplasm of prostate; Z83.3 Family history of diabetes mellitus; Z83.6 Family history of other diseases of the respiratory system; Z82.49 Family history of ischemic heart disease and other diseases of the circulatory system; Z88.1 Allergy status to other antibiotic agents; Z91.030 Bee allergy status; Z91.018 Allergy to other foods; Z79.899 Other long term (current) drug therapy

== ENCOUNTER 2020-02-27 02:54 | Inpatient (IN) | payer OTHER ==
[2020-02-27] VITALS (8 sets, daily range): BP systolic 134–158; BP diastolic 59–96
[~2020-02-27] VITALS: Ht 162.6 cm; Wt 118.6 kg
[~2020-02-27 02:54] MED LIST changes: +LOPRESSOR25 MG PO
[2020-02-27 03:48] LABS: BASO # 0.1 10*3/uL (0.0-0.1); BASO % 0.9 % (0.0-1.0); EOS % 0.3 % (1.0-4.0); HEMATOCRIT 28.3 % (37.0-47.0); HEMOGLOBIN 10.1 g/dl (12.0-16.0); LYMPH # 2.5 10*3/uL (1.3-4.4); LYMPH % 33.2 % (27.0-41.0); MEAN CELL VOLUME 88.4 fl (81.0-99.0); MEAN CORPUSCULAR HGB 31.6 pg (27.0-31.0); MEAN CORPUSCULAR HGB CONC 35.7 g/dl (33.0-37.0); MEAN PLATELET VOLUME 12.4 fl (9.6-12.3); MONO # 0.8 10*3/uL (0.1-1.0); MONO % 10.3 % (3.0-9.0); NEUT # 4.2 10*3/uL (2.3-7.9); PLATELET COUNT AUTOMATED 304 10*3/uL (130-400); RED CELL DISTRI WIDTH 20.9 % (0-14.5); WHITE BLOOD COUNT 7.6 10*3/uL (4.8-10.8)
[2020-02-27 04:06] LABS: SGPT/ALT 75 U/L (12-78)
[2020-02-27 04:10] LABS: BILIRUBIN NEGATIVE (NEGATIVE); BLOOD NEGATIVE (NEGATIVE); CLARITY SL CLOUDY (CLEAR); COLOR YELLOW (YELLOW); GLUCOSE NEGATIVE (NEGATIVE); KETONE NEGATIVE (NEGATIVE); SPECIFIC GRAVITY 1.005 (1.005-1.030)
[2020-02-27 04:10] LABS: ALBUMIN 2.6 gm/dl (3.1-4.5); ALKALINE PHOSPHATASE 201 U/L (45-117); CHLORIDE 88 mmol/L (98-107); CREATININE 0.85 mg/dL (0.55-1.02); SGOT/AST 164 IU/L (3-35)
[2020-02-27 04:11] LABS: BUN 7 mg/dl (7-24)
[2020-02-27 04:11] LABS: LEUKO ESTERASE NEGATIVE (NEGATIVE); NITRITE NEGATIVE (NEGATIVE); UROBILINOGEN 0.2 E.U./dl (0.2-1.0)
[2020-02-27 04:13] LABS: POTASSIUM 4.6 mmol/L (3.5-5.1)
[2020-02-27 04:14] LABS: SODIUM 119 mmol/L (136-145)
[2020-02-27 04:14] LABS: URINE AMPHETAMINES < 1000 (1000ng/ml); URINE BARBITURATES > 200 (200ng/ml); URINE BENZODIAZEPINES < 200 (200ng/ml); URINE CANNABINOIDS (THC) < 50 (50ng/ml); URINE COCAINE < 300 (300ng/ml); URINE METHADONE < 300 (300ng/ml); URINE OPIATES < 300 (300ng/ml); URINE PHENCYCLIDINE < 25 (25ng/ml)
[2020-02-27 04:19] LABS: BACTERIA 1+; WBC 0-2 wbc/hpf (0-5)
[2020-02-27 07:06] LABS: BUN 7 mg/dl (7-24); CHLORIDE 87 mmol/L (98-107); CREATININE 0.83 mg/dL (0.55-1.02); POTASSIUM 4.7 mmol/L (3.5-5.1)
[2020-02-27 07:12] LABS: SODIUM 117 mmol/L (136-145)
[2020-02-27 09:43] LABS: ABG BASE EXCESS -2.5 mmol/L (-2.0-2.0); ARTERIAL BLOOD GAS PH 7.446 (7.35-7.45)
[2020-02-27 12:44] LABS: URINE CHLORIDE, RANDOM < 10 mmol/L
[2020-02-27 16:08] LABS: BUN 5 mg/dl (7-24); CHLORIDE 86 mmol/L (98-107); CREATININE 0.75 mg/dL (0.55-1.02); POTASSIUM 4.3 mmol/L (3.5-5.1)
[2020-02-27 16:11] LABS: SODIUM 117 mmol/L (136-145)
[2020-02-27 22:24] LABS: BUN 4 mg/dl (7-24); CHLORIDE 90 mmol/L (98-107); CREATININE 0.77 mg/dL (0.55-1.02); POTASSIUM 4.2 mmol/L (3.5-5.1)
[2020-02-27 22:52] LABS: SODIUM 119 mmol/L (136-145)
[2020-02-28] VITALS: BP 124/81
[2020-02-28 06:37] LABS: BUN 4 mg/dl (7-24); CHLORIDE 90 mmol/L (98-107); CREATININE 0.74 mg/dL (0.55-1.02); POTASSIUM 3.8 mmol/L (3.5-5.1)
[2020-02-28 06:39] LABS: ALBUMIN 2.5 gm/dl (3.1-4.5); BUN 4 mg/dl (7-24); CHLORIDE 90 mmol/L (98-107); POTASSIUM 3.9 mmol/L (3.5-5.1); SODIUM 121 mmol/L (136-145)
[2020-02-28 06:42] LABS: ALKALINE PHOSPHATASE 180 U/L (45-117); PHOSPHOROUS 2.2 mg/dL (2.5-4.9); SGOT/AST 178 IU/L (3-35); SGPT/ALT 80 U/L (12-78); TOTAL PROTEIN 6.7 gm/dL (6.4-8.2)
[2020-02-28 06:43] LABS: SODIUM 119 mmol/L (136-145)
[2020-02-28 06:57] LABS: HEMATOCRIT 26.6 % (37.0-47.0); HEMOGLOBIN 9.3 g/dl (12.0-16.0); MEAN CELL VOLUME 88.7 fl (81.0-99.0); MEAN PLATELET VOLUME 11.7 fl (9.6-12.3); WHITE BLOOD COUNT 9.9 10*3/uL (4.8-10.8)
[2020-02-28 07:10] LABS: PLATELET COUNT AUTOMATED 197 10*3/uL (130-400)
[2020-02-28 07:25] LABS: BASOPHILS 2 % (0-1); POLYCHROMASIA SLIGHT; TOTAL CELLS COUNTED 100 #CELLS
[2020-02-28 07:27] LABS: MICROCYTOSIS SLIGHT; PLATELET SUFFICIENCY NORMAL (NORMAL); TARGET CELLS FEW
[2020-02-28 08:00] VITALS: BP 124/74
[2020-02-28 08:25] LABS: BUN 4 mg/dl (7-24); CHLORIDE 91 mmol/L (98-107); CREATININE 0.74 mg/dL (0.55-1.02); POTASSIUM 3.9 mmol/L (3.5-5.1); SODIUM 121 mmol/L (136-145)
[2020-02-28 08:43] LABS: ACT PARTIAL THROMBO TIME 33.7 SECONDS (20.0-32.1); INTERNATIONAL NORM RATIO 1.2 (2.0-3.5)
[2020-02-28 12:00] VITALS: BP 111/63
[2020-02-28 12:04] LABS: ABG BASE EXCESS -0.8 mmol/L (-2.0-2.0); ARTERIAL BLOOD GAS PH 7.449 (7.35-7.45)
[2020-02-28 16:00] VITALS: BP 145/92
[2020-02-28 16:24] LABS: BUN 5 mg/dl (7-24); CHLORIDE 96 mmol/L (98-107); CREATININE 0.92 mg/dL (0.55-1.02); POTASSIUM 4.2 mmol/L (3.5-5.1); SODIUM 125 mmol/L (136-145)
[2020-02-28 20:00] VITALS: BP 122/74
[2020-02-28 22:56] LABS: BUN 5 mg/dl (7-24); CHLORIDE 97 mmol/L (98-107); CREATININE 1.02 mg/dL (0.55-1.02); POTASSIUM 4.3 mmol/L (3.5-5.1); SODIUM 127 mmol/L (136-145)
[2020-02-29] VITALS: BP 141/87
[2020-02-29 04:50] LABS: BUN 5 mg/dl (7-24); CHLORIDE 95 mmol/L (98-107); CREATININE 0.91 mg/dL (0.55-1.02); POTASSIUM 4.1 mmol/L (3.5-5.1); SODIUM 126 mmol/L (136-145)
[2020-02-29 04:54] LABS: ALBUMIN 2.6 gm/dl (3.1-4.5); BILIRUBIN, DIRECT 4.5 mg/dL (0.0-0.2); TOTAL PROTEIN 6.9 gm/dL (6.4-8.2)
[2020-03-01 07:07] LABS: HEP B CORE AB, IGM Negative (Negative); HEPATITIS B SURFACE AG Negative (Negative)
[2020-03-01 08:12] LABS: HEPATITIS C VIRUS ANTIBODY >11.0 s/co (0.0-0.9)
== END 2020-02-29 06:07 | disposition left against medical advice (07) | DRG 426 ==
LOC: ED 02:54 → EDHOLD 04:51 → 4E 04:51
PROVIDERS: Emergency Medicine; Internal Medicine; Internal Medicine Nephrology; Registered Nurse; ADMIT Internal Medicine
DX: E87.1 Hypo-osmolality and hyponatremia (principal); F10.229 Alcohol dependence with intoxication, unspecified; F10.239 Alcohol dependence with withdrawal, unspecified; E87.8 Other disorders of electrolyte and fluid balance, not elsewhere classified; E83.42 Hypomagnesemia; E43 Unspecified severe protein-calorie malnutrition; E80.6 Other disorders of bilirubin metabolism; R65.10 Systemic inflammatory response syndrome (SIRS) of non-infectious origin without acute organ dysfunction; K70.30 Alcoholic cirrhosis of liver without ascites; F19.10 Other psychoactive substance abuse, uncomplicated; F17.210 Nicotine dependence, cigarettes, uncomplicated; K21.9 Gastro-esophageal reflux disease without esophagitis; E78.5 Hyperlipidemia, unspecified; F41.1 Generalized anxiety disorder; G47.30 Sleep apnea, unspecified; F32.9 Major depressive disorder, single episode, unspecified; I10 Essential (primary) hypertension; E66.01 Morbid (severe) obesity due to excess calories; Y90.9 Presence of alcohol in blood, level not specified; R56.9 Unspecified convulsions; E87.2 Acidosis; B19.20 Unspecified viral hepatitis C without hepatic coma; K86.1 Other chronic pancreatitis; Z91.19 Patient's noncompliance with other medical treatment and regimen; Z68.41 Body mass index [BMI] 40.0-44.9, adult; Z88.1 Allergy status to other antibiotic agents; Z91.030 Bee allergy status; Z91.018 Allergy to other foods; Z79.899 Other long term (current) drug therapy; Z82.49 Family history of ischemic heart disease and other diseases of the circulatory system; Z83.3 Family history of diabetes mellitus; Z80.42 Family history of malignant neoplasm of prostate; Z80.49 Family history of malignant neoplasm of other genital organs; Z82.0 Family history of epilepsy and other diseases of the nervous system; Z83.6 Family history of other diseases of the respiratory system; Z53.29 Procedure and treatment not carried out because of patient's decision for other reasons

== ENCOUNTER 2020-03-15 15:53 | Inpatient (IN) | payer OTHER ==
[~2020-03-15] VITALS: Ht 162.5 cm; Wt 115.8 kg
[2020-03-15 15:57] VITALS: BP 151/93
--- NOTE | 2020-03-15 16:31 | NUR ---
Pt attempted to provide urine sample at this time, Pt unable to provide sample, Pt provided ice chips, Pt in bed talking on cell phone, side rails up x2, call light provided.
[2020-03-15 16:55] LABS: ALBUMIN 2.5 gm/dl (3.1-4.5); ALKALINE PHOSPHATASE 141 U/L (45-117); BUN 3 mg/dl (7-24); CHLORIDE 95 mmol/L (98-107); CREATININE 0.75 mg/dL (0.55-1.02); POTASSIUM 4.2 mmol/L (3.5-5.1); SGOT/AST 144 IU/L (3-35); SGPT/ALT 67 U/L (12-78); SODIUM 123 mmol/L (136-145); TOTAL PROTEIN 7.3 gm/dL (6.4-8.2)
[2020-03-15 17:18] LABS: BASO # 0.1 10*3/uL (0.0-0.1); BASO % 1.3 % (0.0-1.0); EOS % 0.5 % (1.0-4.0); HEMATOCRIT 28.1 % (37.0-47.0); LYMPH # 3.3 10*3/uL (1.3-4.4); LYMPH % 38.6 % (27.0-41.0); MEAN CELL VOLUME 91.2 fl (81.0-99.0); MEAN CORPUSCULAR HGB 30.5 pg (27.0-31.0); MEAN CORPUSCULAR HGB CONC 33.5 g/dl (33.0-37.0); MEAN PLATELET VOLUME 10.5 fl (9.6-12.3); MONO # 0.8 10*3/uL (0.1-1.0); MONO % 9.6 % (3.0-9.0); NEUT # 4.2 10*3/uL (2.3-7.9); NEUT % 49.8 % (47.0-73.0); PLATELET COUNT AUTOMATED 237 10*3/uL (130-400); RED BLOOD COUNT 3.08 10*6/uL (4.10-5.10); RED CELL DISTRI WIDTH 18.7 % (0-14.5); WHITE BLOOD COUNT 8.5 10*3/uL (4.8-10.8)
[2020-03-15 17:30] LABS: ACT PARTIAL THROMBO TIME 35.2 SECONDS (20.0-32.1); INTERNATIONAL NORM RATIO 1.3 (2.0-3.5)
[2020-03-15 17:42] LABS: PHOSPHOROUS 2.6 mg/dL (2.5-4.9)
[2020-03-15 17:43] LABS: TROPONIN I < 0.015 ng/ml (<0.045)
[2020-03-15 18:07] LABS: BUN 3 mg/dl (7-24); CHLORIDE 95 mmol/L (98-107); CREATININE 0.73 mg/dL (0.55-1.02); POTASSIUM 3.9 mmol/L (3.5-5.1); SODIUM 124 mmol/L (136-145)
--- NOTE | 2020-03-15 18:53 | NUR ---
Pt stated that she is still unable to provide urine sample at this time.
--- NOTE | 2020-03-15 19:02 | NUR ---
Pt assisted to bedside at this time.
[2020-03-15 19:09] LABS: BILIRUBIN NEGATIVE (NEGATIVE); BLOOD NEGATIVE (NEGATIVE); CLARITY CLEAR (CLEAR); COLOR YELLOW (YELLOW); GLUCOSE NEGATIVE (NEGATIVE); KETONE NEGATIVE (NEGATIVE); NITRITE NEGATIVE (NEGATIVE); PH 6.5 (5.0-9.0); SPECIFIC GRAVITY 1.005 (1.005-1.030); UROBILINOGEN 0.2 E.U./dl (0.2-1.0)
[2020-03-15 19:11] LABS: LEUKO ESTERASE NEGATIVE (NEGATIVE)
[2020-03-15 19:16] LABS: EPITHELIAL CELLS 41-50; URINE AMPHETAMINES < 1000 (1000ng/ml); URINE BARBITURATES > 200 (200ng/ml); URINE BENZODIAZEPINES < 200 (200ng/ml); URINE CANNABINOIDS (THC) < 50 (50ng/ml); URINE COCAINE < 300 (300ng/ml); URINE METHADONE < 300 (300ng/ml); URINE OPIATES < 300 (300ng/ml); URINE PHENCYCLIDINE < 25 (25ng/ml)
[2020-03-15 19:17] LABS: BACTERIA 1+
[2020-03-15 19:22] VITALS: BP 140/62
--- NOTE | 2020-03-15 19:50 | NUR ---
Pt resting quietly in bed at this time, provide ice chips per Pt request.
--- NOTE | 2020-03-15 20:01 | NUR ---
Notifed by materials management clerk, Pt will be going to room 409, stated that the rooom is occupied at this time, stated that the nurse will call when the floor is ready for the Pt.
--- NOTE | 2020-03-15 20:35 | NUR ---
Pt assisted to be repositioned on her left side, call light within reach.
[2020-03-15 21:20] VITALS: BP 149/89
--- NOTE | 2020-03-15 21:20 | NUR ---
A 39, admitted to , under the services of CYNDY Butterfield DO with a diagnosis of ETOH INTOXICATION. Chief complaint is PATIENT CAME IN WITH ALCOHOL INTOXICATION. Patient arrived via stretcher from ER. Monitor applied. Initial assessment completed. Vital signs taken and recorded. CYNDY BUTTERFIELD DO notified of admission to the unit. Orders received. See assessment for past medical history, medications and allergies. Patient and/or family oriented to unit. [facility] visitation policy reviewed. Clothing/patient valuable form completed. ADELIA JACKSON
[2020-03-15 23:14] LABS: BUN 4 mg/dl (7-24); CHLORIDE 96 mmol/L (98-107); CREATININE 0.76 mg/dL (0.55-1.02); POTASSIUM 3.9 mmol/L (3.5-5.1); SODIUM 125 mmol/L (136-145)
[2020-03-15] MEDS ORDERED: EFFEXOR XR150 M1 PO (23:18)
[2020-03-15] MEDS ORDERED: BUSPAR15 MG PO (23:19)
[2020-03-15] MEDS ORDERED: LISINOPRIL40 MG PO (23:19)
[2020-03-15] MEDS ORDERED: OMEPRAZOLE40 MG PO (23:19)
[2020-03-16] VITALS: BP 133/71
--- NOTE | 2020-03-16 00:53 | NUR ---
PATIENT UP TO BATHROOM ; HR INCREASED TO 140'S PATIENT NOW BACK IN BED. HR HANGING AROUND [address] ESPINOZA NOTIFIED. WILL CONTINUE TO MONITOR.
--- NOTE | 2020-03-16 01:07 | NUR ---
PATIENT MEDICATED WITH VISTARIL AND ZOFRAN PER 0RN ORDER AND PATIENT REQUEST FOR C/O ANXIETY AND NAUSEA. SEE EMAR. REINFORCED USE OF CALL LIGHT.
--- NOTE | 2020-03-16 02:30 | NUR ---
PATIENT RESTING QUIETLY. MEDICATION APPEARS EFFECTIVE.
[2020-03-16 06:01] LABS: BUN 3 mg/dl (7-24); CHLORIDE 102 mmol/L (98-107); CREATININE 0.59 mg/dL (0.55-1.02); POTASSIUM 3.9 mmol/L (3.5-5.1); SODIUM 130 mmol/L (136-145)
[2020-03-16 06:02] LABS: BASO # 0.1 10*3/uL (0.0-0.1); BASO % 1.4 % (0.0-1.0); EOS # 0.1 10*3/uL (0.0-0.4); HEMATOCRIT 26.9 % (37.0-47.0); LYMPH # 2.1 10*3/uL (1.3-4.4); LYMPH % 41.3 % (27.0-41.0); MEAN CELL VOLUME 91.8 fl (81.0-99.0); MEAN CORPUSCULAR HGB 30.4 pg (27.0-31.0); MEAN CORPUSCULAR HGB CONC 33.1 g/dl (33.0-37.0); MEAN PLATELET VOLUME 11.1 fl (9.6-12.3); MONO # 0.8 10*3/uL (0.1-1.0); MONO % 15.4 % (3.0-9.0); NEUT # 2.1 10*3/uL (2.3-7.9); NEUT % 40.7 % (47.0-73.0); PLATELET COUNT AUTOMATED 200 10*3/uL (130-400); RED BLOOD COUNT 2.93 10*6/uL (4.10-5.10); RED CELL DISTRI WIDTH 18.6 % (0-14.5); WHITE BLOOD COUNT 5.1 10*3/uL (4.8-10.8)
--- NOTE | 2020-03-16 06:27 | NUR ---
SPOKE WITH CORNELIO AT [facility] TO NOTIFY OF CONSULY OF CONSULT FOR .MESSAGE LEFT FOR CONSULT.
--- NOTE | 2020-03-16 07:30 | NUR ---
PT UP TO BATHROOM AT THIS TIME WITH ASSISTANCE, PLEASANT, ALERT AND ORIENTED, ANSWERING QUESTIONS APPROPRIATELY. PT STATES THAT SHE IS GOING TO ORDER BREAKFAST. BODY ALARM IN PLACE ONCE PT RETURNS TO BED. NO S/S OF DISTRESS NOTED AT THIS TIME. RESPIRATIONS UNLABORED. CALL LIGHT IN REACH.
[2020-03-16 08:00] VITALS: BP 148/88
--- NOTE | 2020-03-16 08:30 | NUR ---
Tests Superintendent spoke to patient via phone. Patient states lives at home with her boyfriend, Daniel. There are 7 steps in the home. Physician: Dr. Gabriel Pereira [facility] Home health services: none Patient's level of ADLs: INDEPENDENT Patient has working utilities: yes DME: none Follow-up physician's appointment after d/c: will be made by the hospitalist nurse director upon discharge Does patient want to access PORTAL?: no Discharge plan discussed with patient. She lives at home with her boyfriend. She is independent in her ADLs and ambulation. Discussed home health care services and she denies any home needs. When medically stable she will be discharged to home. She states her boyfriend, Daniel, will provide transportation on discharge. FELICE STANFORD
[2020-03-16 09:05] VITALS: BP 128/78
--- NOTE | 2020-03-16 11:25 | NUR ---
PT GIVEN ATIVAN VIA IV AND ZOFRAN VIA IV FOR C/O NAUSEA AND TREMORS D/T ALCOHOL WITHDRAWAL. WILL MONITOR FOR EFFECTIVENESS. PT RESTING IN BED. ALL SAFETY MEASURES IN PLACE, CALL LIGHT IN REACH.
--- NOTE | 2020-03-16 12:00 | NUR ---
PT STATES THAT ATIVAN AND ZOFRAN ARE EFFECTIVE.
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
--- NOTE | 2020-03-16 12:10 | NUR ---
Patient signed out AMA. Patient encouraged to stay and advised of possible consequences of premature discharge. Physician DR STOUT and dimension warehouse supervisor SHARON LEUNG notified. Patient instructed what to do regarding care post-departure from the hospital; emergency phone numbers provided. Patent was accompanied by PATIENT ATTENDANT TO ED PARKING LOT WHERE PT RIDE IS WAITING.. LANA COREAS
== END 2020-03-16 12:57 | disposition left against medical advice (07) | DRG 426 ==
LOC: ED 15:53 → EDHOLD 19:07 → 4E 19:07
PROVIDERS: Family Medicine; Internal Medicine; Podiatrist Foot & Ankle Surgery; ADMIT Internal Medicine
DX: E87.1 Hypo-osmolality and hyponatremia (principal); F10.129 Alcohol abuse with intoxication, unspecified; D64.9 Anemia, unspecified; E87.8 Other disorders of electrolyte and fluid balance, not elsewhere classified; R73.9 Hyperglycemia, unspecified; E80.6 Other disorders of bilirubin metabolism; B19.20 Unspecified viral hepatitis C without hepatic coma; E78.5 Hyperlipidemia, unspecified; K21.9 Gastro-esophageal reflux disease without esophagitis; K70.10 Alcoholic hepatitis without ascites; I10 Essential (primary) hypertension; K86.1 Other chronic pancreatitis; F19.10 Other psychoactive substance abuse, uncomplicated; F31.9 Bipolar disorder, unspecified; G47.30 Sleep apnea, unspecified; K70.30 Alcoholic cirrhosis of liver without ascites; F41.1 Generalized anxiety disorder; R74.0 Nonspecific elevation of levels of transaminase and lactic acid dehydrogenase [LDH]; F43.10 Post-traumatic stress disorder, unspecified; E43 Unspecified severe protein-calorie malnutrition; F60.9 Personality disorder, unspecified; Z53.29 Procedure and treatment not carried out because of patient's decision for other reasons; E66.01 Morbid (severe) obesity due to excess calories; F17.210 Nicotine dependence, cigarettes, uncomplicated; Z71.6 Tobacco abuse counseling; Z88.1 Allergy status to other antibiotic agents; Z91.030 Bee allergy status; Z91.018 Allergy to other foods; Z81.3 Family history of other psychoactive substance abuse and dependence; Z80.42 Family history of malignant neoplasm of prostate; Z83.3 Family history of diabetes mellitus; Z82.5 Family history of asthma and other chronic lower respiratory diseases; Z82.49 Family history of ischemic heart disease and other diseases of the circulatory system; Z82.0 Family history of epilepsy and other diseases of the nervous system; Z80.8 Family history of malignant neoplasm of other organs or systems; Z79.899 Other long term (current) drug therapy; Z68.41 Body mass index [BMI] 40.0-44.9, adult

== ENCOUNTER 2020-03-21 14:47 | Emergency (ER) | payer OTHER ==
[~2020-03-21] VITALS: Ht 162.5 cm; Wt 113.4 kg
[~2020-03-21 14:47] MED LIST changes: +BUSPAR15 MG PO; +LISINOPRIL40 MG PO
[2020-03-21 15:49] LABS: BASO # 0.1 10*3/uL (0.0-0.1); BASO % 0.9 % (0.0-1.0); EOS # 0.1 10*3/uL (0.0-0.4); EOS % 1.7 % (1.0-4.0); HEMATOCRIT 27.6 % (37.0-47.0); LYMPH # 2.7 10*3/uL (1.3-4.4); LYMPH % 38.1 % (27.0-41.0); MEAN CELL VOLUME 92.9 fl (81.0-99.0); MEAN CORPUSCULAR HGB CONC 33.3 g/dl (33.0-37.0); MEAN PLATELET VOLUME 10.6 fl (9.6-12.3); MONO # 0.7 10*3/uL (0.1-1.0); MONO % 10.3 % (3.0-9.0); NEUT # 3.4 10*3/uL (2.3-7.9); NEUT % 48.9 % (47.0-73.0); PLATELET COUNT AUTOMATED 206 10*3/uL (130-400); RED BLOOD COUNT 2.97 10*6/uL (4.10-5.10); RED CELL DISTRI WIDTH 18.6 % (0-14.5)
[2020-03-21 16:00] LABS: ACT PARTIAL THROMBO TIME 30.1 SECONDS (20.0-32.1); INTERNATIONAL NORM RATIO 1.3 (2.0-3.5)
[2020-03-21 16:03] LABS: ALBUMIN 2.4 gm/dl (3.1-4.5); ALKALINE PHOSPHATASE 171 U/L (45-117); BUN 7 mg/dl (7-24); CHLORIDE 100 mmol/L (98-107); CREATININE 0.94 mg/dL (0.55-1.02); SGOT/AST 98 IU/L (3-35); SGPT/ALT 50 U/L (12-78); SODIUM 130 mmol/L (136-145); TOTAL PROTEIN 6.9 gm/dL (6.4-8.2)
[2020-03-21 16:09] LABS: B-hCG (QUALITATIVE) NEGATIVE (NEGATIVE)
== END 2020-03-21 17:30 | disposition left against medical advice (07) ==
LOC: ED 14:47
PROVIDERS: Emergency Medicine
DX: F10.129 Alcohol abuse with intoxication, unspecified (principal); F31.9 Bipolar disorder, unspecified; I10 Essential (primary) hypertension; K21.9 Gastro-esophageal reflux disease without esophagitis; E78.5 Hyperlipidemia, unspecified; E66.01 Morbid (severe) obesity due to excess calories; F41.9 Anxiety disorder, unspecified; F17.200 Nicotine dependence, unspecified, uncomplicated; Z91.030 Bee allergy status; Z88.8 Allergy status to other drugs, medicaments and biological substances; Z91.018 Allergy to other foods; Y90.8 Blood alcohol level of 240 mg/100 ml or more

== ENCOUNTER 2020-03-23 17:53 | Emergency (ER) | payer OTHER ==
[~2020-03-23] VITALS: Ht 162.5 cm; Wt 108.9 kg
[2020-03-23 18:53] LABS: BASO # 0.1 10*3/uL (0.0-0.1); BASO % 0.9 % (0.0-1.0); EOS # 0.1 10*3/uL (0.0-0.4); EOS % 0.7 % (1.0-4.0); HEMATOCRIT 32.5 % (37.0-47.0); LYMPH # 3.4 10*3/uL (1.3-4.4); LYMPH % 39.2 % (27.0-41.0); MEAN CELL VOLUME 92.3 fl (81.0-99.0); MEAN CORPUSCULAR HGB 30.1 pg (27.0-31.0); MEAN CORPUSCULAR HGB CONC 32.6 g/dl (33.0-37.0); MEAN PLATELET VOLUME 10.3 fl (9.6-12.3); MONO # 1.2 10*3/uL (0.1-1.0); MONO % 13.6 % (3.0-9.0); NEUT # 3.9 10*3/uL (2.3-7.9); NEUT % 45.4 % (47.0-73.0); PLATELET COUNT AUTOMATED 258 10*3/uL (130-400); RED BLOOD COUNT 3.52 10*6/uL (4.10-5.10); RED CELL DISTRI WIDTH 18.9 % (0-14.5); WHITE BLOOD COUNT 8.6 10*3/uL (4.8-10.8)
[2020-03-23 19:02] LABS: INTERNATIONAL NORM RATIO 1.2 (2.0-3.5)
[2020-03-23 19:19] LABS: ALBUMIN 2.5 gm/dl (3.1-4.5); ALKALINE PHOSPHATASE 168 U/L (45-117); BUN 8 mg/dl (7-24); CHLORIDE 102 mmol/L (98-107); CREATININE 1.07 mg/dL (0.55-1.02); POTASSIUM 4.3 mmol/L (3.5-5.1); SGOT/AST 142 IU/L (3-35); SGPT/ALT 66 U/L (12-78); SODIUM 133 mmol/L (136-145); TOTAL PROTEIN 7.6 gm/dL (6.4-8.2)
[2020-03-23 19:41] LABS: BILIRUBIN NEGATIVE (NEGATIVE); BLOOD NEGATIVE (NEGATIVE); CLARITY CLEAR (CLEAR); COLOR YELLOW (YELLOW); GLUCOSE NEGATIVE (NEGATIVE); KETONE NEGATIVE (NEGATIVE); URINE AMPHETAMINES < 1000 (1000ng/ml); URINE BARBITURATES > 200 (200ng/ml); URINE BENZODIAZEPINES < 200 (200ng/ml); URINE CANNABINOIDS (THC) < 50 (50ng/ml); URINE COCAINE < 300 (300ng/ml); URINE METHADONE < 300 (300ng/ml); URINE OPIATES < 300 (300ng/ml)
[2020-03-23 19:42] LABS: BACTERIA 1+; EPITHELIAL CELLS TNTC; LEUKO ESTERASE TRACE (NEGATIVE); NITRITE NEGATIVE (NEGATIVE); UROBILINOGEN 0.2 E.U./dl (0.2-1.0); WBC 0-2 wbc/hpf (0-5)
[2020-03-23 19:44] LABS: URINE PHENCYCLIDINE < 25 (25ng/ml)
[2020-03-23] MEDS ORDERED: 'CLONIDINE0.1 MG PO (21:13)
[2020-03-23] MEDS ORDERED: DAILY VITE1 EACH PO (21:14)
== END 2020-03-23 22:51 | disposition short-term general hospital (02) ==
LOC: ED 17:53
PROVIDERS: Nurse Practitioner
DX: S02.85XA Fracture of orbit, unspecified, initial encounter for closed fracture (principal); S02.2XXA Fracture of nasal bones, initial encounter for closed fracture; F10.129 Alcohol abuse with intoxication, unspecified; Z91.030 Bee allergy status; Z91.018 Allergy to other foods; Z88.8 Allergy status to other drugs, medicaments and biological substances; Z79.899 Other long term (current) drug therapy; W19.XXXA Unspecified fall, initial encounter; Y93.89 Activity, other specified; Y92.89 Other specified places as the place of occurrence of the external cause; Y99.8 Other external cause status; Y90.8 Blood alcohol level of 240 mg/100 ml or more

== ENCOUNTER 2020-03-31 05:24 | Emergency (ER) | payer OTHER ==
[~2020-03-31 05:24] MED LIST changes: +DAILY VITE1 EACH PO
[2020-03-31 05:54] LABS: BILIRUBIN NEGATIVE (NEGATIVE); BLOOD NEGATIVE (NEGATIVE); CLARITY CLEAR (CLEAR); COLOR STRAW (YELLOW); GLUCOSE NEGATIVE (NEGATIVE); KETONE NEGATIVE (NEGATIVE); NITRITE NEGATIVE (NEGATIVE); PH 7.5 (5.0-9.0); SPECIFIC GRAVITY 1.005 (1.005-1.030); UROBILINOGEN 0.2 E.U./dl (0.2-1.0)
[2020-03-31 05:55] LABS: LEUKO ESTERASE TRACE (NEGATIVE)
[2020-03-31 06:01] LABS: URINE AMPHETAMINES < 1000 (1000ng/ml); URINE BARBITURATES > 200 (200ng/ml); URINE BENZODIAZEPINES < 200 (200ng/ml); URINE CANNABINOIDS (THC) < 50 (50ng/ml); URINE COCAINE < 300 (300ng/ml); URINE METHADONE < 300 (300ng/ml); URINE OPIATES < 300 (300ng/ml)
[2020-03-31 06:02] LABS: RBC 0-2 rbc/hpf (0-2); URINE PHENCYCLIDINE < 25 (25ng/ml)
[2020-03-31 06:03] LABS: BACTERIA 1+
[2020-03-31 06:20] LABS: BASO # 0.1 10*3/uL (0.0-0.1); EOS # 0.2 10*3/uL (0.0-0.4); EOS % 3.6 % (1.0-4.0); HEMATOCRIT 26.9 % (37.0-47.0); LYMPH # 1.4 10*3/uL (1.3-4.4); LYMPH % 23.8 % (27.0-41.0); MEAN CELL VOLUME 93.4 fl (81.0-99.0); MEAN CORPUSCULAR HGB 29.9 pg (27.0-31.0); MEAN PLATELET VOLUME 11.4 fl (9.6-12.3); MONO # 0.6 10*3/uL (0.1-1.0); MONO % 10.1 % (3.0-9.0); NEUT # 3.6 10*3/uL (2.3-7.9); NEUT % 61.3 % (47.0-73.0); PLATELET COUNT AUTOMATED 150 10*3/uL (130-400); RED BLOOD COUNT 2.88 10*6/uL (4.10-5.10); RED CELL DISTRI WIDTH 19.1 % (0-14.5); WHITE BLOOD COUNT 5.9 10*3/uL (4.8-10.8)
[2020-03-31 06:29] LABS: BUN 2 mg/dl (7-24); CHLORIDE 107 mmol/L (98-107); CREATININE 0.89 mg/dL (0.55-1.02); POTASSIUM 3.7 mmol/L (3.5-5.1); SODIUM 138 mmol/L (136-145)
== END 2020-03-31 07:11 | disposition home or self-care (01) ==
LOC: ED 05:24
PROVIDERS: Emergency Medicine Emergency Medical Services
DX: S02.85XA Fracture of orbit, unspecified, initial encounter for closed fracture (principal); F10.120 Alcohol abuse with intoxication, uncomplicated; F31.9 Bipolar disorder, unspecified; I10 Essential (primary) hypertension; K21.9 Gastro-esophageal reflux disease without esophagitis; E78.5 Hyperlipidemia, unspecified; E66.01 Morbid (severe) obesity due to excess calories; F41.9 Anxiety disorder, unspecified; Z91.018 Allergy to other foods; Z91.030 Bee allergy status; Z88.1 Allergy status to other antibiotic agents; Z79.899 Other long term (current) drug therapy; W19.XXXA Unspecified fall, initial encounter; Y93.89 Activity, other specified; Y92.89 Other specified places as the place of occurrence of the external cause; Y99.8 Other external cause status; Y90.2 Blood alcohol level of 40-59 mg/100 ml

== ENCOUNTER 2020-04-10 15:02 | Inpatient (IN) | payer OTHER ==
[~2020-04-10] VITALS: Ht 162.5 cm; Wt 103.4 kg
[2020-04-10 15:07] VITALS: BP 128/71
[2020-04-10 15:52] LABS: BASO # 0.1 10*3/uL (0.0-0.1); BASO % 1.2 % (0.0-1.0); EOS % 0.1 % (1.0-4.0); HEMATOCRIT 27.4 % (37.0-47.0); LYMPH # 2.5 10*3/uL (1.3-4.4); LYMPH % 31.1 % (27.0-41.0); MEAN CORPUSCULAR HGB 28.6 pg (27.0-31.0); MEAN CORPUSCULAR HGB CONC 32.8 g/dl (33.0-37.0); MEAN PLATELET VOLUME 10.7 fl (9.6-12.3); MONO # 0.7 10*3/uL (0.1-1.0); MONO % 8.2 % (3.0-9.0); NEUT # 4.7 10*3/uL (2.3-7.9); PLATELET COUNT AUTOMATED 218 10*3/uL (130-400); RED BLOOD COUNT 3.15 10*6/uL (4.10-5.10); RED CELL DISTRI WIDTH 18.8 % (0-14.5)
[2020-04-10 16:02] LABS: ACT PARTIAL THROMBO TIME 34.3 SECONDS (20.0-32.1); INTERNATIONAL NORM RATIO 1.3 (2.0-3.5)
[2020-04-10 16:08] LABS: ALBUMIN 2.7 gm/dl (3.1-4.5); ALKALINE PHOSPHATASE 149 U/L (45-117); BUN 3 mg/dl (7-24); CHLORIDE 97 mmol/L (98-107); CREATININE 0.97 mg/dL (0.55-1.02); LIPASE 313 U/L (73-393); POTASSIUM 3.8 mmol/L (3.5-5.1); SGOT/AST 117 IU/L (3-35); SGPT/ALT 65 U/L (12-78); SODIUM 129 mmol/L (136-145); TOTAL PROTEIN 7.3 gm/dL (6.4-8.2); TROPONIN I 0.031 ng/ml (<0.045)
[2020-04-10 16:10] LABS: BETA-HCG, QUANT < 1.0 mIU/mL (1-3)
[2020-04-10 16:30] VITALS: BP 122/75
[2020-04-10 17:13] VITALS: BP 126/62
--- NOTE | 2020-04-10 18:00 | NUR ---
PT RESTING QUIETLY, REPORTS MEDICATIONS WERE EFFECTIVE. VOICES NO COMPLAINTS. CALL LIGHT IN REACH.
--- NOTE | 2020-04-10 18:25 | NUR ---
A 39, admitted to ICCU, under the services of JOÃO Douglas DO with a diagnosis of ALCOHOL DEPENDANCE. Chief complaint is ALCOHOL INTOXICATION. Patient arrived via wheel chair from ER. Monitor applied. Initial assessment completed. Vital signs taken and recorded. JOÃO DOUGLAS DO notified of admission to the unit. Orders received. See assessment for past medical history, medications and allergies. Patient and/or family oriented to unit. [facility] ICCU visitation policy reviewed. Clothing/patient valuable form completed. SRINIVAS MACKAY
[2020-04-10] MEDS ORDERED: PRILOSEC20 M1 PO (18:36)
[2020-04-10] MEDS ORDERED: LISINOPRIL40 MG PO (18:36)
[2020-04-10] MEDS ORDERED: BUSPIRONE30 MG PO (18:38)
[2020-04-10] MEDS ORDERED: EFFEXOR XR150 MG PO (18:38)
--- NOTE | 2020-04-10 19:47 | NUR ---
SECOND LITER IV BOLUS UP. ASSISTED TO BSC AGAIN. URINE SPECIMEN ORDERED IN ER COLLECTED AND SENT. BOXED LUNCH GIVEN AND DEVOURED.
--- NOTE | 2020-04-10 19:53 | NUR ---
DR GALLARDO NOTIFIED OF LACTIC ACID OF 4.8.
[2020-04-10 19:54] LABS: BILIRUBIN NEGATIVE (NEGATIVE); BLOOD 2+ (NEGATIVE); CLARITY CLEAR (CLEAR); COLOR YELLOW (YELLOW); GLUCOSE 3+ (NEGATIVE); KETONE NEGATIVE (NEGATIVE); LEUKO ESTERASE NEGATIVE (NEGATIVE); NITRITE NEGATIVE (NEGATIVE); SPECIFIC GRAVITY 1.005 (1.005-1.030); UROBILINOGEN 0.2 E.U./dl (0.2-1.0)
[2020-04-10 19:59] LABS: EPITHELIAL CELLS 31-40; MUCOUS 1+
[2020-04-10 20:00] VITALS: BP 134/68
--- NOTE | 2020-04-10 20:14 | NUR ---
IV ITTUS STARTING TO APPEAR SWOLLEN DESPITE GREAT BLOOD RETURN. SITE DC'D AND NEW ONE STARTED LT HAND X 1 ATTEMPT. ZOFRAN PER PT REQUEST FOR NAUSEA AND THEN SHE PROCEEDED TO INGEST THE ENTIRE PITCHER OF WATER DESPITE EDUCATION ON THIS.
--- NOTE | 2020-04-10 20:44 | NUR ---
PT LAYING ON LT SIDE SLEEPING WITH EVEN, UNLABORED RESPIRATIONS.
--- NOTE | 2020-04-10 21:22 | NUR ---
PT DISLODGED NEW IV LH WHILE GETTING UP TO BSC AGAIN. SITE DC'D AND NEW ONE STARTED TITUS.
--- NOTE | 2020-04-10 22:01 | NUR ---
PT BACK TO SLEEP.
--- NOTE | 2020-04-10 22:27 | NUR ---
MEDICATED WITH VISTARIL AND RESTORIL PER PT REQUEST FOR ANXIETY AND SLEEP AT 2210. ASSISTED UP TO THE BSC AND BACK TO BED OFTEN. SHE IS GETTING LABWORK DRAWN AT THIS TIME.
[2020-04-11] VITALS: BP 124/74
--- NOTE | 2020-04-11 02:06 | NUR ---
PT WIDE AWAKE, ASKING WHEN SHE COULD HAVE ATIVAN AGAIN...MEDICATED WITH IV ATIVAN AT 0139 AND SHE REMAINED RESTLESS. STATES CAN'T GET COMFORTABLE. ASSISTED PT UP TO CHAIR AND BED TYPE CHANGED PER HER REQUEST. SHE STATES NEW BED MATTRESS FEELS MORE COMFORTABLE AND THAT "I MIGHT GET A LITTLE REST NOW."
[2020-04-11 04:00] VITALS: BP 132/66
--- NOTE | 2020-04-11 04:38 | NUR ---
ROBAXIN AND BENTYL GIVEN FOR CRAMPING AND STOMACH ISSUES AT 0300 NOT EFFECTIVE. PT ALSO STATES "I GOTTA TELL YOU SOMETHING YOU'RE NOT GONNA WANT TO HEAR. I'M HALLUCINATING. THERE'S A DOG RIGHT THERE.". ASSISTED UP TO BSC AND MONITOR LEADS REPLACED REPEATEDLY. WELL EXPLANATIONS ON RESTRICTIONS AND SETTING LIMITS. PT OCCASIONALLY BECOMES WEEPY FOR A MINUTE AND THEN SAYS "OH, I'M SO SORRY I'VE BEEN SO FRUSTRATING TONIGHT. I'M GOING TO QUIT DRINKING. I CAN'T DO THIS NO MORE."
[2020-04-11 05:59] LABS: ALBUMIN 2.5 gm/dl (3.1-4.5); BUN 3 mg/dl (7-24); CHLORIDE 105 mmol/L (98-107); POTASSIUM 3.7 mmol/L (3.5-5.1); SODIUM 137 mmol/L (136-145)
[2020-04-11 06:03] LABS: SGOT/AST 117 IU/L (3-35); SGPT/ALT 62 U/L (12-78); TOTAL PROTEIN 6.6 gm/dL (6.4-8.2)
--- NOTE | 2020-04-11 06:03 | NUR ---
PT CLAIMS ANXIETY "THROUGH THE ROOF" "I FEEL LIKE I'M CLIMBING OUT OF MY SKIN". REQUESTED TRAZADONE. CONVEYED TO DR GALLARDO. ORDER RECEIVED AND TRAZADONE GIVEN AT 0520. LOPRESSOR ALSO GIVEN....HR 108 AT REST TO 140'S WITH FREQUENT ACTIVITY.
[2020-04-11 06:05] LABS: ALKALINE PHOSPHATASE 133 U/L (45-117)
[2020-04-11 06:10] LABS: BASO # 0.1 10*3/uL (0.0-0.1); BASO % 1.1 % (0.0-1.0); EOS # 0.1 10*3/uL (0.0-0.4); EOS % 1.5 % (1.0-4.0); HEMATOCRIT 24.2 % (37.0-47.0); LYMPH # 1.2 10*3/uL (1.3-4.4); LYMPH % 24.8 % (27.0-41.0); MEAN CELL VOLUME 87.1 fl (81.0-99.0); MEAN CORPUSCULAR HGB 28.4 pg (27.0-31.0); MEAN CORPUSCULAR HGB CONC 32.6 g/dl (33.0-37.0); MEAN PLATELET VOLUME 11.5 fl (9.6-12.3); MONO # 0.6 10*3/uL (0.1-1.0); MONO % 12.1 % (3.0-9.0); NEUT # 2.8 10*3/uL (2.3-7.9); NEUT % 60.3 % (47.0-73.0); PLATELET COUNT AUTOMATED 162 10*3/uL (130-400); RED BLOOD COUNT 2.78 10*6/uL (4.10-5.10); RED CELL DISTRI WIDTH 18.6 % (0-14.5); WHITE BLOOD COUNT 4.7 10*3/uL (4.8-10.8)
--- NOTE | 2020-04-11 06:31 | NUR ---
IV ATIVAN GIVEN ORDERED/REQUEST FOR ANXIETY. SHE STATES "I TAKE 4MG AT A TIME AT HOME."
--- NOTE | 2020-04-11 06:33 | NUR ---
ZOFRAN GIVEN AT 0530 FOR PT C/O NAUSEA EFFECTIVE... PT EATING ICE AND ANXIOUS TO ORDER BREAKFAST.
--- NOTE | 2020-04-11 07:50 | NUR ---
RESIDENT ADVISED THAT PT HAS EATEN AND WANTS TO LEAVE NOW
--- NOTE | 2020-04-11 08:15 | NUR ---
PT REMINDED THAT SHE WANTS TO LEAVE NOW
--- NOTE | 2020-04-11 08:30 | NUR ---
PT SIGNED AMA, DC PAPERS ARE NOT AVAILABLE YET IV REMOVED PTS FAMILT WAITING IN PARKING LOT
== END 2020-04-11 08:30 | disposition left against medical advice (07) | DRG 770 ==
LOC: ED 15:02 → ICCU 16:40 → EDHOLD 16:40 → ICCU 17:09
PROVIDERS: Emergency Medicine; Student in an Organized Health Care Education/Training Program; ADMIT Internal Medicine
DX: F10.29 Alcohol dependence with unspecified alcohol-induced disorder (principal); F10.229 Alcohol dependence with intoxication, unspecified; F10.239 Alcohol dependence with withdrawal, unspecified; K70.30 Alcoholic cirrhosis of liver without ascites; K70.10 Alcoholic hepatitis without ascites; E87.2 Acidosis; E87.1 Hypo-osmolality and hyponatremia; E87.8 Other disorders of electrolyte and fluid balance, not elsewhere classified; R73.9 Hyperglycemia, unspecified; F17.210 Nicotine dependence, cigarettes, uncomplicated; G47.30 Sleep apnea, unspecified; E43 Unspecified severe protein-calorie malnutrition; E66.9 Obesity, unspecified; F41.1 Generalized anxiety disorder; F32.9 Major depressive disorder, single episode, unspecified; E78.5 Hyperlipidemia, unspecified; K21.9 Gastro-esophageal reflux disease without esophagitis; R56.9 Unspecified convulsions; I10 Essential (primary) hypertension; Y90.8 Blood alcohol level of 240 mg/100 ml or more; Z68.39 Body mass index [BMI] 39.0-39.9, adult; Z71.6 Tobacco abuse counseling; Z80.49 Family history of malignant neoplasm of other genital organs; Z81.3 Family history of other psychoactive substance abuse and dependence; Z82.0 Family history of epilepsy and other diseases of the nervous system; Z80.42 Family history of malignant neoplasm of prostate; Z83.3 Family history of diabetes mellitus; Z82.49 Family history of ischemic heart disease and other diseases of the circulatory system; Z83.6 Family history of other diseases of the respiratory system; Z88.1 Allergy status to other antibiotic agents; Z91.030 Bee allergy status; Z91.018 Allergy to other foods; Z79.899 Other long term (current) drug therapy

== ENCOUNTER 2020-06-23 13:50 | Inpatient (IN) | payer OTHER ==
[~2020-06-23] VITALS: Ht 162.5 cm; Wt 103.0 kg
[~2020-06-23 13:50] MED LIST changes: +BUSPIRONE30 MG PO
[2020-06-23 13:51] VITALS: BP 90/58
[2020-06-23 14:21] LABS: MEAN CELL VOLUME 82.7 fl (81.0-99.0); MEAN CORPUSCULAR HGB 26.6 pg (27.0-31.0); MEAN CORPUSCULAR HGB CONC 32.1 g/dl (33.0-37.0); MEAN PLATELET VOLUME 10.1 fl (9.6-12.3); PLATELET COUNT AUTOMATED 135 10*3/uL (130-400); RED BLOOD COUNT 2.37 10*6/uL (4.10-5.10); RED CELL DISTRI WIDTH 24.7 % (0-14.5); WHITE BLOOD COUNT 8.1 10*3/uL (4.8-10.8)
[2020-06-23 14:25] LABS: HEMATOCRIT 19.6 % (37.0-47.0)
[2020-06-23 14:31] LABS: ACT PARTIAL THROMBO TIME 35.8 SECONDS (20.0-32.1); INTERNATIONAL NORM RATIO 1.5 (2.0-3.5)
[2020-06-23 14:34] LABS: CREATININE 1.31 mg/dL (0.55-1.02); POTASSIUM 3.8 mmol/L (3.5-5.1); TOTAL PROTEIN 5.8 gm/dL (6.4-8.2)
[2020-06-23 14:37] LABS: BASOPHILS 1 % (0-1); TOTAL CELLS COUNTED 100 #CELLS
[2020-06-23 14:38] LABS: PLATELET SUFFICIENCY NORMAL (NORMAL)
--- NOTE | 2020-06-23 14:59 | NUR ---
PT HAS MULTIPLE "PICKING" SPENCER OVER ENTIRE BODY
[2020-06-23 15:02] LABS: VENOUS BLOOD GAS O2 SAT 99.6 % (40-85); VENOUS PH 7.44 (7.32-7.43)
[2020-06-23 15:38] LABS: BILIRUBIN 1+ (NEGATIVE); CLARITY CLOUDY (CLEAR); COLOR YELLOW (YELLOW); GLUCOSE NEGATIVE (NEGATIVE)
[2020-06-23] MEDS ORDERED: ZESTRIL20 MG PO (15:38)
[2020-06-23 15:39] LABS: BLOOD TRACE-LYSED (NEGATIVE); KETONE NEGATIVE (NEGATIVE)
[2020-06-23] MEDS ORDERED: OMEPRAZOLE40 MG PO (15:39)
[2020-06-23 15:40] LABS: LEUKO ESTERASE 3+ (NEGATIVE); NITRITE NEGATIVE (NEGATIVE); WBC 51-100 wbc/hpf (0-5)
[2020-06-23 15:41] LABS: EPITHELIAL CELLS 0-2; RBC 0-2 rbc/hpf (0-2)
[2020-06-23 15:42] LABS: BACTERIA 3+; URINE AMPHETAMINES < 1000 (1000ng/ml); URINE BARBITURATES < 200 (200ng/ml); URINE BENZODIAZEPINES < 200 (200ng/ml); URINE CANNABINOIDS (THC) < 50 (50ng/ml); URINE COCAINE < 300 (300ng/ml); URINE METHADONE < 300 (300ng/ml); URINE OPIATES < 300 (300ng/ml)
[2020-06-23 15:43] LABS: URINE PHENCYCLIDINE < 25 (25ng/ml)
[2020-06-23] MEDS ORDERED: SAPHRIS2.5 MG SL (15:43)
[2020-06-23] MEDS ORDERED: METOPROLOL SUCC25 M2 PO (15:43)
[2020-06-23 15:46] LABS: UROBILINOGEN 0.2 E.U./dl (0.2-1.0)
[2020-06-23 16:06] VITALS: BP 86/52
[2020-06-23 16:23] VITALS: BP 102/52
[2020-06-23 16:56] VITALS: BP 132/37
--- NOTE | 2020-06-23 16:56 | NUR ---
A 39, admitted to ICCU, under the services of CYNDY Butterfield DO with a diagnosis of GI BLEED/INTOXICATED. Chief complaint is BELLY PAIN. Patient arrived via stretcher from ER. Monitor applied. Initial assessment completed. Vital signs taken and recorded. CYNDY BUTTERFIELD DO notified of admission to the unit. Orders received. See assessment for past medical history, medications and allergies. Patient and/or family oriented to unit. [facility] ICCU visitation policy reviewed. Clothing/patient valuable form completed. FELICIANO MARIN
[2020-06-23 17:00] VITALS: BP 132/37
--- NOTE | 2020-06-23 17:26 | NUR ---
PT TRANSPORTED OFF THE UNIT BEFORE 2ND SET OF VITALS WERE NEEDED FOR BLOOD TRANSFUSION, PT STABLE DURING TRANSPORT, HANDOFF REPORT GIVEN TO SRINIVAS WEEKS ICU @ 1243
[2020-06-23 17:30] VITALS: BP 119/35
--- NOTE | 2020-06-23 18:00 | NUR ---
FIRST UNIT BLOOD COMPLETE. NO SIGNS OR SYMPTOMS OF TRANSFUSION REACTION NOTED
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
--- NOTE | 2020-06-23 19:30 | NUR ---
Patient signed out AMA. Patient encouraged to stay and advised of possible consequences of premature discharge. Physician DR. ROD and subassembly supervisor notified. Patient instructed what to do regarding care post-departure from the hospital; emergency phone numbers provided. Patent was accompanied by SRINIVAS LYON
[2020-06-25] MEDS ORDERED: OMEPRAZOLE40 MG PO (14:16)
== END 2020-06-23 19:30 | disposition left against medical advice (07) | DRG 280 ==
LOC: ED 13:50 → EDHOLD 15:20 → ICCU 16:06
PROVIDERS: Emergency Medicine; ADMIT Internal Medicine
DX: K70.31 Alcoholic cirrhosis of liver with ascites (principal); F31.9 Bipolar disorder, unspecified; I10 Essential (primary) hypertension; F41.1 Generalized anxiety disorder; K21.9 Gastro-esophageal reflux disease without esophagitis; E78.5 Hyperlipidemia, unspecified; E66.9 Obesity, unspecified; D64.9 Anemia, unspecified; E87.2 Acidosis; F10.220 Alcohol dependence with intoxication, uncomplicated; E87.1 Hypo-osmolality and hyponatremia; F17.210 Nicotine dependence, cigarettes, uncomplicated; R73.9 Hyperglycemia, unspecified; E44.0 Moderate protein-calorie malnutrition; E83.51 Hypocalcemia; N39.0 Urinary tract infection, site not specified; I95.9 Hypotension, unspecified; R74.0 Nonspecific elevation of levels of transaminase and lactic acid dehydrogenase [LDH]; Z83.3 Family history of diabetes mellitus; Z88.1 Allergy status to other antibiotic agents; Z91.030 Bee allergy status; Z91.018 Allergy to other foods; Z82.49 Family history of ischemic heart disease and other diseases of the circulatory system; Z83.6 Family history of other diseases of the respiratory system; Z82.0 Family history of epilepsy and other diseases of the nervous system; Z71.6 Tobacco abuse counseling; Z68.38 Body mass index [BMI] 38.0-38.9, adult

== ENCOUNTER 2020-06-23 19:55 | Inpatient (IN) | payer OTHER ==
[~2020-06-23] VITALS: Ht 162.5 cm; Wt 104.4 kg
[2020-06-23 20:07] VITALS: BP 103/55
--- NOTE | 2020-06-23 20:20 | NUR ---
PT SOILED BRIEFS CHANGED.PT PLACED IN GOWN.
--- NOTE | 2020-06-23 20:32 | NUR ---
2 ATTEMPTS MADE AT IV ACCESS.UNSUCCESSFUL AT THIS TIME.
--- NOTE | 2020-06-23 20:34 | NUR ---
PT REPORTS MULTIPLE AREAS OF SCABS FROM "PICKING".PT DENIES ANY OTHER WOUNDS.
--- NOTE | 2020-06-23 20:49 | NUR ---
MICKY FELIXIN AT BEDSIDE TO ATTEMPT IV ACCESS.
--- NOTE | 2020-06-23 21:12 | NUR ---
3 ADDITIONAL UNSUCCESSFUL ATTEMPTS MADE TO ESTABLISH IV ACCESS.MD FELDER AWARE.WATER PLANT MAINTENANCE MECHANIC DB AND DR ROD ARE ALSO AWARE.
--- NOTE | 2020-06-23 21:15 | NUR ---
PT RESTING IN BED AT THIS TIME.
--- NOTE | 2020-06-23 21:29 | NUR ---
ADVISED BY MD FELDER, DR ROD TO PLACE CENTRAL LINE IN PT ON ARRIVAL TO UNIT.PT AWAITING ROOM ASSIGNMENT FOR ADMISSION.MD FELDER COMPLETED PINK SLIP AND PLACED IN PT FILE.
[2020-06-23 21:31] VITALS: BP 95/24
[2020-06-23 21:36] VITALS: BP 106/48
--- NOTE | 2020-06-23 21:44 | NUR ---
PT TO UNIT AT THIS TIME VIA STRETCHER.
[2020-06-23 21:50] VITALS: BP 119/83
--- NOTE | 2020-06-23 21:50 | NUR ---
A 39, admitted to ICCU, under the services of CYNDY Butterfield DO with a diagnosis of GI BLEED, ALCOHOL INTOXICATION. Chief complaint is GI BLEED. Patient arrived via ambulatory from ER. Monitor applied. Initial assessment completed. Vital signs taken and recorded. CYNDY BUTTERFIELD DO notified of admission to the unit. Orders received. See assessment for past medical history, medications and allergies. Patient and/or family oriented to unit. [facility] ICCU visitation policy reviewed. Clothing/patient valuable form completed. SARAH CARSON
--- NOTE | 2020-06-23 22:13 | NUR ---
DR. ROD AT PATIENT BEDSIDE TO INSERT CENTRAL LINE AT THIS TIME.
[2020-06-24] VITALS (21 sets, daily range): BP systolic 102–140; BP diastolic 43–89
[2020-06-24 00:26] LABS: MEAN CELL VOLUME 81.5 fl (81.0-99.0); MEAN CORPUSCULAR HGB 27.2 pg (27.0-31.0); MEAN CORPUSCULAR HGB CONC 33.3 g/dl (33.0-37.0); MEAN PLATELET VOLUME 10.8 fl (9.6-12.3); PLATELET COUNT AUTOMATED 133 10*3/uL (130-400); RED BLOOD COUNT 2.54 10*6/uL (4.10-5.10); RED CELL DISTRI WIDTH 23.5 % (0-14.5); WHITE BLOOD COUNT 10.5 10*3/uL (4.8-10.8)
[2020-06-24 00:36] LABS: BUN 15 mg/dl (7-24); CHLORIDE 98 mmol/L (98-107); CREATININE 1.02 mg/dL (0.55-1.02); POTASSIUM 3.7 mmol/L (3.5-5.1); SODIUM 131 mmol/L (136-145)
[2020-06-24 00:45] LABS: HEMATOCRIT 20.7 % (37.0-47.0)
[2020-06-24 00:50] LABS: BASOPHILS 1 % (0-1); PLATELET SUFFICIENCY NORMAL (NORMAL); TOTAL CELLS COUNTED 100 #CELLS
[2020-06-24 00:51] LABS: BURR CELLS FEW; OVALOCYTES FEW; TARGET CELLS FEW
--- NOTE | 2020-06-24 05:20 | NUR ---
IV LOPRESSOR GIVEN AT THIS TIME FOR A HEART RATE IN THE 130-140'S. WILL CONTINUE TO MONITOR. CALL LIGHT WITHIN REACH.
--- NOTE | 2020-06-24 05:56 | NUR ---
SACRAL DRESSING APPLIED PER PT REQUEST FOR SCABBED AREA THAT STARTED BLEEDING DUE TO PICKING. PATIENT ASKED IF WOUND CARE PICTURES AND MEASUREMENTS WERE WANTED AT THIS TIME AND PATIENT REFUSED.
--- NOTE | 2020-06-24 06:00 | NUR ---
IV LOPRESSOR EFFECTIVE, PT HEART RATE DROPPED TO 106 AT THIS TIME. PATIENT RESTING COMFORTABLY. RESPIRATIONS EASY AND NON-LABORED. CALL LIGHT WITHIN REACH.
[2020-06-24 06:28] LABS: HEMATOCRIT 22.3 % (37.0-47.0); MEAN CELL VOLUME 81.1 fl (81.0-99.0); MEAN CORPUSCULAR HGB 27.3 pg (27.0-31.0); MEAN CORPUSCULAR HGB CONC 33.6 g/dl (33.0-37.0); MEAN PLATELET VOLUME 10.5 fl (9.6-12.3); PLATELET COUNT AUTOMATED 110 10*3/uL (130-400); RED BLOOD COUNT 2.75 10*6/uL (4.10-5.10); RED CELL DISTRI WIDTH 22.4 % (0-14.5); WHITE BLOOD COUNT 9.1 10*3/uL (4.8-10.8)
[2020-06-24 06:59] LABS: TOTAL CELLS COUNTED 100 #CELLS
[2020-06-24 07:00] LABS: OVALOCYTES FEW; PLATELET SUFFICIENCY LOW (NORMAL); POLYCHROMASIA SLIGHT; TARGET CELLS FEW
[2020-06-24 07:17] LABS: ALBUMIN 1.9 gm/dl (3.1-4.5); ALKALINE PHOSPHATASE 122 U/L (45-117); BUN 14 mg/dl (7-24); CHLORIDE 100 mmol/L (98-107); CREATININE 0.88 mg/dL (0.55-1.02); POTASSIUM 3.5 mmol/L (3.5-5.1); SGOT/AST 160 IU/L (3-35); SGPT/ALT 68 U/L (12-78); SODIUM 135 mmol/L (136-145); TOTAL PROTEIN 5.5 gm/dL (6.4-8.2)
--- NOTE | 2020-06-24 08:15 | NUR ---
DR. KAY HERE TO SEE PATIENT. SHE STATES TO HOLD OFF ON PO ATIVAN SHE IS NPO AND CONTINUE TO GIVE IV ATIVAN NEEDED FOR ALCOHOL WITHDRAWAL.
--- NOTE | 2020-06-24 10:39 | NUR ---
MEDICATED WITH 2 TYLENOL FOR COMPLAINTS OF RIGHT SIDED NECK PAIN FROM MULTI-LUMEN CATHETER
--- NOTE | 2020-06-24 11:15 | NUR ---
VOICES THAT TYLENOL WAS EFFECTIVE FOR PAIN
--- NOTE | 2020-06-24 14:06 | NUR ---
THIRD UNIT PRBC'S HUNG ORDERED AT 150CC/HR VIA RIJ MLC
--- NOTE | 2020-06-24 15:46 | NUR ---
MEDICATED WITH ROUTINE PO ATIVAN AND BENTYL PO ORDERED FOR COMPLAINTS OF STOMACH CRAMPS.
--- NOTE | 2020-06-24 20:00 | NUR ---
ATIVAN AND NORCO GIVEN PER PT REQUEST FOR ANXIETY AND PAIN IN NECK AND ABDOMEN. PATIENT UNABLE TO DESCRIBE PAIN BUT SAYS IT IS A 6/10. CALL LIGHT WITHIN REACH.
--- NOTE | 2020-06-24 23:00 | NUR ---
ZOFRAN AND MORPHINE GIVEN FOR ABDOMINAL AND NECK PAIN. PAIN RATED A 6/10 AND DESCRIBED BEING A DULL ACHE. WILL CONTINUE TO MONITOR AND REASSESS.
[2020-06-25] VITALS (7 sets, daily range): BP systolic 118–134; BP diastolic 55–82
--- NOTE | 2020-06-25 | NUR ---
ZOFRAN AND MORPHINE EFFECTIVE. PATIENT RESTING COMFORTABLY AT THIS TIME WITH NO S/S OF DISTRESS.
[2020-06-25 05:30] LABS: ALBUMIN 2.1 gm/dl (3.1-4.5); BUN 8 mg/dl (7-24); CHLORIDE 101 mmol/L (98-107); CREATININE 0.93 mg/dL (0.55-1.02); POTASSIUM 3.1 mmol/L (3.5-5.1); SGOT/AST 148 IU/L (3-35); SGPT/ALT 68 U/L (12-78); SODIUM 134 mmol/L (136-145); TOTAL PROTEIN 6.1 gm/dL (6.4-8.2)
[2020-06-25 05:33] LABS: ALKALINE PHOSPHATASE 120 U/L (45-117)
[2020-06-25 06:07] LABS: BASO # 0.1 10*3/uL (0.0-0.1); BASO % 0.9 % (0.0-1.0); EOS # 0.2 10*3/uL (0.0-0.4); EOS % 3.4 % (1.0-4.0); HEMATOCRIT 25.9 % (37.0-47.0); LYMPH # 2.4 10*3/uL (1.3-4.4); LYMPH % 37.3 % (27.0-41.0); MEAN CORPUSCULAR HGB 27.8 pg (27.0-31.0); MEAN PLATELET VOLUME 10.6 fl (9.6-12.3); MONO # 0.7 10*3/uL (0.1-1.0); MONO % 10.8 % (3.0-9.0); NEUT # 3.1 10*3/uL (2.3-7.9); NEUT % 47.3 % (47.0-73.0); PLATELET COUNT AUTOMATED 103 10*3/uL (130-400); RED BLOOD COUNT 3.16 10*6/uL (4.10-5.10); RED CELL DISTRI WIDTH 21.5 % (0-14.5); WHITE BLOOD COUNT 6.5 10*3/uL (4.8-10.8)
--- NOTE | 2020-06-25 08:43 | NUR ---
0800 Awake and alert. Requesting ice chips and ativan, ice chips and ativan were given.
--- NOTE | 2020-06-25 11:00 | NUR ---
Harmonic Analyst in to see patient. She is currently not in her room. She is in surgery. Will follow up at a later time.
--- NOTE | 2020-06-25 11:11 | NUR ---
Brit was contacted for picket labor union . Discharge instruction were given to her and pt. Discharged to home.
--- NOTE | 2020-06-25 12:48 | NUR ---
1237 Returned from OR, stable. Requesting food, water and something for anxiety, Water provided, lunch ordered and medicated for anxiety.
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
--- NOTE | 2020-06-25 13:48 | NUR ---
Medicated for continued anxiety.
--- NOTE | 2020-06-25 14:15 | NUR ---
dR. Saravia IN TO [facility]. ok FOR DISCHARGE. mlc REMOVED FROM rij, PRESSURE dressing applied. Discharge instruction given, voiced understanding. Discharged to main lobby , awaiting transportation. See CCDIS.
[2020-06-25] MEDS ORDERED: OMEPRAZOLE40 MG PO ×2 (14:16)
[2020-07-16] MEDS ORDERED: EFFEXOR XR75 M1 PO (16:37)
== END 2020-06-25 14:15 | disposition home or self-care (01) | DRG 720 ==
LOC: ED 19:55 → EDHOLD 21:25 → ICCU 21:25
PROVIDERS: Student in an Organized Health Care Education/Training Program; ADMIT Internal Medicine; ATTEND Internal Medicine
PROC: 02HV33Z Insertion of Infusion Device into Superior Vena Cava, Percutaneous Approach (ICD-10-PCS; 2020-06-24)
PROC: B548ZZA Ultrasonography of Superior Vena Cava, Guidance (ICD-10-PCS; 2020-06-24)
PROC: 30233N1 Transfusion of Nonautologous Red Blood Cells into Peripheral Vein, Percutaneous Approach (ICD-10-PCS; 2020-06-24)
PROC: 0DB68ZX Excision of Stomach, Via Natural or Artificial Opening Endoscopic, Diagnostic (ICD-10-PCS; principal; 2020-06-25)
DX: A41.9 Sepsis, unspecified organism (principal); D62 Acute posthemorrhagic anemia; N30.01 Acute cystitis with hematuria; K70.31 Alcoholic cirrhosis of liver with ascites; F41.1 Generalized anxiety disorder; E87.1 Hypo-osmolality and hyponatremia; E43 Unspecified severe protein-calorie malnutrition; F10.220 Alcohol dependence with intoxication, uncomplicated; R74.0 Nonspecific elevation of levels of transaminase and lactic acid dehydrogenase [LDH]; B18.2 Chronic viral hepatitis C; K21.9 Gastro-esophageal reflux disease without esophagitis; K86.0 Alcohol-induced chronic pancreatitis; I10 Essential (primary) hypertension; F31.60 Bipolar disorder, current episode mixed, unspecified; G47.33 Obstructive sleep apnea (adult) (pediatric); F10.230 Alcohol dependence with withdrawal, uncomplicated; R73.9 Hyperglycemia, unspecified; E78.5 Hyperlipidemia, unspecified; N17.0 Acute kidney failure with tubular necrosis; E83.51 Hypocalcemia; F43.10 Post-traumatic stress disorder, unspecified; F60.9 Personality disorder, unspecified; K29.71 Gastritis, unspecified, with bleeding; E66.9 Obesity, unspecified; J98.11 Atelectasis; K72.90 Hepatic failure, unspecified without coma; F17.210 Nicotine dependence, cigarettes, uncomplicated; Z71.6 Tobacco abuse counseling; Z68.39 Body mass index [BMI] 39.0-39.9, adult; Z88.1 Allergy status to other antibiotic agents; Z91.030 Bee allergy status; Z91.018 Allergy to other foods; Z80.8 Family history of malignant neoplasm of other organs or systems; Z80.42 Family history of malignant neoplasm of prostate; Z81.3 Family history of other psychoactive substance abuse and dependence; Z82.5 Family history of asthma and other chronic lower respiratory diseases; Z83.3 Family history of diabetes mellitus; Z82.49 Family history of ischemic heart disease and other diseases of the circulatory system; Z82.0 Family history of epilepsy and other diseases of the nervous system; Z79.899 Other long term (current) drug therapy

== ENCOUNTER 2020-06-30 12:27 | Emergency (ER) | payer OTHER ==
[~2020-06-30] VITALS: Ht 162.5 cm; Wt 99.8 kg
[2020-06-30 13:48] LABS: BASO % 0.7 % (0.0-1.0); EOS % 0.5 % (1.0-4.0); HEMATOCRIT 29.4 % (37.0-47.0); LYMPH # 1.8 10*3/uL (1.3-4.4); LYMPH % 30.4 % (27.0-41.0); MEAN CELL VOLUME 88.6 fl (81.0-99.0); MEAN CORPUSCULAR HGB CONC 31.6 g/dl (33.0-37.0); MONO # 0.8 10*3/uL (0.1-1.0); MONO % 13.4 % (3.0-9.0); NEUT # 3.2 10*3/uL (2.3-7.9); NEUT % 54.8 % (47.0-73.0); PLATELET COUNT AUTOMATED 148 10*3/uL (130-400); RED BLOOD COUNT 3.32 10*6/uL (4.10-5.10); RED CELL DISTRI WIDTH 23.6 % (0-14.5); WHITE BLOOD COUNT 5.9 10*3/uL (4.8-10.8)
[2020-06-30 13:57] LABS: INTERNATIONAL NORM RATIO 1.3 (2.0-3.5)
[2020-06-30 14:05] LABS: ALBUMIN 2.2 gm/dl (3.1-4.5); ALKALINE PHOSPHATASE 139 U/L (45-117); BUN 5 mg/dl (7-24); CHLORIDE 111 mmol/L (98-107); CREATININE 0.84 mg/dL (0.55-1.02); LIPASE 247 U/L (73-393); POTASSIUM 3.7 mmol/L (3.5-5.1); SGOT/AST 75 IU/L (3-35); SGPT/ALT 50 U/L (12-78); SODIUM 140 mmol/L (136-145); TOTAL PROTEIN 6.8 gm/dL (6.4-8.2)
[2020-06-30 14:08] LABS: BILIRUBIN NEGATIVE (NEGATIVE); BLOOD TRACE-INTACT (NEGATIVE); CLARITY SL CLOUDY (CLEAR); COLOR YELLOW (YELLOW); GLUCOSE NEGATIVE (NEGATIVE); KETONE NEGATIVE (NEGATIVE); LEUKO ESTERASE 3+ (NEGATIVE); NITRITE NEGATIVE (NEGATIVE); SPECIFIC GRAVITY 1.005 (1.005-1.030); UROBILINOGEN < 1.0 E.U./dl (0.2-1.0)
[2020-06-30 14:09] LABS: TROPONIN I < 0.015 ng/ml (<0.045)
[2020-06-30 14:14] LABS: URINE AMPHETAMINES < 1000 (1000ng/ml); URINE BARBITURATES < 200 (200ng/ml); URINE BENZODIAZEPINES < 200 (200ng/ml); URINE CANNABINOIDS (THC) < 50 (50ng/ml); URINE COCAINE < 300 (300ng/ml); URINE METHADONE < 300 (300ng/ml); URINE OPIATES < 300 (300ng/ml); URINE PHENCYCLIDINE < 25 (25ng/ml)
[2020-06-30 14:17] LABS: RBC 0-2 rbc/hpf (0-2)
[2020-06-30 14:18] LABS: BACTERIA 2+; WBC TNTC wbc/hpf (0-5)
== END 2020-06-30 14:40 | disposition left against medical advice (07) ==
LOC: ED 12:27
PROVIDERS: Physician Assistant
DX: R10.9 Unspecified abdominal pain (principal); R19.7 Diarrhea, unspecified; R06.02 Shortness of breath; R11.0 Nausea; Z91.030 Bee allergy status; Z88.8 Allergy status to other drugs, medicaments and biological substances; Z79.899 Other long term (current) drug therapy

== ENCOUNTER 2020-07-01 21:38 | Inpatient (IN) | payer OTHER ==
[~2020-07-01] VITALS: Ht 162.5 cm; Wt 110.8 kg
[2020-07-01 21:41] VITALS: BP 147/67
[2020-07-01 23:15] VITALS: BP 164/86
[2020-07-01 23:30] LABS: BASO # 0.1 10*3/uL (0.0-0.1); EOS # 0.1 10*3/uL (0.0-0.4); EOS % 1.9 % (1.0-4.0); HEMATOCRIT 30.1 % (37.0-47.0); LYMPH # 3.2 10*3/uL (1.3-4.4); MEAN CELL VOLUME 90.1 fl (81.0-99.0); MEAN CORPUSCULAR HGB 27.5 pg (27.0-31.0); MEAN CORPUSCULAR HGB CONC 30.6 g/dl (33.0-37.0); MEAN PLATELET VOLUME 10.3 fl (9.6-12.3); MONO # 0.9 10*3/uL (0.1-1.0); MONO % 12.7 % (3.0-9.0); NEUT # 2.7 10*3/uL (2.3-7.9); NEUT % 38.4 % (47.0-73.0); PLATELET COUNT AUTOMATED 183 10*3/uL (130-400); RED BLOOD COUNT 3.34 10*6/uL (4.10-5.10); RED CELL DISTRI WIDTH 23.3 % (0-14.5)
[2020-07-01 23:40] LABS: INTERNATIONAL NORM RATIO 1.2 (2.0-3.5)
[2020-07-01 23:48] LABS: ALBUMIN 2.2 gm/dl (3.1-4.5); ALKALINE PHOSPHATASE 153 U/L (45-117); BUN 4 mg/dl (7-24); CHLORIDE 111 mmol/L (98-107); CREATININE 0.84 mg/dL (0.55-1.02); LIPASE 195 U/L (73-393); POTASSIUM 3.7 mmol/L (3.5-5.1); SGOT/AST 93 IU/L (3-35); SGPT/ALT 54 U/L (12-78); SODIUM 140 mmol/L (136-145); TOTAL PROTEIN 6.8 gm/dL (6.4-8.2)
[2020-07-01 23:51] LABS: TROPONIN I < 0.015 ng/ml (<0.045)
[2020-07-02] VITALS (8 sets, daily range): BP systolic 126–162; BP diastolic 64–98
--- NOTE | 2020-07-02 01:20 | NUR ---
PATIENT UNABLE TO PROVIDE UA SPECIMEN AT THIS TIME WILL CHECK BACK WITH PATIENT.
--- NOTE | 2020-07-02 03:00 | NUR ---
Time: 299 A 39 year old FEMALE admitted to under services of SHEA WILSON DO. Pt. arrived via stretcher from ER. Chief complaint: ALCOHOL INTOXICATION, ABDOMINAL PAIN. SAAD SHEARER
[2020-07-02 03:04] LABS: CLARITY SL CLOUDY (CLEAR); COLOR YELLOW (YELLOW)
[2020-07-02 03:06] LABS: BILIRUBIN NEGATIVE (NEGATIVE); GLUCOSE NEGATIVE (NEGATIVE)
[2020-07-02 03:07] LABS: BLOOD NEGATIVE (NEGATIVE); KETONE NEGATIVE (NEGATIVE); LEUKO ESTERASE TRACE (NEGATIVE); NITRITE NEGATIVE (NEGATIVE); PH 6.5 (5.0-9.0); SPECIFIC GRAVITY 1.005 (1.005-1.030); URINE AMPHETAMINES < 1000 (1000ng/ml); URINE BARBITURATES < 200 (200ng/ml); URINE BENZODIAZEPINES < 200 (200ng/ml); URINE CANNABINOIDS (THC) < 50 (50ng/ml); URINE COCAINE < 300 (300ng/ml); URINE METHADONE < 300 (300ng/ml); URINE OPIATES < 300 (300ng/ml); URINE PHENCYCLIDINE < 25 (25ng/ml); UROBILINOGEN 0.2 E.U./dl (0.2-1.0)
[2020-07-02 03:13] LABS: EPITHELIAL CELLS 21-30
[2020-07-02 03:14] LABS: BACTERIA 1+
--- NOTE | 2020-07-02 03:34 | NUR ---
MVI BAG ORDERED. WE HAVE TO MIX IT SINCE PHARMACY IS NOT HERE. NOTIFIED DR LEBLANC THAT FOLIC ACID IS NOT AVAILABLE IV AT NIGHT. SHE STATED IT WAS OKAY TO ORDER IT PO IF NOT AVAILABLE.
--- NOTE | 2020-07-02 04:17 | NUR ---
NURSE SMITH IN PATIENT'S ROOM TRYING TO GET AN IV SO SHE CAN HAVE THE CONTRAST FOR HER CT.
--- NOTE | 2020-07-02 04:50 | NUR ---
NOT ABLE TO OBTAIN ADDITIONAL IV ACCESS AT THIS TIME. DOPPLER WAS USED AND STILL NOT ABLE TO GET IV ACCESS. WILL NOTIFY DOCTOR IN MORNING. PATIENT CURRENTLY GETTING NORMAL SALINE 100 ML/HR ONE TIME BAG IN RIGHT CHEST IV. MVI BAG REORDERED FOR [address] LEBLANC BECAUSE WE WERE NOT ABLE TO GET ORDERED ADDITIVES UNTIL PHARMACY GETS HERE.
--- NOTE | 2020-07-02 05:50 | NUR ---
MED REC UP TO DATE.
--- NOTE | 2020-07-02 06:27 | NUR ---
NOTIFIED DR LEBLANC THAT PATIENT'S HEART RATE WAS IN THE 130'S. SHE STATED TO GIVE HER SOMETHING FOR PAIN.
--- NOTE | 2020-07-02 08:01 | NUR ---
PATIENT COMPLAINING OF PAIN AT AN 8/10 PAIN SCALE. ADMINISTERED PO PRN NORCO.
--- NOTE | 2020-07-02 09:04 | NUR ---
PATIENT RESTING WITH NO S/S PAIN. PRN NORCO GIVEN EARLIER EFFECTIVE.
--- NOTE | 2020-07-02 11:36 | NUR ---
U NOTIFIED OF CONSULT.
--- NOTE | 2020-07-02 12:56 | NUR ---
PATIENT COMPLAINS OF PAIN, ADMINISTERED PO PRN NORCO FOR PAIN
--- NOTE | 2020-07-02 13:50 | NUR ---
PO PRN NORCO EFFECTIVE PER PATIENT
--- NOTE | 2020-07-02 14:39 | NUR ---
PATIENT COMPLAINING OF ANXIETY, ADMINISTERED IV PRN ATIVAN
--- NOTE | 2020-07-02 15:19 | NUR ---
PRN IV ATIVAN EFFECTIVE, PER PATIENT.
--- NOTE | 2020-07-02 16:34 | NUR ---
PATIENT COMPLAINING OF ABDOMINAL PAIN, ADMINISTERED IV PRN MORPHINE
--- NOTE | 2020-07-02 16:35 | NUR ---
PATIENT COMPLAINS OF STOMACH PAIN, ADMINISTERED PO TUMS FOR UPSET STOMACH
--- NOTE | 2020-07-02 17:35 | NUR ---
PRN IV MORPHINE EFFECTIVE, PER PATIENT, ALSO TUMS EFFECTIVE.
--- NOTE | 2020-07-02 18:35 | NUR ---
PATIENT REPORTS OF HAVING SOME ANXIETY, ADMINISTERED IV PRN ATIVAN FOR THIS AT THIS TIME
--- NOTE | 2020-07-02 18:56 | NUR ---
PRN IV ATIVAN EFFECTIVE, PER PATIENT.
--- NOTE | 2020-07-02 19:33 | NUR ---
PATIENT RESTING ON RT SIDE WITH SNORING RESPIRATIONS, EASY AND REGULAR ON ROOM AIR. IVF INFUSING PER ORDERS. CALL LIGHT IN REACH.
--- NOTE | 2020-07-02 20:00 | NUR ---
PT GIVEN NORCO PER C/O 07/09 ABDOMINAL PAIN AND SCHEDULED PO ATIVAN
--- NOTE | 2020-07-02 21:00 | NUR ---
PT STATES NORCO INEFFECTIVE FOR PAIN. MORPHINE GIVEN PER PRN ORDER FOR 810 PAIN AT 2118, WILL MONITOR.
--- NOTE | 2020-07-02 22:00 | NUR ---
MORPHINE EFFECTIVE TO "TAKE THE EDGE OFF" PER PT
--- NOTE | 2020-07-02 22:35 | NUR ---
IV ATIVAN GIVEN PER PRN ORDER FOR DT, HR 120, 140 WITH AMBULATION
[2020-07-03] VITALS: BP 147/77
--- NOTE | 2020-07-03 00:20 | NUR ---
PATIENT GIVEN SCHEDULED ATIVAN PER TAPER ORDER AND PO NORCO PER REQUEST FOR ABDOMINAL PAIN. CALL LIGHT IN REACH.
--- NOTE | 2020-07-03 05:30 | NUR ---
IV MORPHINE GIVEN PER PT C/O PAIN TO UPPER ABDOMEN, HR 115
[2020-07-03 06:29] LABS: BASO # 0.1 10*3/uL (0.0-0.1); BASO % 1.2 % (0.0-1.0); EOS # 0.1 10*3/uL (0.0-0.4); EOS % 2.6 % (1.0-4.0); HEMATOCRIT 26.2 % (37.0-47.0); LYMPH # 1.7 10*3/uL (1.3-4.4); LYMPH % 40.5 % (27.0-41.0); MEAN CORPUSCULAR HGB 28.5 pg (27.0-31.0); MEAN CORPUSCULAR HGB CONC 31.7 g/dl (33.0-37.0); MEAN PLATELET VOLUME 10.2 fl (9.6-12.3); MONO # 0.6 10*3/uL (0.1-1.0); MONO % 13.9 % (3.0-9.0); NEUT # 1.8 10*3/uL (2.3-7.9); NEUT % 41.6 % (47.0-73.0); PLATELET COUNT AUTOMATED 163 10*3/uL (130-400); RED BLOOD COUNT 2.91 10*6/uL (4.10-5.10); WHITE BLOOD COUNT 4.3 10*3/uL (4.8-10.8)
[2020-07-03 07:22] LABS: ALBUMIN 2.2 gm/dl (3.1-4.5); BUN 3 mg/dl (7-24); CHLORIDE 111 mmol/L (98-107); CREATININE 0.71 mg/dL (0.55-1.02); POTASSIUM 4.3 mmol/L (3.5-5.1); SGOT/AST 90 IU/L (3-35); SGPT/ALT 43 U/L (12-78); SODIUM 140 mmol/L (136-145); TOTAL PROTEIN 5.9 gm/dL (6.4-8.2)
[2020-07-03 07:25] LABS: ALKALINE PHOSPHATASE 146 U/L (45-117); CHOLESTEROL 87 mg/dL (<200); HDL CHOLESTEROL 39 mg/dl (40-60); LDL CHOLESTEROL 36 mg/dL (9-159); TRIGLYCERIDES 62 mg/dl (<150); VLDL CHOLESTEROL 12 mg/dL (6-40)
[2020-07-03 08:00] VITALS: BP 154/94
--- NOTE | 2020-07-03 08:55 | NUR ---
ATIVAN GIVEN AT THIS TIME FOR C/O ANXIETY.
--- NOTE | 2020-07-03 09:00 | NUR ---
Pole Peeler in to talk to patient. Patient states lives at home with boyfriend. There are no steps in the home. Physician: [facility]acy[facility] Home health services: none Patient's level of ADLs: INDEPENDENT Patient has working utilities: all working DME: none Follow-up physician's appointment after d/c: will be made by hospitalist nurse director upon discharge Does patient want to access PORTAL?: no Discharge plan discussed with patient, she states she lives at home with her boyfriend, she is independent in adls and ambulation, she states she will return home when medically stable and denies any home needs. MACHELLE DIAZ
--- NOTE | 2020-07-03 09:11 | NUR ---
OFF FLOOR TO ULTRA SOUND.
--- NOTE | 2020-07-03 10:00 | NUR ---
ATIVAN EFFECTIVE PER PT.
--- NOTE | 2020-07-03 10:55 | NUR ---
NORCO GIVEN FOR C/O ABDM. PAIN. RATES 7/10 ON PAIN SCALE. WILL MONITOR.
[2020-07-03 12:00] VITALS: BP 131/75
[2020-07-03 12:30] LABS: BODY FLUID WBC 111 /uL
[2020-07-03 13:26] LABS: BF LYMPHOCYTES 22 %; BF MACROPHAGES 51 %; BF MESOTHELIALS 22 %; BF NEUTROPHILS 5 %
[2020-07-03 15:47] VITALS: BP 155/91
[2020-07-03 20:00] VITALS: BP 147/87
--- NOTE | 2020-07-03 20:00 | NUR ---
RESTING IN BED WITH NO ACUTE DISTRESS NOTED. RESPIRATIONS EASY. LUNGS DIMINISHED, CLEAR. PULSE OX 98% RA. ABD DISTENDED AND SEEPING, HYPO BOWEL SOUNDS. +1 BLE EDEMA, +2 PEDAL EDEMA. IV FLUIDS INFUSING PER ORDER. CALL LIGHT WITHIN REACH. NO VOICED COMPLAINTS.
--- NOTE | 2020-07-03 20:28 | NUR ---
REQUESTED AND RECEIVED MORPHINE IV PER PRN ORDER FOR COMPLAINTS OF ABD PAIN RATING AN 8. CALL LIGHT WITHIN REACH. WILL MONITOR
--- NOTE | 2020-07-03 21:00 | NUR ---
states earlier morphine "helping". call light within reach. no further voiced complaints
--- NOTE | 2020-07-03 22:59 | NUR ---
requested and received morphine iv per prn order for complaints of abd pain rating an 8. call light within reach. will monitor
--- NOTE | 2020-07-03 23:45 | NUR ---
states relief from earlier morphine. iv fluids maintained. call light within reach. no further voiced complaints
--- NOTE | 2020-07-03 23:50 | NUR ---
24 HR chart check completed.
[2020-07-04] VITALS: BP 150/90
--- NOTE | 2020-07-04 00:30 | NUR ---
RESTING IN BED. RESPIRATIONS EASY. IV FLUIDS MAINTAINED. CALL LIGHT WITHIN REACH
--- NOTE | 2020-07-04 02:20 | NUR ---
REQUESTED AND RECEIVED MORPHINE IV PER PRN ORDER FOR COMPLAINTS OF ABD PAIN RATING A 10. ALSO MEDICATED WITH ATIVAN IV TO ASSIST WITH ALCOHOL WIITHDRAWAL. ASSISTED TO BED AND POSITIONED FOR COMFORT. CALL LIGHT WITHIN REACH. WILL MONITOR FOR EFFECTIVENESS
--- NOTE | 2020-07-04 03:00 | NUR ---
REMAINS AWAKE BUT DROWSY. STATES EARLIER MEDS "HELPING"
--- NOTE | 2020-07-04 05:40 | NUR ---
PATIENT SNORING. UPON AWAKENING FOR AM MEDS, PATIENT IMMEDIATELY ASKS FOR IV MEDS. MEDICATED WITH MORPHINE IV PER PRN ORDER FOR COMPLAINTS OF ABD PAIN RATING A 10. IV FLUIDS MAINTAINED. CALL LIGHT WITHIN REACH. WILL MONITOR FOR EFFECTIVENESS
[2020-07-04 06:10] LABS: ALBUMIN 2.2 gm/dl (3.1-4.5); ALKALINE PHOSPHATASE 122 U/L (45-117); BUN 3 mg/dl (7-24); CHLORIDE 112 mmol/L (98-107); CREATININE 0.68 mg/dL (0.55-1.02); POTASSIUM 4.1 mmol/L (3.5-5.1); SGOT/AST 75 IU/L (3-35); SGPT/ALT 36 U/L (12-78); SODIUM 140 mmol/L (136-145); TOTAL PROTEIN 6.1 gm/dL (6.4-8.2)
[2020-07-04 06:25] LABS: MEAN CORPUSCULAR HGB 27.7 pg (27.0-31.0); MEAN CORPUSCULAR HGB CONC 29.6 g/dl (33.0-37.0); MEAN PLATELET VOLUME 11.3 fl (9.6-12.3); PLATELET COUNT AUTOMATED 124 10*3/uL (130-400); RED BLOOD COUNT 2.89 10*6/uL (4.10-5.10); RED CELL DISTRI WIDTH 21.9 % (0-14.5); WHITE BLOOD COUNT 3.6 10*3/uL (4.8-10.8)
--- NOTE | 2020-07-04 06:30 | NUR ---
MEDS APPEAR EFFECTIVE. RESTING WITH EYES CLOSED. RESPIRATIONS EASY. IV FLUIDS MAINTAINED. CALL LIGHT WITHIN REACH
[2020-07-04 07:09] LABS: MEAN CELL VOLUME 93.4 fl (81.0-99.0)
[2020-07-04 08:04] LABS: BASOPHILS 1 % (0-1); TOTAL CELLS COUNTED 100 #CELLS
[2020-07-04 08:05] LABS: BURR CELLS FEW; POLYCHROMASIA SLIGHT
[2020-07-04 08:06] LABS: PLATELET SUFFICIENCY LOW (NORMAL)
--- NOTE | 2020-07-04 08:24 | NUR ---
IVF'S DC'D PER EYE PHYSICIAN ORDERS.
[2020-07-04 10:07] LABS: ACID FAST SPEC PROCESSING Direct Inoculation (.)
--- NOTE | 2020-07-04 10:38 | NUR ---
PRN MORPHINE GIVEN PER PATIENT REQUEST FOR COMPLAINT OF 10/10 ABDOMINAL PAIN.
[2020-07-04 12:00] VITALS: BP 127/88
--- NOTE | 2020-07-04 12:35 | NUR ---
case management visits with patient, she states she will return home with her boyfriend and declines any home needs, patient also stated her 19 year old son is residing with her parent, patient denies any home needs
--- NOTE | 2020-07-04 14:12 | NUR ---
PATIENT GIVERN PRN MORPHINE AT THIS TIME FOR COMPLAINT OF 10/10 ABDOMINAL PAIN.
[2020-07-04 16:00] VITALS: BP 121/64
--- NOTE | 2020-07-04 19:00 | NUR ---
ASSUMED CARE FOR THIS PT AT THIS TIME. PT WALKING ABOUT IN ROOM AND IN HALLWAY. PT ADVISED TO STAY IN HER ROOM. HALF CUP OF ICE CHIPS GIVEN TO PT AT THIS TIME.
[2020-07-04 20:00] VITALS: BP 152/79
--- NOTE | 2020-07-04 21:30 | NUR ---
ENTERED PT'S ROOM TO ADMINISTER HS MEDS. PT HAS A LARGE STYROFOAM CUP OF WATER. WHEN THIS NURSE ASKED THE PT WHERE SHE GOT THE WATER FROM, PT REPLIED "FROM THE SINK". PT REMINDED OF FLUID RESTRICTION STATUS AND THIS NURSE THREW AWAY THE CUP. WILL CONTINUE TO MONITOR. CALL LIGHT IN REACH.
--- NOTE | 2020-07-04 21:34 | NUR ---
MEDICATED W/DULCOLAX PO FOR C/O CONSTIPATION.
[2020-07-05] VITALS: BP 119/70
--- NOTE | 2020-07-05 01:26 | NUR ---
PT MEDICATED W/MORPHINE IVP FOR C/O ABD PAIN 07/09. PT EATING ICE CHIPS IN BED AT THIS TIME. PT TELLS THIS NURSE THAT [facility] ABD IS RED/SWOLLEN/TENDER. WILL NOTIFY . CALL LIGHT IN REACH.
--- NOTE | 2020-07-05 02:26 | NUR ---
PT RESTING QUIETLY IN BED AT THIS TIME. PRN MORPHINE EFFECTIVE.
--- NOTE | 2020-07-05 04:33 | NUR ---
24 HR chart check completed.
--- NOTE | 2020-07-05 05:39 | NUR ---
PT C/O ABD PAIN 07/09. MEDICATED W/IVP MORPHINE. PT ASKED IF SHE COULD HAVE A HALF CUP OF WATER. PT REMINDED THAT SHE JUST HAD GINGERALE AND PT TEACHING GIVEN ON NEED FOR FLUID RESTRICTION. PT HAS A HALF A CUP OF ICE AT THIS TIME. CALL LIGHT IN REACH.
[2020-07-05 06:20] LABS: ALBUMIN 2.1 gm/dl (3.1-4.5); ALKALINE PHOSPHATASE 119 U/L (45-117); BUN 2 mg/dl (7-24); CHLORIDE 109 mmol/L (98-107); CREATININE 0.71 mg/dL (0.55-1.02); POTASSIUM 3.5 mmol/L (3.5-5.1); SGOT/AST 64 IU/L (3-35); SGPT/ALT 36 U/L (12-78); SODIUM 140 mmol/L (136-145); TOTAL PROTEIN 5.9 gm/dL (6.4-8.2)
--- NOTE | 2020-07-05 06:39 | NUR ---
PT AWAKE IN BED ASKING FOR FLUIDS. PT TEACHING GIVEN ON FLUID RESTRICTION. NO S/S OF DISTRESS NOTED. PRN PAIN MED EFFECTIVE.
[2020-07-05 06:42] LABS: BASO % 0.8 % (0.0-1.0); EOS # 0.1 10*3/uL (0.0-0.4); EOS % 2.2 % (1.0-4.0); HEMATOCRIT 25.7 % (37.0-47.0); LYMPH # 1.3 10*3/uL (1.3-4.4); LYMPH % 26.4 % (27.0-41.0); MEAN CELL VOLUME 90.5 fl (81.0-99.0); MEAN CORPUSCULAR HGB 28.2 pg (27.0-31.0); MEAN CORPUSCULAR HGB CONC 31.1 g/dl (33.0-37.0); MEAN PLATELET VOLUME 10.7 fl (9.6-12.3); MONO # 0.6 10*3/uL (0.1-1.0); MONO % 11.9 % (3.0-9.0); NEUT # 2.9 10*3/uL (2.3-7.9); NEUT % 58.3 % (47.0-73.0); RED BLOOD COUNT 2.84 10*6/uL (4.10-5.10); RED CELL DISTRI WIDTH 21.8 % (0-14.5); WHITE BLOOD COUNT 4.9 10*3/uL (4.8-10.8)
[2020-07-05 06:45] LABS: PLATELET COUNT AUTOMATED 189 10*3/uL (130-400)
[2020-07-05 08:00] VITALS: BP 131/67
[2020-07-05 12:00] VITALS: BP 146/84
--- NOTE | 2020-07-05 13:19 | NUR ---
Patient signed out AMA. Patient encouraged to stay and advised of possible consequences of premature discharge. Physician STEPHANIE and subway repair supervisor ALESSANDRA notified. Patient instructed what to do regarding care post-departure from the hospital; emergency phone numbers provided. Patent was accompanied by BOYFRIEND. IV REMOVED AND HEART MONITOR TAKEN OFF. JANAE SARAVIA
--- NOTE | 2020-07-05 13:19 | NUR ---
NOTIFIED PATIENT LEFT AMA.
== END 2020-07-05 13:19 | disposition left against medical advice (07) | DRG 280 ==
LOC: ED 21:38 → EDHOLD 07-02 01:51 → 4E 07-02 01:51
PROVIDERS: Emergency Medicine; Internal Medicine; Registered Nurse; ADMIT Internal Medicine
PROC: 0W9G3ZZ Drainage of Peritoneal Cavity, Percutaneous Approach (ICD-10-PCS; principal; 2020-07-03)
DX: K70.31 Alcoholic cirrhosis of liver with ascites (principal); F10.229 Alcohol dependence with intoxication, unspecified; E83.51 Hypocalcemia; E44.0 Moderate protein-calorie malnutrition; B19.20 Unspecified viral hepatitis C without hepatic coma; K21.9 Gastro-esophageal reflux disease without esophagitis; D64.9 Anemia, unspecified; F10.230 Alcohol dependence with withdrawal, uncomplicated; F41.1 Generalized anxiety disorder; E83.42 Hypomagnesemia; E43 Unspecified severe protein-calorie malnutrition; N30.00 Acute cystitis without hematuria; B95.2 Enterococcus as the cause of diseases classified elsewhere; F33.2 Major depressive disorder, recurrent severe without psychotic features; E66.9 Obesity, unspecified; Y90.9 Presence of alcohol in blood, level not specified; Z53.29 Procedure and treatment not carried out because of patient's decision for other reasons; Z88.1 Allergy status to other antibiotic agents; Z91.030 Bee allergy status; Z91.018 Allergy to other foods; Z80.42 Family history of malignant neoplasm of prostate; Z80.8 Family history of malignant neoplasm of other organs or systems; Z83.6 Family history of other diseases of the respiratory system; Z82.49 Family history of ischemic heart disease and other diseases of the circulatory system; Z83.3 Family history of diabetes mellitus; Z68.41 Body mass index [BMI] 40.0-44.9, adult

== ENCOUNTER 2020-07-16 11:44 | Inpatient (IN) | payer OTHER ==
[~2020-07-16] VITALS: Ht 162.6 cm; Wt 97.8 kg
[2020-07-16 11:51] VITALS: BP 128/83
[2020-07-16 12:25] LABS: BASO # 0.1 10*3/uL (0.0-0.1); HEMATOCRIT 28.2 % (37.0-47.0); LYMPH # 2.7 10*3/uL (1.3-4.4); LYMPH % 33.7 % (27.0-41.0); MEAN CORPUSCULAR HGB 26.5 pg (27.0-31.0); MEAN CORPUSCULAR HGB CONC 30.9 g/dl (33.0-37.0); MEAN PLATELET VOLUME 10.1 fl (9.6-12.3); MONO # 0.7 10*3/uL (0.1-1.0); NEUT # 4.4 10*3/uL (2.3-7.9); PLATELET COUNT AUTOMATED 286 10*3/uL (130-400); RED BLOOD COUNT 3.28 10*6/uL (4.10-5.10); RED CELL DISTRI WIDTH 20.1 % (0-14.5); WHITE BLOOD COUNT 7.9 10*3/uL (4.8-10.8)
[2020-07-16 12:36] LABS: ACT PARTIAL THROMBO TIME 34.6 SECONDS (20.0-32.1); INTERNATIONAL NORM RATIO 1.4 (2.0-3.5)
[2020-07-16 12:41] LABS: ALBUMIN 2.5 gm/dl (3.1-4.5); ALKALINE PHOSPHATASE 127 U/L (45-117); BUN 3 mg/dl (7-24); CHLORIDE 110 mmol/L (98-107); CREATININE 1.05 mg/dL (0.55-1.02); LIPASE 210 U/L (73-393); POTASSIUM 3.8 mmol/L (3.5-5.1); SGOT/AST 104 IU/L (3-35); SGPT/ALT 47 U/L (12-78); SODIUM 140 mmol/L (136-145); TOTAL PROTEIN 7.2 gm/dL (6.4-8.2); TROPONIN I 0.016 ng/ml (<0.045)
[2020-07-16 12:48] LABS: BETA-HCG, QUANT < 1.0 mIU/mL (1-3)
[2020-07-16 14:49] LABS: COLOR YELLOW (YELLOW)
[2020-07-16 14:50] LABS: BILIRUBIN NEGATIVE (NEGATIVE); BLOOD NEGATIVE (NEGATIVE); CLARITY CLEAR (CLEAR); GLUCOSE NEGATIVE (NEGATIVE); KETONE NEGATIVE (NEGATIVE); LEUKO ESTERASE NEGATIVE (NEGATIVE); NITRITE NEGATIVE (NEGATIVE); SPECIFIC GRAVITY 1.005 (1.005-1.030)
[2020-07-16 14:59] VITALS: BP 125/78
[2020-07-16 15:01] LABS: BACTERIA TRACE; RBC 0-2 rbc/hpf (0-2)
[2020-07-16 15:26] LABS: URINE CANNABINOIDS (THC) < 50 (50ng/ml); URINE COCAINE < 300 (300ng/ml); URINE METHADONE < 300 (300ng/ml); URINE OPIATES > 300 (300ng/ml)
[2020-07-16 15:27] LABS: URINE PHENCYCLIDINE < 25 (25ng/ml)
[2020-07-16 15:29] LABS: URINE AMPHETAMINES < 1000 (1000ng/ml); URINE BARBITURATES < 200 (200ng/ml); URINE BENZODIAZEPINES < 200 (200ng/ml)
[2020-07-16 15:54] VITALS: BP 132/82
[2020-07-16] MEDS ORDERED: ALDACTONE25 M1 PO (16:34)
[2020-07-16] MEDS ORDERED: PROTONIX40 MG PO (16:35)
[2020-07-16] MEDS ORDERED: LASIX20 MG PO (16:35)
[2020-07-16] MEDS ORDERED: EFFEXOR XR150 MG PO (16:37)
[2020-07-16 20:00] VITALS: BP 140/76
[2020-07-17] VITALS: BP 131/72
[2020-07-17 04:00] VITALS: BP 119/71
[2020-07-17 05:26] LABS: ACT PARTIAL THROMBO TIME 36.2 SECONDS (20.0-32.1); INTERNATIONAL NORM RATIO 1.3 (2.0-3.5)
[2020-07-17 05:52] LABS: ALBUMIN 2.4 gm/dl (3.1-4.5); BUN 3 mg/dl (7-24); CHLORIDE 111 mmol/L (98-107); CREATININE 0.84 mg/dL (0.55-1.02); POTASSIUM 3.7 mmol/L (3.5-5.1); SGOT/AST 119 IU/L (3-35); SGPT/ALT 44 U/L (12-78); SODIUM 139 mmol/L (136-145); TOTAL PROTEIN 6.6 gm/dL (6.4-8.2)
[2020-07-17 05:58] LABS: ALKALINE PHOSPHATASE 148 U/L (45-117); BASO # 0.1 10*3/uL (0.0-0.1); EOS # 0.1 10*3/uL (0.0-0.4); EOS % 1.4 % (1.0-4.0); FREE T4 1.28 ng/dl (0.76-1.46); HEMATOCRIT 26.1 % (37.0-47.0); LYMPH # 2.3 10*3/uL (1.3-4.4); LYMPH % 46.5 % (27.0-41.0); MEAN CELL VOLUME 87.3 fl (81.0-99.0); MEAN CORPUSCULAR HGB 26.4 pg (27.0-31.0); MEAN CORPUSCULAR HGB CONC 30.3 g/dl (33.0-37.0); MEAN PLATELET VOLUME 10.4 fl (9.6-12.3); MONO # 0.6 10*3/uL (0.1-1.0); MONO % 11.1 % (3.0-9.0); RED BLOOD COUNT 2.99 10*6/uL (4.10-5.10)
[2020-07-17 06:01] LABS: PLATELET COUNT AUTOMATED 200 10*3/uL (130-400)
[2020-07-17 07:45] LABS: VITAMIN D, 25-HYDROXY 32.9 ng/mL (30-100)
[2020-07-17 08:00] VITALS: BP 143/83
[2020-07-17 12:00] VITALS: BP 138/75
[2020-07-17 16:00] VITALS: BP 147/82
[2020-07-17 20:00] VITALS: BP 146/87
[2020-07-18] VITALS: BP 140/78
[2020-07-18 06:09] LABS: BASO % 0.6 % (0.0-1.0); EOS # 0.1 10*3/uL (0.0-0.4); EOS % 2.6 % (1.0-4.0); HEMATOCRIT 27.6 % (37.0-47.0); LYMPH # 1.2 10*3/uL (1.3-4.4); LYMPH % 33.5 % (27.0-41.0); MEAN CELL VOLUME 85.2 fl (81.0-99.0); MEAN CORPUSCULAR HGB 26.2 pg (27.0-31.0); MEAN CORPUSCULAR HGB CONC 30.8 g/dl (33.0-37.0); MEAN PLATELET VOLUME 10.4 fl (9.6-12.3); MONO # 0.5 10*3/uL (0.1-1.0); MONO % 13.9 % (3.0-9.0); NEUT # 1.7 10*3/uL (2.3-7.9); NEUT % 49.4 % (47.0-73.0); PLATELET COUNT AUTOMATED 143 10*3/uL (130-400); RED BLOOD COUNT 3.24 10*6/uL (4.10-5.10); RED CELL DISTRI WIDTH 19.2 % (0-14.5); WHITE BLOOD COUNT 3.5 10*3/uL (4.8-10.8)
[2020-07-18 06:13] LABS: ALBUMIN 2.5 gm/dl (3.1-4.5); ALKALINE PHOSPHATASE 153 U/L (45-117); BUN 4 mg/dl (7-24); CHLORIDE 110 mmol/L (98-107); CREATININE 0.75 mg/dL (0.55-1.02); POTASSIUM 4.1 mmol/L (3.5-5.1); SGOT/AST 106 IU/L (3-35); SGPT/ALT 43 U/L (12-78); SODIUM 140 mmol/L (136-145); TOTAL PROTEIN 7.2 gm/dL (6.4-8.2)
[2020-07-18 08:00] VITALS: BP 145/81
[2020-07-18 08:39] VITALS: BP 144/88
[2020-07-18 12:00] VITALS: BP 133/75
[2020-07-18 16:00] VITALS: BP 130/79
[2020-07-18 20:00] VITALS: BP 126/73
[2020-07-19] VITALS: BP 139/87
[2020-07-19 06:32] LABS: BASO % 0.7 % (0.0-1.0); EOS # 0.3 10*3/uL (0.0-0.4); EOS % 7.3 % (1.0-4.0); HEMATOCRIT 27.4 % (37.0-47.0); LYMPH # 1.7 10*3/uL (1.3-4.4); LYMPH % 39.4 % (27.0-41.0); MEAN CELL VOLUME 85.6 fl (81.0-99.0); MEAN CORPUSCULAR HGB 26.6 pg (27.0-31.0); MEAN PLATELET VOLUME 10.5 fl (9.6-12.3); MONO # 0.5 10*3/uL (0.1-1.0); MONO % 12.4 % (3.0-9.0); NEUT # 1.8 10*3/uL (2.3-7.9); PLATELET COUNT AUTOMATED 144 10*3/uL (130-400); RED CELL DISTRI WIDTH 18.9 % (0-14.5); WHITE BLOOD COUNT 4.4 10*3/uL (4.8-10.8)
[2020-07-19 06:35] LABS: ALBUMIN 2.6 gm/dl (3.1-4.5); BUN 5 mg/dl (7-24); CHLORIDE 106 mmol/L (98-107); CREATININE 0.76 mg/dL (0.55-1.02); POTASSIUM 4.1 mmol/L (3.5-5.1); SGOT/AST 83 IU/L (3-35); SGPT/ALT 37 U/L (12-78); SODIUM 137 mmol/L (136-145); TOTAL PROTEIN 7.2 gm/dL (6.4-8.2)
[2020-07-19 06:36] LABS: ALKALINE PHOSPHATASE 143 U/L (45-117)
[2020-07-19 08:00] VITALS: BP 150/89
[2020-07-20] MEDS ORDERED: THIAMINE HCL100 MG PO (23:42)
== END 2020-07-19 09:19 | disposition home or self-care (01) | DRG 775 ==
LOC: ED 11:44 → ICCU 14:38 → EDHOLD 14:38 → ICCU 14:38 → 5E 14:38 → ICCU 14:59 → 5E 07-17 20:53
PROVIDERS: Emergency Medicine; Hospitalist; ADMIT Internal Medicine
PROC: 0W9G3ZZ Drainage of Peritoneal Cavity, Percutaneous Approach (ICD-10-PCS; principal; 2020-07-17)
DX: F10.239 Alcohol dependence with withdrawal, unspecified (principal); F10.229 Alcohol dependence with intoxication, unspecified; K70.31 Alcoholic cirrhosis of liver with ascites; Y90.8 Blood alcohol level of 240 mg/100 ml or more; R65.10 Systemic inflammatory response syndrome (SIRS) of non-infectious origin without acute organ dysfunction; N17.0 Acute kidney failure with tubular necrosis; D64.9 Anemia, unspecified; F41.1 Generalized anxiety disorder; E43 Unspecified severe protein-calorie malnutrition; F17.210 Nicotine dependence, cigarettes, uncomplicated; G47.30 Sleep apnea, unspecified; F31.9 Bipolar disorder, unspecified; Z53.29 Procedure and treatment not carried out because of patient's decision for other reasons; R73.9 Hyperglycemia, unspecified; E87.2 Acidosis; E80.6 Other disorders of bilirubin metabolism; E78.2 Mixed hyperlipidemia; K21.9 Gastro-esophageal reflux disease without esophagitis; I10 Essential (primary) hypertension; E87.8 Other disorders of electrolyte and fluid balance, not elsewhere classified; R00.0 Tachycardia, unspecified; K86.1 Other chronic pancreatitis; Z82.49 Family history of ischemic heart disease and other diseases of the circulatory system; Z83.3 Family history of diabetes mellitus; Z83.6 Family history of other diseases of the respiratory system; Z82.0 Family history of epilepsy and other diseases of the nervous system; R10.9 Unspecified abdominal pain; Z68.37 Body mass index [BMI] 37.0-37.9, adult

== ENCOUNTER 2020-07-20 03:10 | Emergency (ER) | payer OTHER ==
[~2020-07-20] VITALS: Ht 162.5 cm; Wt 92.1 kg
[~2020-07-20 03:10] MED LIST changes: +ALDACTONE25 M1 PO; +LASIX20 MG PO
[2020-07-20 04:10] LABS: BASO % 0.6 % (0.0-1.0); EOS # 0.3 10*3/uL (0.0-0.4); EOS % 5.8 % (1.0-4.0); HEMATOCRIT 23.6 % (37.0-47.0); LYMPH # 1.7 10*3/uL (1.3-4.4); LYMPH % 35.5 % (27.0-41.0); MEAN CORPUSCULAR HGB 26.3 pg (27.0-31.0); MEAN CORPUSCULAR HGB CONC 31.4 g/dl (33.0-37.0); MEAN PLATELET VOLUME 10.6 fl (9.6-12.3); MONO # 0.5 10*3/uL (0.1-1.0); MONO % 10.5 % (3.0-9.0); NEUT # 2.3 10*3/uL (2.3-7.9); NEUT % 47.4 % (47.0-73.0); PLATELET COUNT AUTOMATED 133 10*3/uL (130-400); RED BLOOD COUNT 2.81 10*6/uL (4.10-5.10); RED CELL DISTRI WIDTH 19.1 % (0-14.5); WHITE BLOOD COUNT 4.8 10*3/uL (4.8-10.8)
[2020-07-20 04:26] LABS: ALBUMIN 2.3 gm/dl (3.1-4.5); ALKALINE PHOSPHATASE 136 U/L (45-117); BUN 8 mg/dl (7-24); CHLORIDE 99 mmol/L (98-107); CREATININE 1.16 mg/dL (0.55-1.02); POTASSIUM 3.2 mmol/L (3.5-5.1); SGOT/AST 79 IU/L (3-35); SGPT/ALT 37 U/L (12-78); SODIUM 133 mmol/L (136-145); TOTAL PROTEIN 6.6 gm/dL (6.4-8.2)
[2020-07-20 04:30] LABS: BILIRUBIN NEGATIVE (NEGATIVE); BLOOD NEGATIVE (NEGATIVE); CLARITY SL CLOUDY (CLEAR); COLOR YELLOW (YELLOW); GLUCOSE NEGATIVE (NEGATIVE); KETONE NEGATIVE (NEGATIVE); LEUKO ESTERASE 1+ (NEGATIVE); NITRITE NEGATIVE (NEGATIVE); SPECIFIC GRAVITY 1.015 (1.005-1.030)
[2020-07-20 04:37] LABS: URINE AMPHETAMINES < 1000 (1000ng/ml); URINE BARBITURATES < 200 (200ng/ml); URINE BENZODIAZEPINES < 200 (200ng/ml); URINE CANNABINOIDS (THC) < 50 (50ng/ml); URINE COCAINE < 300 (300ng/ml); URINE METHADONE < 300 (300ng/ml); URINE OPIATES > 300 (300ng/ml); URINE PHENCYCLIDINE < 25 (25ng/ml)
[2020-07-20 04:38] LABS: EPITHELIAL CELLS 31-40
[2020-07-20 04:39] LABS: BACTERIA 1+; WBC 16-20 wbc/hpf (0-5)
[2020-07-20] MEDS ORDERED: THIAMINE HCL100 MG PO (23:42)
== END 2020-07-20 05:45 | disposition left against medical advice (07) ==
LOC: ED 03:10
PROVIDERS: Emergency Medicine
DX: K70.9 Alcoholic liver disease, unspecified (principal); K70.31 Alcoholic cirrhosis of liver with ascites; F10.129 Alcohol abuse with intoxication, unspecified; E72.20 Disorder of urea cycle metabolism, unspecified; F17.200 Nicotine dependence, unspecified, uncomplicated; Z88.1 Allergy status to other antibiotic agents; Z91.018 Allergy to other foods; Z79.899 Other long term (current) drug therapy; Z91.030 Bee allergy status; Y90.9 Presence of alcohol in blood, level not specified

== ENCOUNTER 2020-07-20 18:02 | Emergency (ER) | payer OTHER ==
[~2020-07-20] VITALS: Ht 152.4 cm; Wt 94.3 kg
[2020-07-20 19:12] LABS: URINE AMPHETAMINES < 1000 (1000ng/ml); URINE BARBITURATES < 200 (200ng/ml); URINE BENZODIAZEPINES < 200 (200ng/ml); URINE CANNABINOIDS (THC) < 50 (50ng/ml); URINE COCAINE < 300 (300ng/ml); URINE METHADONE < 300 (300ng/ml); URINE OPIATES > 300 (300ng/ml)
[2020-07-20 19:18] LABS: URINE PHENCYCLIDINE < 25 (25ng/ml)
[2020-07-20 19:20] LABS: BILIRUBIN 1+; CLARITY SL CLOUDY (CLEAR); COLOR YELLOW (YELLOW); GLUCOSE 3+; KETONE NEGATIVE; SPECIFIC GRAVITY 1.015 (1.005-1.030)
[2020-07-20 19:21] LABS: BLOOD NEGATIVE (NEGATIVE); LEUKO ESTERASE NEGATIVE (NEGATIVE); NITRITE NEGATIVE (NEGATIVE)
[2020-07-20 19:24] LABS: BASO % 0.2 % (0.0-1.0); EOS % 0.2 % (1.0-4.0); HEMATOCRIT 25.2 % (37.0-47.0); LYMPH # 0.7 10*3/uL (1.3-4.4); LYMPH % 17.6 % (27.0-41.0); MEAN CELL VOLUME 83.7 fl (81.0-99.0); MEAN CORPUSCULAR HGB 26.9 pg (27.0-31.0); MEAN CORPUSCULAR HGB CONC 32.1 g/dl (33.0-37.0); MEAN PLATELET VOLUME 11.1 fl (9.6-12.3); MONO # 0.2 10*3/uL (0.1-1.0); NEUT # 3.1 10*3/uL (2.3-7.9); NEUT % 77.8 % (47.0-73.0); PLATELET COUNT AUTOMATED 162 10*3/uL (130-400); RED BLOOD COUNT 3.01 10*6/uL (4.10-5.10); RED CELL DISTRI WIDTH 19.5 % (0-14.5)
[2020-07-20 19:29] LABS: BACTERIA 2+; RBC 0-2 rbc/hpf (0-2)
[2020-07-20 19:34] LABS: ACT PARTIAL THROMBO TIME 35.1 SECONDS (20.0-32.1); INTERNATIONAL NORM RATIO 1.4 (2.0-3.5)
[2020-07-20 19:39] LABS: ALBUMIN 2.5 gm/dl (3.1-4.5); ALKALINE PHOSPHATASE 153 U/L (45-117); BUN 10 mg/dl (7-24); CHLORIDE 96 mmol/L (98-107); CREATININE 1.07 mg/dL (0.55-1.02); LIPASE 148 U/L (73-393); POTASSIUM 3.6 mmol/L (3.5-5.1); SGOT/AST 83 IU/L (3-35); SGPT/ALT 39 U/L (12-78); SODIUM 130 mmol/L (136-145); TOTAL PROTEIN 7.2 gm/dL (6.4-8.2)
[2020-07-20] MEDS ORDERED: THIAMINE HCL100 MG PO (23:42)
== END 2020-07-20 23:59 | disposition home or self-care (01) ==
LOC: ED 18:02
PROVIDERS: Emergency Medicine
DX: F10.129 Alcohol abuse with intoxication, unspecified (principal); R10.84 Generalized abdominal pain; E66.01 Morbid (severe) obesity due to excess calories; K21.9 Gastro-esophageal reflux disease without esophagitis; I10 Essential (primary) hypertension; E78.5 Hyperlipidemia, unspecified; F17.200 Nicotine dependence, unspecified, uncomplicated; Z91.030 Bee allergy status; Z88.1 Allergy status to other antibiotic agents; Z91.018 Allergy to other foods; Z79.899 Other long term (current) drug therapy; Z87.19 Personal history of other diseases of the digestive system; Y90.9 Presence of alcohol in blood, level not specified

== ENCOUNTER 2020-07-28 13:17 | Inpatient (IN) | payer OTHER ==
[~2020-07-28] VITALS: Ht 162.6 cm; Wt 91.3 kg
[~2020-07-28 13:17] MED LIST changes: +THIAMINE HCL100 MG PO
[2020-07-28 13:18] VITALS: BP 132/69
[2020-07-28 13:57] LABS: BASO % 0.5 % (0.0-1.0); EOS # 0.1 10*3/uL (0.0-0.4); HEMATOCRIT 25.7 % (37.0-47.0); LYMPH # 1.9 10*3/uL (1.3-4.4); LYMPH % 33.2 % (27.0-41.0); MEAN CELL VOLUME 84.8 fl (81.0-99.0); MEAN CORPUSCULAR HGB 25.7 pg (27.0-31.0); MEAN CORPUSCULAR HGB CONC 30.4 g/dl (33.0-37.0); MEAN PLATELET VOLUME 10.5 fl (9.6-12.3); MONO # 0.8 10*3/uL (0.1-1.0); MONO % 13.7 % (3.0-9.0); NEUT % 51.4 % (47.0-73.0); PLATELET COUNT AUTOMATED 130 10*3/uL (130-400); RED BLOOD COUNT 3.03 10*6/uL (4.10-5.10); WHITE BLOOD COUNT 5.8 10*3/uL (4.8-10.8)
[2020-07-28 14:13] LABS: ALBUMIN 2.5 gm/dl (3.1-4.5); ALKALINE PHOSPHATASE 155 U/L (45-117); BUN 3 mg/dl (7-24); CHLORIDE 105 mmol/L (98-107); CREATININE 0.86 mg/dL (0.55-1.02); POTASSIUM 3.8 mmol/L (3.5-5.1); SGOT/AST 129 IU/L (3-35); SGPT/ALT 45 U/L (12-78); SODIUM 137 mmol/L (136-145); TOTAL PROTEIN 7.2 gm/dL (6.4-8.2)
--- NOTE | 2020-07-28 15:20 | NUR ---
2 SMALL WHITE PILLS FOUND LOOSE IN PTS BED. THEY WERE IDENTIFIED ATIVAN 1 MG TABS. THEY WERE LABLED WITH HER NAME AND SENT TO THE PHARMACY. PTS POCKETS WERE CHECKED. NO OTHER PILLS FOUND. SHE STATES SHE TOOK 1-2 TODAY AND THAT THEY ARE PRESCRIBED TO HER.
--- NOTE | 2020-07-28 15:47 | NUR ---
PT UP ASKING TO LEAVE. INFORMED SHE MUST FIND SOMEONE TO SIGN HER OUT. SHE HAS MADE CALLS BUT CANT FIND ANYONE. RETURNED TO BED. 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
--- NOTE | 2020-07-28 17:00 | NUR ---
RESTING IN BED WITH EYES CLOSED. RESPS ARE EASY AND NON LABORED.
--- NOTE | 2020-07-28 17:39 | NUR ---
CONTINUES TO REST QUIETLY IN BED. RESPS ARE EASY AND NON LABORED.
[2020-07-28 18:13] VITALS: BP 124/71
--- NOTE | 2020-07-28 18:14 | NUR ---
CONTINUES TO REST QUIETLY WITH EYES CLOSED. RESPS ARE EASY AND NON LABORED.
--- NOTE | 2020-07-28 19:00 | NUR ---
Transfer of care from Jess starkey.
--- NOTE | 2020-07-28 19:20 | NUR ---
In to see pt at this time.Pt talking to family on phone and drinking water.Pt went back to sleep and at this time,
[2020-07-28 19:25] VITALS: BP 126/78
--- NOTE | 2020-07-28 20:09 | NUR ---
Pt still currently sleeping at this time.
[2020-07-28 20:29] VITALS: BP 133/85
--- NOTE | 2020-07-28 20:31 | NUR ---
Pt still sleeping at this time.
--- NOTE | 2020-07-28 22:29 | NUR ---
Iv attempt times x2 and unable to at this time.
[2020-07-28 22:31] VITALS: BP 105/69
[2020-07-28 23:27] VITALS: BP 139/72
[2020-07-29] VITALS: BP 113/55
--- NOTE | 2020-07-29 | NUR ---
Pt still sleeping at this time.
--- NOTE | 2020-07-29 02:00 | NUR ---
Pt still sleeping at this time.
--- NOTE | 2020-07-29 03:30 | NUR ---
Pt up to the bathroom and voided without diffculty.Pt has 22 gauge with good blood return still infusing iv fluids at this time.Pt is also drinking water and does not need anything at this time.
--- NOTE | 2020-07-29 03:35 | NUR ---
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
[2020-07-29 03:48] VITALS: BP 154/76
[2020-07-29 03:53] LABS: URINE AMPHETAMINES < 1000 (1000ng/ml); URINE BARBITURATES < 200 (200ng/ml); URINE BENZODIAZEPINES < 200 (200ng/ml); URINE CANNABINOIDS (THC) < 50 (50ng/ml); URINE COCAINE < 300 (300ng/ml); URINE METHADONE < 300 (300ng/ml); URINE OPIATES < 300 (300ng/ml)
[2020-07-29 03:54] LABS: URINE PHENCYCLIDINE < 25 (25ng/ml)
[2020-07-29 05:50] VITALS: BP 141/89
--- NOTE | 2020-07-29 05:51 | NUR ---
Pt currently sleeping at this time and 22 gauge intact still on lfa at this time with good blood return ans clamped at this time.
--- NOTE | 2020-07-29 07:07 | NUR ---
Transfer of care to Jess starkey.
--- NOTE | 2020-07-29 07:38 | NUR ---
RESTING IN BED. CALL LIGHT IN REACH.
[2020-07-29 08:20] VITALS: BP 157/89
--- NOTE | 2020-07-29 08:20 | NUR ---
A 39, admitted to [facility], under the services of KERA Cordova DO with a diagnosis of ALCOHOL WIHDRAWL. Chief complaint is NAUSEA , DIARRHEA , DIZZINESS.. Patient arrived via stretcher from ER. Monitor applied. Initial assessment completed. Vital signs taken and recorded. KERA CORDOVA DO notified of admission to the unit. Orders received. See assessment for past medical history, medications and allergies. Patient and/or family oriented to unit. [facility] visitation policy reviewed. Clothing/patient valuable form completed. ALYSSIA AUGUST
[2020-07-29] MEDS ORDERED: SAPHRIS2.5 MG SL (09:06)
[2020-07-29] MEDS ORDERED: PRISTIQ50 MG PO (09:07)
[2020-07-29] MEDS ORDERED: 'CLONIDINE0.1 MG PO (09:07)
--- NOTE | 2020-07-29 10:30 | NUR ---
Medicated for abdominal cramping and anxiety.
[2020-07-29 10:32] LABS: BASO % 0.8 % (0.0-1.0); EOS # 0.1 10*3/uL (0.0-0.4); EOS % 2.8 % (1.0-4.0); HEMATOCRIT 27.5 % (37.0-47.0); LYMPH % 28.8 % (27.0-41.0); MEAN CELL VOLUME 84.6 fl (81.0-99.0); MEAN CORPUSCULAR HGB 26.5 pg (27.0-31.0); MEAN CORPUSCULAR HGB CONC 31.3 g/dl (33.0-37.0); MEAN PLATELET VOLUME 10.8 fl (9.6-12.3); MONO # 0.3 10*3/uL (0.1-1.0); MONO % 8.9 % (3.0-9.0); NEUT # 2.1 10*3/uL (2.3-7.9); NEUT % 58.4 % (47.0-73.0); PLATELET COUNT AUTOMATED 122 10*3/uL (130-400); RED BLOOD COUNT 3.25 10*6/uL (4.10-5.10); RED CELL DISTRI WIDTH 20.2 % (0-14.5); WHITE BLOOD COUNT 3.6 10*3/uL (4.8-10.8)
[2020-07-29 10:40] LABS: INTERNATIONAL NORM RATIO 1.3 (2.0-3.5)
[2020-07-29 10:47] LABS: ALBUMIN 2.8 gm/dl (3.1-4.5); ALKALINE PHOSPHATASE 162 U/L (45-117); BUN 4 mg/dl (7-24); CHLORIDE 109 mmol/L (98-107); CREATININE 0.72 mg/dL (0.55-1.02); POTASSIUM 4.4 mmol/L (3.5-5.1); SGOT/AST 136 IU/L (3-35); SGPT/ALT 47 U/L (12-78); SODIUM 141 mmol/L (136-145); TOTAL PROTEIN 7.5 gm/dL (6.4-8.2)
--- NOTE | 2020-07-29 11:12 | NUR ---
[facility] was notified of consult, Stated they would see pt. in the morning. Pt. dressed w/ monitor removed , stated she was leaving, Dr. Gavin was notifed and Pt's mother was clled ( no answer). JAG Daniel was called and asked that she remain here until his car is fixed and then he would be in to get her. She was notified and spoke w/ Daniel . Replaced her monitor and returned to bed. Currently ordering lunch.
[2020-07-29 12:00] VITALS: BP 148/80
--- NOTE | 2020-07-29 15:46 | NUR ---
Medicated for c/o nausea.
[2020-07-29 16:00] VITALS: BP 148/78
--- NOTE | 2020-07-29 16:31 | NUR ---
Periodically crying and whimpering, states want to go home. discussed transportation to home. BF Daniel called in stating that he wanted her to remain 1 more night as he is unable to repair the car today. She stated she does not wish to stay. Daniel stated that he would call back at 6 pm and was attempting to find her a ride home.
--- NOTE | 2020-07-29 18:11 | NUR ---
Pt's mother Lyndsey called in and stated that she would provide transportation . Pt. aware and signed AMA. AMA discharge signed and IV /HL was removed. Pt's mother is to call on her arrival here . General discharge instruction were given. pt. voiced understanding and stated that she would really try to quit drinking. Awaiting ride.
--- NOTE | 2020-07-29 18:22 | NUR ---
Discharged to home.
== END 2020-07-29 18:22 | disposition left against medical advice (07) | DRG 770 ==
LOC: ED 13:17 → ICCU 07-29 07:47 → EDHOLD 07-29 07:47 → ICCU 07-29 07:54
PROVIDERS: Emergency Medicine; Internal Medicine; ADMIT Family Medicine; ATTEND Family Medicine
DX: F10.230 Alcohol dependence with withdrawal, uncomplicated (principal); K70.31 Alcoholic cirrhosis of liver with ascites; K21.9 Gastro-esophageal reflux disease without esophagitis; F32.9 Major depressive disorder, single episode, unspecified; R65.10 Systemic inflammatory response syndrome (SIRS) of non-infectious origin without acute organ dysfunction; F17.210 Nicotine dependence, cigarettes, uncomplicated; B19.20 Unspecified viral hepatitis C without hepatic coma; G47.30 Sleep apnea, unspecified; I10 Essential (primary) hypertension; E78.2 Mixed hyperlipidemia; F41.1 Generalized anxiety disorder; E43 Unspecified severe protein-calorie malnutrition; E87.8 Other disorders of electrolyte and fluid balance, not elsewhere classified; D69.6 Thrombocytopenia, unspecified; D50.9 Iron deficiency anemia, unspecified; Z88.1 Allergy status to other antibiotic agents; Z91.030 Bee allergy status; Z91.018 Allergy to other foods; Z79.899 Other long term (current) drug therapy; Z80.8 Family history of malignant neoplasm of other organs or systems; Z83.3 Family history of diabetes mellitus; Z82.49 Family history of ischemic heart disease and other diseases of the circulatory system

== ENCOUNTER 2020-08-01 13:56 | Emergency (ER) | payer OTHER ==
[~2020-08-01] VITALS: Ht 162.5 cm; Wt 91.2 kg
[~2020-08-01 13:56] MED LIST changes: +PRISTIQ50 MG PO
[2020-08-01] MEDS ORDERED: AUGMENTIN 875875 MG PO (14:26)
== END 2020-08-01 14:54 | disposition home or self-care (01) ==
LOC: ED 13:56
DX: K04.7 Periapical abscess without sinus (principal); F17.200 Nicotine dependence, unspecified, uncomplicated; Z91.018 Allergy to other foods; Z91.030 Bee allergy status; Z88.1 Allergy status to other antibiotic agents; Z79.899 Other long term (current) drug therapy

== ENCOUNTER 2020-08-07 05:33 | Emergency (ER) | payer OTHER ==
[~2020-08-07] VITALS: Ht 162.5 cm; Wt 94.3 kg
[~2020-08-07 05:33] MED LIST changes: +AUGMENTIN 875875 MG PO
[2020-08-07 07:02] LABS: BILIRUBIN NEGATIVE; BLOOD NEGATIVE (NEGATIVE); CLARITY CLEAR (CLEAR); COLOR YELLOW (YELLOW); GLUCOSE NEGATIVE; KETONE NEGATIVE; LEUKO ESTERASE TRACE (NEGATIVE); NITRITE NEGATIVE (NEGATIVE); SPECIFIC GRAVITY < 1.005 (1.001-1.030)
[2020-08-07 07:08] LABS: BACTERIA TRACE
[2020-08-07 07:15] LABS: BASO % 0.6 % (0.0-1.0); EOS # 0.2 10*3/uL (0.0-0.4); EOS % 4.1 % (1.0-4.0); HEMATOCRIT 24.4 % (37.0-47.0); LYMPH # 1.6 10*3/uL (1.3-4.4); LYMPH % 30.8 % (27.0-41.0); MEAN CELL VOLUME 83.8 fl (81.0-99.0); MEAN CORPUSCULAR HGB 26.1 pg (27.0-31.0); MEAN CORPUSCULAR HGB CONC 31.1 g/dl (33.0-37.0); MEAN PLATELET VOLUME 10.9 fl (9.6-12.3); MONO # 0.7 10*3/uL (0.1-1.0); MONO % 14.6 % (3.0-9.0); NEUT # 2.5 10*3/uL (2.3-7.9); NEUT % 49.7 % (47.0-73.0); PLATELET COUNT AUTOMATED 126 10*3/uL (130-400); RED BLOOD COUNT 2.91 10*6/uL (4.10-5.10); RED CELL DISTRI WIDTH 20.1 % (0-14.5); WHITE BLOOD COUNT 5.1 10*3/uL (4.8-10.8)
[2020-08-07 07:32] LABS: ALBUMIN 2.5 gm/dl (3.1-4.5); ALKALINE PHOSPHATASE 182 U/L (45-117); BUN 7 mg/dl (7-24); CHLORIDE 108 mmol/L (98-107); CREATININE 0.89 mg/dL (0.55-1.02); LIPASE 389 U/L (73-393); POTASSIUM 3.6 mmol/L (3.5-5.1); SGOT/AST 82 IU/L (3-35); SGPT/ALT 34 U/L (12-78); SODIUM 139 mmol/L (136-145); TOTAL PROTEIN 7.4 gm/dL (6.4-8.2)
== END 2020-08-07 09:06 | disposition left against medical advice (07) ==
LOC: ED 05:33
PROVIDERS: Emergency Medicine
DX: R10.11 Right upper quadrant pain (principal); R10.13 Epigastric pain; R11.2 Nausea with vomiting, unspecified; K21.9 Gastro-esophageal reflux disease without esophagitis; I10 Essential (primary) hypertension; E78.5 Hyperlipidemia, unspecified; E66.9 Obesity, unspecified; F17.210 Nicotine dependence, cigarettes, uncomplicated; Z91.018 Allergy to other foods; Z91.013 Allergy to seafood; Z88.1 Allergy status to other antibiotic agents; Z88.8 Allergy status to other drugs, medicaments and biological substances; Z79.899 Other long term (current) drug therapy; Z68.39 Body mass index [BMI] 39.0-39.9, adult

== ENCOUNTER 2020-08-08 13:14 | Emergency (ER) | payer OTHER ==
[~2020-08-08] VITALS: Wt 93.4 kg
== END 2020-08-08 13:45 | disposition left against medical advice (07) ==
LOC: ED 13:14
DX: R10.13 Epigastric pain (principal); Z53.21 Procedure and treatment not carried out due to patient leaving prior to being seen by health care provider

== ENCOUNTER 2020-08-08 23:50 | Emergency (ER) | payer OTHER ==
[~2020-08-08] VITALS: Wt 93.4 kg
[2020-08-09 01:04] LABS: BASO # 0.1 10*3/uL (0.0-0.1); BASO % 0.8 % (0.0-1.0); EOS # 0.1 10*3/uL (0.0-0.4); EOS % 1.6 % (1.0-4.0); HEMATOCRIT 25.3 % (37.0-47.0); LYMPH # 2.6 10*3/uL (1.3-4.4); LYMPH % 40.3 % (27.0-41.0); MEAN CORPUSCULAR HGB 25.9 pg (27.0-31.0); MEAN CORPUSCULAR HGB CONC 31.2 g/dl (33.0-37.0); MEAN PLATELET VOLUME 11.1 fl (9.6-12.3); MONO # 0.8 10*3/uL (0.1-1.0); MONO % 12.3 % (3.0-9.0); NEUT # 2.9 10*3/uL (2.3-7.9); NEUT % 44.7 % (47.0-73.0); RED BLOOD COUNT 3.05 10*6/uL (4.10-5.10); RED CELL DISTRI WIDTH 20.5 % (0-14.5); WHITE BLOOD COUNT 6.4 10*3/uL (4.8-10.8)
[2020-08-09 01:06] LABS: PLATELET COUNT AUTOMATED 178 10*3/uL (130-400)
[2020-08-09 01:20] LABS: ALBUMIN 2.6 gm/dl (3.1-4.5); ALKALINE PHOSPHATASE 185 U/L (45-117); BUN 5 mg/dl (7-24); CHLORIDE 107 mmol/L (98-107); CREATININE 0.83 mg/dL (0.55-1.02); LIPASE 306 U/L (73-393); POTASSIUM 3.7 mmol/L (3.5-5.1); SGOT/AST 113 IU/L (3-35); SGPT/ALT 41 U/L (12-78); SODIUM 137 mmol/L (136-145); TOTAL PROTEIN 7.4 gm/dL (6.4-8.2)
== END 2020-08-09 03:06 | disposition home or self-care (01) ==
LOC: ED 23:50
PROVIDERS: Emergency Medicine
DX: K29.70 Gastritis, unspecified, without bleeding (principal); K21.9 Gastro-esophageal reflux disease without esophagitis; I10 Essential (primary) hypertension; E78.5 Hyperlipidemia, unspecified; E66.9 Obesity, unspecified; F17.200 Nicotine dependence, unspecified, uncomplicated; Z91.030 Bee allergy status; Z88.1 Allergy status to other antibiotic agents; Z91.018 Allergy to other foods; Z88.8 Allergy status to other drugs, medicaments and biological substances; Z79.899 Other long term (current) drug therapy; Z68.39 Body mass index [BMI] 39.0-39.9, adult

== ENCOUNTER 2020-08-19 13:24 | Emergency (ER) | payer OTHER ==
[~2020-08-19] VITALS: Ht 162.5 cm; Wt 95.7 kg
[2020-08-19 13:52] LABS: BASO # 0.1 10*3/uL (0.0-0.1); BASO % 1.5 % (0.0-1.0); EOS % 0.5 % (1.0-4.0); HEMATOCRIT 28.5 % (37.0-47.0); LYMPH # 2.1 10*3/uL (1.3-4.4); LYMPH % 35.4 % (27.0-41.0); MEAN CELL VOLUME 80.1 fl (81.0-99.0); MEAN CORPUSCULAR HGB CONC 31.2 g/dl (33.0-37.0); MEAN PLATELET VOLUME 10.1 fl (9.6-12.3); MONO # 0.7 10*3/uL (0.1-1.0); MONO % 10.8 % (3.0-9.0); NEUT # 3.1 10*3/uL (2.3-7.9); NEUT % 51.6 % (47.0-73.0); PLATELET COUNT AUTOMATED 157 10*3/uL (130-400); RED BLOOD COUNT 3.56 10*6/uL (4.10-5.10); RED CELL DISTRI WIDTH 19.4 % (0-14.5)
[2020-08-19 14:05] LABS: ALBUMIN 2.8 gm/dl (3.1-4.5); ALKALINE PHOSPHATASE 141 U/L (45-117); BUN 3 mg/dl (7-24); CHLORIDE 101 mmol/L (98-107); CREATININE 0.88 mg/dL (0.55-1.02); POTASSIUM 3.8 mmol/L (3.5-5.1); SGOT/AST 139 IU/L (3-35); SGPT/ALT 53 U/L (12-78); SODIUM 133 mmol/L (136-145); TOTAL PROTEIN 8.1 gm/dL (6.4-8.2)
[2020-08-19 14:07] LABS: ACT PARTIAL THROMBO TIME 33.7 SECONDS (20.0-32.1); INTERNATIONAL NORM RATIO 1.3 (2.0-3.5)
== END 2020-08-19 16:02 | disposition left against medical advice (07) ==
LOC: ED 13:24
PROVIDERS: Emergency Medicine
DX: F10.129 Alcohol abuse with intoxication, unspecified (principal); F32.9 Major depressive disorder, single episode, unspecified; F41.9 Anxiety disorder, unspecified; Z79.899 Other long term (current) drug therapy; Y90.8 Blood alcohol level of 240 mg/100 ml or more

== ENCOUNTER → 2020-09-19 | Outpatient (CLI) | payer OTHER ==
[2020-09-19 10:17] LABS: BASO # 0.1 10*3/uL (0.0-0.1); EOS # 0.1 10*3/uL (0.0-0.4); EOS % 1.3 % (1.0-4.0); HEMATOCRIT 26.8 % (37.0-47.0); LYMPH # 0.8 10*3/uL (1.3-4.4); LYMPH % 13.1 % (27.0-41.0); MEAN CORPUSCULAR HGB CONC 29.9 g/dl (33.0-37.0); MEAN PLATELET VOLUME 10.1 fl (9.6-12.3); MONO # 0.3 10*3/uL (0.1-1.0); MONO % 5.7 % (3.0-9.0); NEUT # 4.7 10*3/uL (2.3-7.9); NEUT % 78.6 % (47.0-73.0); PLATELET COUNT AUTOMATED 315 10*3/uL (130-400); RED BLOOD COUNT 3.48 10*6/uL (4.10-5.10); RED CELL DISTRI WIDTH 18.6 % (0-14.5); WHITE BLOOD COUNT 5.9 10*3/uL (4.8-10.8)
[2020-09-19 10:36] LABS: ACT PARTIAL THROMBO TIME 32.9 SECONDS (20.0-32.1); INTERNATIONAL NORM RATIO 1.3 (2.0-3.5)
[2020-09-19 10:36] LABS: ALBUMIN 2.8 gm/dl (3.1-4.5); ALKALINE PHOSPHATASE 164 U/L (45-117); BUN 7 mg/dl (7-24); CHLORIDE 89 mmol/L (98-107); CREATININE 1.09 mg/dL (0.55-1.02); IRON 16 ug/dL (50-170); SGOT/AST 93 IU/L (3-35); SGPT/ALT 49 U/L (12-78); SODIUM 123 mmol/L (136-145); TOTAL IRON BINDING CAPACITY 507 ug/dl (250-450); TOTAL PROTEIN 7.8 gm/dL (6.4-8.2)
[2020-09-20 06:11] LABS: HEP B CORE AB TOTAL Negative (Negative); HEPATITIS B SURFACE AB Non Reactive (.); HEPATITIS B SURFACE AG Negative (Negative)
[2020-09-20 08:08] LABS: AFP TUMOR MARKER 7.5 ng/mL (0.0-8.3); ALPHA-1-ANTITRYPSIN, SERUM 203 mg/dL (100-188)
[2020-09-20 14:08] LABS: t-TRANSGLUTAMINASE (tTG) IGA <2 U/mL (0-3); t-TRANSGLUTAMINASE (tTG) IgG 2 U/mL (0-5)
[2020-09-20 15:10] LABS: ANTI-SMOOTH MUSCLE ANTIBODY 20 Units (0-19)
[2020-09-20 19:10] LABS: HCV LOG10 6.223 (.); HEPATITIS C QNT 1670000 IU/mL (.)
== END | disposition home or self-care (01) ==
LOC: LAB 09:24
PROVIDERS: Internal Medicine Gastroenterology; ATTEND Nurse Practitioner Family
DX: K74.60 Unspecified cirrhosis of liver (principal); R19.7 Diarrhea, unspecified; R94.5 Abnormal results of liver function studies; Z11.59 Encounter for screening for other viral diseases; Z72.89 Other problems related to lifestyle

== ENCOUNTER → 2020-09-19 | Outpatient (CLI) | payer OTHER ==
[2020-09-19 12:10] LABS: BODY FLUID WBC 161 /uL
[2020-09-19 13:25] LABS: BF LYMPHOCYTES 43 %; BF MACROPHAGES 26 %; BF MESOTHELIALS 9 %; BF MONOCYTES 11 %; BF NEUTROPHILS 10 %
== END | disposition home or self-care (01) ==
LOC: US 06:46 → EDSTATUS 09:30 → US 09:30
PROVIDERS: ATTEND Internal Medicine Gastroenterology
DX: R18.8 Other ascites (principal); K74.60 Unspecified cirrhosis of liver; Z88.8 Allergy status to other drugs, medicaments and biological substances

== ENCOUNTER 2020-09-26 16:13 | Inpatient (IN) | payer OTHER ==
[~2020-09-26] VITALS: Ht 170.1 cm; Wt 86.2 kg
[2020-09-26 16:18] VITALS: BP 136/52
[2020-09-26 17:15] LABS: BASO # 0.1 10*3/uL (0.0-0.1); HEMATOCRIT 24.9 % (37.0-47.0); LYMPH # 1.4 10*3/uL (1.3-4.4); LYMPH % 17.1 % (27.0-41.0); MEAN CELL VOLUME 74.8 fl (81.0-99.0); MEAN CORPUSCULAR HGB 22.5 pg (27.0-31.0); MEAN CORPUSCULAR HGB CONC 30.1 g/dl (33.0-37.0); MEAN PLATELET VOLUME 9.7 fl (9.6-12.3); MONO # 1.3 10*3/uL (0.1-1.0); MONO % 15.8 % (3.0-9.0); NEUT # 5.3 10*3/uL (2.3-7.9); NEUT % 65.8 % (47.0-73.0); PLATELET COUNT AUTOMATED 304 10*3/uL (130-400); RED BLOOD COUNT 3.33 10*6/uL (4.10-5.10)
[2020-09-26 17:36] LABS: ALBUMIN 2.5 gm/dl (3.1-4.5); ALKALINE PHOSPHATASE 140 U/L (45-117); BUN 4 mg/dl (7-24); CHLORIDE 100 mmol/L (98-107); CREATININE 0.89 mg/dL (0.55-1.02); LIPASE 507 U/L (73-393); POTASSIUM 4.4 mmol/L (3.5-5.1); SGOT/AST 146 IU/L (3-35); SGPT/ALT 63 U/L (12-78); SODIUM 133 mmol/L (136-145); TOTAL PROTEIN 7.4 gm/dL (6.4-8.2)
[2020-09-26 17:40] VITALS: BP 155/77
--- NOTE | 2020-09-26 19:44 | NUR ---
PT RESTING IN BED WITH EYES CLOSED. NO ACUTE DISTRESS. SIDERAILS UP X2, CALL LIGHT WITHIN REACH
--- NOTE | 2020-09-26 20:35 | NUR ---
PER DR GUZMAN, WE ARE TO HOLD BLOOD ON THIS PT FOR NOW
--- NOTE | 2020-09-26 21:33 | NUR ---
PT RESTING IN BED WITH EYES CLOSED. NO ACUTE DISTRESS. SIDERAILS UP X2
--- NOTE | 2020-09-26 23:11 | NUR ---
PT PROVIDED LUNCH BOX
[2020-09-27] VITALS (11 sets, daily range): BP systolic 114–155; BP diastolic 54–88
--- NOTE | 2020-09-27 00:05 | NUR ---
A 39, admitted to , under the services of ANGÉLICA Patel DO with a diagnosis of ALCOHOL ABUSE. Chief complaint is N/V. Patient arrived via bed from ER. Monitor applied. Initial assessment completed. Vital signs taken and recorded. ANGÉLICA PATEL DO notified of admission to the unit. Orders received. See assessment for past medical history, medications and allergies. Patient and/or family oriented to unit. [facility] visitation policy reviewed. Clothing/patient valuable form completed. SKYLER OCAMPO
[2020-09-27] MEDS ORDERED: DICYCLOMINE HCL10 MG PO (01:38)
--- NOTE | 2020-09-27 01:43 | NUR ---
PT MED REC UPDATED PER MED CLAIM HISTORY. PT STATES "I TAKE LOTS OF MEDS. I DONT KNOW NAMES OR ANYTHING. THEYRE ALL IN THE COMPUTER" WILL VERIFY ALL MEDICATIONS WITH PHARMACY IN THE MORNING
--- NOTE | 2020-09-27 03:00 | NUR ---
PT SLEEPING AT THIS TIME. PT STILL HAS NOT VOIDED FOR URINE TEST. WILL CHECK AGAIN LATER.
--- NOTE | 2020-09-27 06:26 | NUR ---
URINE COLLECTED. PT LYING IN BED. IV INFUSING WITHOUT DIFFICULTY
[2020-09-27 06:39] LABS: BILIRUBIN Negative (Negative); BLOOD Negative (Negative); CLARITY Clear (Clear); COLOR Yellow (Yellow); GLUCOSE Negative (Negative); KETONE Negative (Negative); LEUKO ESTERASE Negative (Negative); NITRITE Negative (Negative); SPECIFIC GRAVITY <= 1.005 (1.001-1.030)
[2020-09-27 06:52] LABS: BASO # 0.1 10*3/uL (0.0-0.1); BASO % 0.7 % (0.0-1.0); EOS % 0.4 % (1.0-4.0); HEMATOCRIT 24.8 % (37.0-47.0); LYMPH # 2.4 10*3/uL (1.3-4.4); LYMPH % 25.5 % (27.0-41.0); MEAN CORPUSCULAR HGB 22.6 pg (27.0-31.0); MONO # 1.1 10*3/uL (0.1-1.0); MONO % 11.7 % (3.0-9.0); NEUT # 5.9 10*3/uL (2.3-7.9); NEUT % 61.4 % (47.0-73.0); PLATELET COUNT AUTOMATED 263 10*3/uL (130-400); RED BLOOD COUNT 3.18 10*6/uL (4.10-5.10); WHITE BLOOD COUNT 9.6 10*3/uL (4.8-10.8)
[2020-09-27 06:58] LABS: ALBUMIN 2.6 gm/dl (3.1-4.5); ALKALINE PHOSPHATASE 139 U/L (45-117); BUN 5 mg/dl (7-24); CHLORIDE 100 mmol/L (98-107); CREATININE 0.79 mg/dL (0.55-1.02); POTASSIUM 3.9 mmol/L (3.5-5.1); SGOT/AST 143 IU/L (3-35); SGPT/ALT 65 U/L (12-78); SODIUM 131 mmol/L (136-145); TOTAL PROTEIN 7.4 gm/dL (6.4-8.2)
[2020-09-27 06:59] LABS: YEAST TRACE
--- NOTE | 2020-09-27 07:07 | NUR ---
CALLED OUT SAYING "I FEEL LIKE I'M GOING TO HAVE A SEIZURE." IV ATIVAN GIVEN AT THIS TIME. PT STATES SHE FEELS INTERNAL TREMORS BADLY, DOESN'T FEEL RIGHT. SLIGHT EXTERNAL TREMORS NOTED. SPEECH CLEAR/APPROPRIATE. CALL LIGHT IN REACH. WILL MONITOR FOR EFFECTIVENESS.
--- NOTE | 2020-09-27 08:01 | NUR ---
PER PT, ATIVAN EFFECTIVE.
[2020-09-27 10:05] LABS: ACT PARTIAL THROMBO TIME 31.3 SECONDS (20.0-32.1); INTERNATIONAL NORM RATIO 1.3 (2.0-3.5)
--- NOTE | 2020-09-27 11:24 | NUR ---
PATIENT GIVEN PO ATIVAN FOR STATED ANXIETY. WILL MONITOR EFFECTIVENSS. CALL LIGHT WITHIN REACH.
--- NOTE | 2020-09-27 11:26 | NUR ---
AWARE OF CONSULT. PLAN OF REGD IN AM, FULL LIQUIDS NOW, NPO AT MIDNIGHT.
--- NOTE | 2020-09-27 13:20 | NUR ---
Otr Truck Driver in to talk to patient. Patient states lives at HOME with JAD. There are NO steps in the home. Physician: ISABEL MCKEON Pharmacy: [facility] services: NONE Patient's level of ADLs: INDEPENDENT Patient has working utilities: YES DME: NONE Follow-up physician's appointment after d/c: WILL BE MADE BY HOSPITALIST NURSE DIRECTOR ON DISCHARGE Does patient want to access PORTAL?: NO Discharge plan PT LIVES AT HOME WITH HER JAD AND IS INDEPENDENT IN HER CARE. DENIES SHE WILL HAVE ANY NEEDS ON DISCHARGE. PLAN IS TO RETURN HOME WITH JAD WHEN MEDICALLY STABLE. WILL CONTINUE TO FOLLOW. STATES HE WILL HAVE A RIDE HOME.. SULEMA BALL
[2020-09-27 15:41] LABS: HEMATOCRIT 21.7 % (37.0-47.0); MEAN CORPUSCULAR HGB 22.7 pg (27.0-31.0); MEAN CORPUSCULAR HGB CONC 31.3 g/dl (33.0-37.0); PLATELET COUNT AUTOMATED 215 10*3/uL (130-400); RED CELL DISTRI WIDTH 17.6 % (0-14.5)
--- NOTE | 2020-09-27 15:42 | NUR ---
HGB 6.8. NOTIFIED. ORDERED TO GIVE 1UNIT PRBC WHEN SHE COMES BACK FROM [place].
[2020-09-27 15:43] LABS: MEAN CELL VOLUME 72.3 fl (81.0-99.0)
[2020-09-27 15:54] LABS: PLATELET SUFFICIENCY NORMAL (NORMAL); POLYCHROMASIA SLIGHT; TOTAL CELLS COUNTED 100 #CELLS
[2020-09-27 15:56] LABS: MICROCYTOSIS MODERATE
--- NOTE | 2020-09-27 16:01 | NUR ---
PER RADIOLOGY, PT REFUSING [facility].
--- NOTE | 2020-09-27 16:48 | NUR ---
PATIENT STATES HAVING ANXIETY. ATIVAN IV GIVEN PER JAN. WILL MONITOR EFFECTIVENESS.
--- NOTE | 2020-09-27 17:22 | NUR ---
PATIENT RESTING COMFORTABLY IN BED. WILL CONTINUE TO MONITOR. CALL LIGHT WITHIN REACH.
--- NOTE | 2020-09-27 17:32 | NUR ---
IV ATIVAN EFFECTIVE PER PT. ANXIETY MORE MANAGEABLE AT THIS TIME.
--- NOTE | 2020-09-27 18:47 | NUR ---
BLOOD TRANSFUSION INIIATED PER POLICY. WILL MONITOR CLOSELY. CALL LIGHT IN REACH. VSS.
--- NOTE | 2020-09-27 19:30 | NUR ---
REPORT RECEIVED. PT BLOOD TRANSFUSING AT THIS TIME. VSS. PT TOLERATING WELL. NO DISTRESS NOTED. CALL LIGHT IN REACH
--- NOTE | 2020-09-27 19:32 | NUR ---
30 MIN VITALS TAKEN AND DOCUMENTED IN TAR
--- NOTE | 2020-09-27 20:32 | NUR ---
1 HOUR VITALS TAKEN AND DOCUMENTED
--- NOTE | 2020-09-27 21:24 | NUR ---
BLOOD INFUSION COMPLETE AT THIS TIME
--- NOTE | 2020-09-27 21:54 | NUR ---
POST VITALS TAKEN
--- NOTE | 2020-09-27 22:30 | NUR ---
PT LYING IN BED SLEEPING. IV ANTIBIOTICS INFUSING WITHOUT DIFFICULTY. CALL LIGHT IN REACH
[2020-09-28] VITALS (7 sets, daily range): BP systolic 120–149; BP diastolic 74–83
--- NOTE | 2020-09-28 01:21 | NUR ---
24 HR chart check completed.
--- NOTE | 2020-09-28 02:00 | NUR ---
PT SLEEPING AT THIS TIME. NO S/S OF DISTRESS NOTED. CALL LIGHT IN REACH
--- NOTE | 2020-09-28 04:58 | NUR ---
DR. ARGELIA GARCIA MORNING DOSE OF PO ATIVAN THIS AM.
[2020-09-28 06:47] LABS: BASO % 0.6 % (0.0-1.0); EOS % 0.8 % (1.0-4.0); LYMPH # 1.3 10*3/uL (1.3-4.4); LYMPH % 27.5 % (27.0-41.0); MEAN CORPUSCULAR HGB 24.2 pg (27.0-31.0); MEAN CORPUSCULAR HGB CONC 31.3 g/dl (33.0-37.0); MEAN PLATELET VOLUME 9.9 fl (9.6-12.3); MONO # 0.7 10*3/uL (0.1-1.0); MONO % 13.7 % (3.0-9.0); NEUT # 2.7 10*3/uL (2.3-7.9); NEUT % 57.2 % (47.0-73.0); PLATELET COUNT AUTOMATED 156 10*3/uL (130-400); RED BLOOD COUNT 2.98 10*6/uL (4.10-5.10); RED CELL DISTRI WIDTH 17.7 % (0-14.5); WHITE BLOOD COUNT 4.8 10*3/uL (4.8-10.8)
[2020-09-28 06:48] LABS: MEAN CELL VOLUME 77.2 fl (81.0-99.0)
[2020-09-28 06:54] LABS: ALBUMIN 2.2 gm/dl (3.1-4.5); ALKALINE PHOSPHATASE 114 U/L (45-117); BUN 5 mg/dl (7-24); CHLORIDE 105 mmol/L (98-107); CREATININE 0.75 mg/dL (0.55-1.02); SGOT/AST 92 IU/L (3-35); SGPT/ALT 46 U/L (12-78); SODIUM 135 mmol/L (136-145); TOTAL PROTEIN 6.4 gm/dL (6.4-8.2)
--- NOTE | 2020-09-28 09:26 | NUR ---
PT OFF FLOOR FOR EGD.
--- NOTE | 2020-09-28 11:05 | NUR ---
BACK TO ROOM FROM EGD. STABLE. NO COMPLAINTS VOICED.
--- NOTE | 2020-09-28 12:35 | NUR ---
PT CONTINUES TO DENY NEEDS AT HOME ON DISCHARGE. WILL CONTINUE TO FOLLOW.
--- NOTE | 2020-09-28 15:13 | NUR ---
Patient signed out AMA. Patient encouraged to stay and advised of possible consequences of premature discharge. Physician and stewarding supervisor JITENDRA CHOUDHARY notified. Patient instructed what to do regarding care post-departure from the hospital; emergency phone numbers provided. Patent was accompanied by FRIEND. BETSY CAT A IV REMOVED, HEART MONITOR COLLECTED
--- NOTE | 2020-09-28 15:23 | NUR ---
AND BASKETBALL ASSEMBLER JITENDRA INFORMED OF PT AMA.
== END 2020-09-28 15:23 | disposition left against medical advice (07) | DRG 280 ==
LOC: ED 16:13 → EDHOLD 22:28 → 5E 22:28 → EDHOLD 22:54 → 5E 23:43
PROVIDERS: Emergency Medicine; Family Medicine; Hospitalist; Internal Medicine; ADMIT Internal Medicine; ATTEND Internal Medicine
PROC: 30233N1 Transfusion of Nonautologous Red Blood Cells into Peripheral Vein, Percutaneous Approach (ICD-10-PCS; principal; 2020-09-27)
PROC: 0W9G3ZZ Drainage of Peritoneal Cavity, Percutaneous Approach (ICD-10-PCS; 2020-09-28)
PROC: 0DB68ZX Excision of Stomach, Via Natural or Artificial Opening Endoscopic, Diagnostic (ICD-10-PCS; 2020-09-28)
DX: K70.31 Alcoholic cirrhosis of liver with ascites (principal); F10.239 Alcohol dependence with withdrawal, unspecified; K52.9 Noninfective gastroenteritis and colitis, unspecified; K86.0 Alcohol-induced chronic pancreatitis; E43 Unspecified severe protein-calorie malnutrition; B19.20 Unspecified viral hepatitis C without hepatic coma; F31.9 Bipolar disorder, unspecified; E78.5 Hyperlipidemia, unspecified; K21.9 Gastro-esophageal reflux disease without esophagitis; E87.1 Hypo-osmolality and hyponatremia; R73.9 Hyperglycemia, unspecified; R74.01 Elevation of levels of liver transaminase levels; D64.9 Anemia, unspecified; F41.1 Generalized anxiety disorder; F17.210 Nicotine dependence, cigarettes, uncomplicated; B37.81 Candidal esophagitis; Z53.29 Procedure and treatment not carried out because of patient's decision for other reasons; K22.10 Ulcer of esophagus without bleeding; K29.20 Alcoholic gastritis without bleeding; Z82.5 Family history of asthma and other chronic lower respiratory diseases; Z88.1 Allergy status to other antibiotic agents; Z82.0 Family history of epilepsy and other diseases of the nervous system; Z91.018 Allergy to other foods; Z83.3 Family history of diabetes mellitus; Z91.030 Bee allergy status; Z82.49 Family history of ischemic heart disease and other diseases of the circulatory system; Z79.899 Other long term (current) drug therapy

== ENCOUNTER 2020-10-05 09:32 | Emergency (ER) | payer OTHER ==
[2020-10-05 10:21] LABS: BASO # 0.1 10*3/uL (0.0-0.1); BASO % 0.8 % (0.0-1.0); EOS % 0.3 % (1.0-4.0); HEMATOCRIT 27.1 % (37.0-47.0); LYMPH # 2.1 10*3/uL (1.3-4.4); LYMPH % 33.4 % (27.0-41.0); MEAN CELL VOLUME 78.1 fl (81.0-99.0); MEAN CORPUSCULAR HGB 23.1 pg (27.0-31.0); MEAN CORPUSCULAR HGB CONC 29.5 g/dl (33.0-37.0); MONO # 0.9 10*3/uL (0.1-1.0); MONO % 13.8 % (3.0-9.0); NEUT # 3.3 10*3/uL (2.3-7.9); NEUT % 51.4 % (47.0-73.0); PLATELET COUNT AUTOMATED 155 10*3/uL (130-400); RED BLOOD COUNT 3.47 10*6/uL (4.10-5.10); RED CELL DISTRI WIDTH 19.7 % (0-14.5); WHITE BLOOD COUNT 6.4 10*3/uL (4.8-10.8)
[2020-10-05 10:36] LABS: ALBUMIN 2.6 gm/dl (3.1-4.5); ALKALINE PHOSPHATASE 126 U/L (45-117); BUN 2 mg/dl (7-24); CHLORIDE 104 mmol/L (98-107); CREATININE 0.69 mg/dL (0.55-1.02); POTASSIUM 3.5 mmol/L (3.5-5.1); SGOT/AST 75 IU/L (3-35); SGPT/ALT 38 U/L (12-78); SODIUM 135 mmol/L (136-145); TOTAL PROTEIN 7.3 gm/dL (6.4-8.2)
== END 2020-10-05 12:41 | disposition home or self-care (01) ==
LOC: ED 09:32
PROVIDERS: Student in an Organized Health Care Education/Training Program
DX: F10.129 Alcohol abuse with intoxication, unspecified (principal); F41.9 Anxiety disorder, unspecified; F32.9 Major depressive disorder, single episode, unspecified; F17.200 Nicotine dependence, unspecified, uncomplicated; Z88.8 Allergy status to other drugs, medicaments and biological substances; Z91.030 Bee allergy status; Z79.899 Other long term (current) drug therapy; Y90.9 Presence of alcohol in blood, level not specified

== ENCOUNTER 2020-10-09 09:04 | Emergency (ER) | payer OTHER ==
[~2020-10-09] VITALS: Ht 162.5 cm; Wt 98.0 kg
[2020-10-09 09:45] LABS: BASO # 0.1 10*3/uL (0.0-0.1); BASO % 1.8 % (0.0-1.0); EOS # 0.1 10*3/uL (0.0-0.4); EOS % 1.2 % (1.0-4.0); HEMATOCRIT 28.8 % (37.0-47.0); LYMPH # 1.7 10*3/uL (1.3-4.4); LYMPH % 34.5 % (27.0-41.0); MEAN CELL VOLUME 78.3 fl (81.0-99.0); MEAN CORPUSCULAR HGB 22.6 pg (27.0-31.0); MEAN CORPUSCULAR HGB CONC 28.8 g/dl (33.0-37.0); MEAN PLATELET VOLUME 10.2 fl (9.6-12.3); MONO # 0.6 10*3/uL (0.1-1.0); MONO % 11.2 % (3.0-9.0); NEUT # 2.5 10*3/uL (2.3-7.9); NEUT % 51.1 % (47.0-73.0); PLATELET COUNT AUTOMATED 214 10*3/uL (130-400); RED BLOOD COUNT 3.68 10*6/uL (4.10-5.10); RED CELL DISTRI WIDTH 20.8 % (0-14.5); WHITE BLOOD COUNT 4.9 10*3/uL (4.8-10.8)
[2020-10-09 09:56] LABS: ACT PARTIAL THROMBO TIME 30.2 SECONDS (20.0-32.1); INTERNATIONAL NORM RATIO 1.2 (2.0-3.5)
[2020-10-09 10:01] LABS: ALBUMIN 2.6 gm/dl (3.1-4.5); ALKALINE PHOSPHATASE 128 U/L (45-117); BUN 3 mg/dl (7-24); CHLORIDE 113 mmol/L (98-107); CREATININE 0.85 mg/dL (0.55-1.02); LIPASE 202 U/L (73-393); POTASSIUM 3.9 mmol/L (3.5-5.1); SGOT/AST 65 IU/L (3-35); SGPT/ALT 36 U/L (12-78); SODIUM 145 mmol/L (136-145); TOTAL PROTEIN 8.2 gm/dL (6.4-8.2)
[2020-10-09 10:06] LABS: BETA-HCG, QUANT < 1.0 mIU/mL (1-3)
== END 2020-10-09 13:02 | disposition home or self-care (01) ==
LOC: ED 09:04
PROVIDERS: Emergency Medicine
DX: F10.129 Alcohol abuse with intoxication, unspecified (principal); Z88.8 Allergy status to other drugs, medicaments and biological substances; Z91.030 Bee allergy status; Z79.899 Other long term (current) drug therapy

== ENCOUNTER 2020-11-06 10:36 | Emergency (ER) | payer OTHER ==
[~2020-11-06] VITALS: Ht 162.5 cm; Wt 94.8 kg
[2020-11-06 11:11] LABS: BASO % 0.7 % (0.0-1.0); HEMATOCRIT 27.8 % (37.0-47.0); LYMPH # 1.7 10*3/uL (1.3-4.4); LYMPH % 40.8 % (27.0-41.0); MEAN CELL VOLUME 74.5 fl (81.0-99.0); MEAN CORPUSCULAR HGB 22.8 pg (27.0-31.0); MEAN CORPUSCULAR HGB CONC 30.6 g/dl (33.0-37.0); MONO # 0.6 10*3/uL (0.1-1.0); MONO % 14.1 % (3.0-9.0); NEUT # 1.9 10*3/uL (2.3-7.9); NEUT % 44.4 % (47.0-73.0); PLATELET COUNT AUTOMATED 123 10*3/uL (130-400); RED BLOOD COUNT 3.73 10*6/uL (4.10-5.10); RED CELL DISTRI WIDTH 23.7 % (0-14.5); WHITE BLOOD COUNT 4.2 10*3/uL (4.8-10.8)
[2020-11-06 11:22] LABS: ACT PARTIAL THROMBO TIME 32.6 SECONDS (20.0-32.1); INTERNATIONAL NORM RATIO 1.3 (2.0-3.5)
[2020-11-06 11:24] LABS: ALKALINE PHOSPHATASE 122 U/L (45-117); BUN 3 mg/dl (7-24); CHLORIDE 101 mmol/L (98-107); CREATININE 0.79 mg/dL (0.55-1.02); LIPASE 369 U/L (73-393); SGOT/AST 198 IU/L (3-35); SGPT/ALT 69 U/L (12-78); SODIUM 132 mmol/L (136-145); TOTAL PROTEIN 8.2 gm/dL (6.4-8.2)
[2020-11-06 11:28] LABS: BETA-HCG, QUANT < 1.0 mIU/mL (1-3)
== END 2020-11-06 13:30 | disposition home or self-care (01) ==
LOC: ED 10:36
PROVIDERS: Family Medicine
DX: S80.212A Abrasion, left knee, initial encounter (principal); S80.211A Abrasion, right knee, initial encounter; F10.920 Alcohol use, unspecified with intoxication, uncomplicated; F32.9 Major depressive disorder, single episode, unspecified; F41.9 Anxiety disorder, unspecified; Z91.018 Allergy to other foods; Z91.030 Bee allergy status; Z88.1 Allergy status to other antibiotic agents; Z88.8 Allergy status to other drugs, medicaments and biological substances; Z79.899 Other long term (current) drug therapy; W19.XXXA Unspecified fall, initial encounter; Y93.89 Activity, other specified; Y92.89 Other specified places as the place of occurrence of the external cause; Y99.8 Other external cause status; Y90.8 Blood alcohol level of 240 mg/100 ml or more